=== PATIENT | female | born 1945 | race Caucasian/White ===

== ENCOUNTER 2020-06-11 14:51 | Outpatient (REF) | payer BC, SELFPAY ==
[2020-06-11 16:53] LABS: Appearance Urine CLEAR; Color Urine YELLOW; Glucose Urine UA NEG (NEG); Leukocyte Esterase Urine NEG (NEG); Nitrite Urine NEG (NEG); Specific Gravity - Urine <= 1.005 (1.005-1.025); Urine Blood NEG (NEG); Urine Ketones NEG (NEG); Urine Protein NEG (NEG-TRACE)
[2020-06-11 17:10] LABS: Calcium 10.1 mg/dL (8.4-10.2)
[2020-06-14 17:08] LABS: Calcium, Ionized 5.4 mg/dL (4.8-5.6)
== END 2020-06-11 14:52 | disposition home or self-care (01) ==
LOC: HO.HMGCLDS 14:51
PROVIDERS: PCP Internal Medicine; Visit Provider Nurse Practitioner Family
DX: E83.52 Hypercalcemia (principal); R35.0 Frequency of micturition
CPT/HCPCS: 81003; 82310; 82330

== ENCOUNTER 2020-12-06 08:23 | Outpatient (REF) | payer BC, SELFPAY ==
[2020-12-06 11:42] LABS: Hematocrit 42.6 % (37-47); Hemoglobin 13.9 g/dl (12.0-16.0); Mean Corpuscular HGB Conc 32.6 g/dl (31.0-35.0); Mean Corpuscular Hemoglobin 31.4 pg (27.0-33.0); Mean Corpuscular Volume 96.2 fL (80-98); Platelet Count 206 X10*3/uL (160-400); Red Blood Count 4.43 X10*6/uL (4.20-5.50); Red Cell Distribution Width 14.9 % (11.0-16.0); White Blood Count 5.2 X10*3/uL (4.8-10.8)
[2020-12-06 12:10] LABS: TSH reflex Free T4 1.54 uIU/mL (0.32-4.0); Vitamin D 25-OH Total 38.9 ng/mL (>30)
[2020-12-06 12:16] LABS: Alanine Aminotransferase 23 U/L (0-31); Albumin Level 4.3 g/dL (3.5-5.0); Alkaline Phosphatase 67 U/L (39-117); Anion Gap 14 (12-20); Aspartate Amino Transferase 30 U/L (5-31); Blood Urea Nitrogen 19 mg/dL (9-16); Calcium 10.4 mg/dL (8.4-10.2); Carbon Dioxide 27 mmol/L (22-29); Chloride 108 mmol/L (96-108); Cholesterol 205 mg/dL; Estimated Glomerular Filt Rate > 60; Glucose Fasting 93 mg/dL (60-99); HDL Cholesterol 73 mg/dL; LDL Cholesterol Calculated 119 mg/dl; Potassium 4.6 mmol/L (3.3-5.1); Sodium 144 mmol/L (135-145); Total Protein 6.3 g/dL (6.5-8.0); Triglycerides 65 mg/dL
[2020-12-08 10:26] LABS: Calcium (PTHI) 10.2 mg/dL (8.6-10.4); PTHI 80 pg/mL (14-64)
== END 2020-12-06 08:24 | disposition home or self-care (01) ==
LOC: HO.HMGCLDS 08:23
PROVIDERS: PCP Internal Medicine; Visit Provider Internal Medicine
DX: E78.5 Hyperlipidemia, unspecified (principal); E83.52 Hypercalcemia; G45.9 Transient cerebral ischemic attack, unspecified; G62.9 Polyneuropathy, unspecified
CPT/HCPCS: 36415; 80053; 80061; 82306; 83970; 84443; 85027

== ENCOUNTER 2021-01-07 10:54 | Outpatient (REF) | payer MEDICARE, SELFPAY ==
--- NOTE | ~2021-01-07 | MM_ITS ---
EXAMINATION: MM DIAGNOSTIC DIGITAL BREAST TOMOSYNTHESIS, BILATERAL CLINICAL INFORMATION: Palpable abnormalities about the right axilla. The lifetime risk of breast cancer based on the Tyrer-Cuzick Model is 2.8%. COMPARISON: Mammography: 06/10/2018 and studies dating back to 04/11/2007. TECHNIQUE: Digital breast tomosynthesis is performed in both the craniocaudal and mediolateral oblique views along with computer-aided detection (CAD). Synthesized 2D images are generated from the tomosynthesis. Additional right exaggerated craniocaudal view performed. FINDINGS: There are scattered areas of fibroglandular density (ACR BI-RADS breast composition Category b). There is a stable region of architectural distortion about the deep lateral aspect of the right breast which has been seen going back to study of 04/11/2007. Multiple lymph nodes are seen in region of palpable location within the right axilla. The lymph nodes appear similar to previous studies. The left breast appears unremarkable Targeted right breast ultrasound did not demonstrate any suspicious cystic or solid mass or region of architectural distortion about the lateral aspect of the breast. Targeted ultrasound examination to palpable region in the axilla demonstrates multiple lymph nodes with only 1 having a minimally thickened cortex to approximately 3.5 mm. There is no lobulation of the cortex and there is normal fatty cleft present. Patient states that she had her vaccine injection within the right arm. Results are discussed with the patient at time of visit. MM/MM tomosynthesis diagnostic BI IMPRESSION: There are no significant changes from prior study. ASSESSMENT: BI-RADS 2: Benign RECOMMENDATION: 1. Routine annual mammography screening due in 12 months. 2. Clinical follow-up for palpable abnormality. This patient's information was entered into a reminder system with a target due date for their next mammogram.
--- NOTE | ~2021-01-07 | US_ITS ---
EXAMINATION: US DIAGNOSTIC ULTRASOUND BREAST, RIGHT CLINICAL INFORMATION: Right axilla palpable region. COMPARISON: Mammography of same day and studies dating back to April 11, 2007. TECHNIQUE: Ultrasound of the breast is performed with real-time sosa scale imaging and color Doppler. FINDINGS: Targeted right breast ultrasound did not demonstrate any suspicious cystic or solid mass or region of architectural distortion about the lateral aspect of the breast. Targeted ultrasound examination to palpable region in the axilla demonstrates multiple lymph nodes with only one having a minimally thickened cortex to approximately 3.5 mm. There is no lobulation of the cortex and there is normal fatty cleft present. Patient states that she had her vaccine injection within the right arm Results are discussed with the patient at time of visit. US/US breast RT limited IMPRESSION: There are no significant changes from prior study. ASSESSMENT: BI-RADS 2: Benign RECOMMENDATION: Routine annual mammography screening due in 12 months. Clinical follow-up for palpable abnormality.
== END 2021-01-07 10:55 | disposition home or self-care (01) ==
LOC: HO.MAMMO 10:54
PROVIDERS: Visit Provider Internal Medicine
DX: N63.31 Unspecified lump in axillary tail of the right breast (principal); R59.0 Localized enlarged lymph nodes
CPT/HCPCS: 76642; 77062; 77066

== ENCOUNTER 2021-03-08 09:28 | Outpatient (REF) | payer MEDICARE, SELFPAY ==
[2021-03-08 12:05] LABS: Cholesterol 219 mg/dL; HDL Cholesterol 79 mg/dL; LDL Cholesterol Calculated 132 mg/dl; Triglycerides 41 mg/dL
== END 2021-03-08 09:29 | disposition home or self-care (01) ==
LOC: HO.HMGCLDS 09:28
PROVIDERS: PCP Internal Medicine; Visit Provider Internal Medicine
DX: E78.5 Hyperlipidemia, unspecified (principal)
CPT/HCPCS: 36415; 80061

== ENCOUNTER 2021-03-16 07:36 | Day surgery (SDC) | payer MEDICARE, SELFPAY ==
[2021-03-11 14:21] VITALS: BMI 23.9
[2021-03-14 09:38] VITALS: BMI 24.3
--- NOTE | 2021-03-15 09:07 | P.CONAN_ITS ---
Documented by User: Kirsten Johnson NP 03/15/21 09:31 HPI - Anesthesia Eval Consult details Narrative: 75yo F for Upper Endoscopy and Colonoscopy Cardiac cleared at low risk (saw cardiology 10/2020 with report of palps - loop recorder done and ECHO from [place] reviewed by cardiol) [facility] Active Problems Active Problems: All Active Problems (Updated 12/22/20 @ 12:07 by Della Ellison MD) HTN (hypertension) (Acute) Hyperlipidemia (Acute) Axillary adenopathy (Acute) Neuropathy, peripheral (Acute) AAA (abdominal aortic aneurysm) (Acute) Heart murmur (Acute) TIA (transient ischemic attack) (Acute) Hypercalcemia (Acute) H/O lumbosacral spine surgery (Acute) Past Medical History Medical History AAA (abdominal aortic aneurysm) Axillary adenopathy Cataracts, bilateral Celiac disease GERD (gastroesophageal reflux disease) Glaucoma Heart murmur HTN (hypertension) Hypercalcemia Hyperlipidemia IFG (impaired fasting glucose) Neuropathy, peripheral Osteopenia TIA (transient ischemic attack) Family History Family History Mother Heart problem Father Heart problem Brother Substance use disorder Surgical History Surgical History (Updated 03/14/21 @ 09:48 by Becky Bangura RN) H/O hernia repair H/O lumbosacral spine surgery History of esophagogastroduodenoscopy (EGD) History of knee replacement, total Hx of appendectomy Hx of cataract surgery Hx of colonoscopy Social History Social History (Updated 11/23/20 @ 11:13 by Meghan Clarke RN) Housing: House Alcohol intake: current Alcohol intake frequency: a few times a week Alcohol type: wine Patient Tobacco Use Status: Former Tobacco user Quit Date: e-Cigarette/Vaping Use: Never Used service: No Current occupational status: retired Meds Allergies Allergy/AdvReac Type Severity Reaction Status Date / Time gluten Allergy Gastrointestinal Verified 03/14/21 09:41 Upset Home Medications Medication Instructions Recorded Confirmed Last Taken Type aspirin 81 mg tablet,delayed 81 mg PO QAM 11/23/20 03/14/21 Unknown History release atorvastatin 40 mg tablet 40 mg PO BEDTIME 11/23/20 03/14/21 Unknown History celecoxib 200 mg capsule 200 mg PO BEDTIME 11/23/20 03/14/21 Unknown History gabapentin 300 mg capsule 600 mg PO BEDTIME 11/23/20 03/14/21 Unknown History omeprazole 20 mg capsule,delayed 20 mg PO DAILY PRN 11/23/20 03/14/21 Unknown History release telmisartan 20 mg tablet 20 mg PO DAILY 11/23/20 03/14/21 Unknown History trazodone 50 mg tablet 25 mg PO BEDTIME 11/23/20 03/14/21 Unknown History coQ10 (ubiquinol) 03/14/21 Unknown History flaxseed oil 03/14/21 03/14/21 Unknown History vitamin B complex 03/14/21 Unknown History Exam Exam Date and Time: March 15, [id number] Height,Weight and Vital Signs: Height 5 ft 8 in Weight 72.575 kg Pertinent Lab Results Pertinent Lab Results: Laboratory Tests 12/06/20 12/06/20 08:29 08:29 WBC 5.2 Hgb 13.9 Hct 42.6 Plt Count 206 Sodium 144 Potassium 4.6 Chloride 108 Carbon Dioxide 27 BUN 19 H Creatinine 0.78 Narrative Narrative: Per old records Stress 2019: neg at rest and with stress Echo: mild mitral regurg AAA@3.4cm Assessment and Plan Assessment Anesthesia Assessment: Chart Reviewed Documented by User: Tonie Garzon MD 03/16/21 07:29 [facility] Past Medical History Medical History AAA (abdominal aortic aneurysm) Axillary adenopathy Cataracts, bilateral Celiac disease GERD (gastroesophageal reflux disease) Glaucoma Heart murmur HTN (hypertension) Hypercalcemia Hyperlipidemia IFG (impaired fasting glucose) Neuropathy, peripheral Osteopenia TIA (transient ischemic attack) Functional capacity: independent ambulation Patient : No Family History Family History Mother Heart problem Father Heart problem Brother Substance use disorder Family history of problems with anesthesia: No Surgical History Surgical History (Updated 03/14/21 @ 09:48 by Becky Bangura RN) H/O hernia repair H/O lumbosacral spine surgery History of esophagogastroduodenoscopy (EGD) History of knee replacement, total Hx of appendectomy Hx of cataract surgery Hx of colonoscopy History of Problems with Anesthesia: No Social History Social History (Updated 11/23/20 @ 11:13 by Meghan Clarke RN) Housing: House Alcohol intake: current Alcohol intake frequency: a few times a week Alcohol type: wine Patient Tobacco Use Status: Former Tobacco user Quit Date: e-Cigarette/Vaping Use: Never Used service: No Current occupational status: retired [employer] Allergies Allergy/AdvReac Type Severity Reaction Status Date / Time gluten Allergy Gastrointestinal Verified 03/14/21 09:41 Upset Home Medications Medication Instructions Recorded Confirmed Last Taken Type aspirin 81 mg tablet,delayed 81 mg PO QAM 11/23/20 03/14/21 Unknown History release atorvastatin 40 mg tablet 40 mg PO BEDTIME 11/23/20 03/14/21 Unknown History celecoxib 200 mg capsule 200 mg PO BEDTIME 11/23/20 03/14/21 Unknown History gabapentin 300 mg capsule 600 mg PO BEDTIME 11/23/20 03/14/21 Unknown History omeprazole 20 mg capsule,delayed 20 mg PO DAILY PRN 11/23/20 03/14/21 Unknown History release telmisartan 20 mg tablet 20 mg PO DAILY 11/23/20 03/14/21 Unknown History trazodone 50 mg tablet 25 mg PO BEDTIME 11/23/20 03/14/21 Unknown History coQ10 (ubiquinol) 03/14/21 Unknown History flaxseed oil 03/14/21 03/14/21 Unknown History vitamin B complex 03/14/21 Unknown History Exam Airway Mallampati Class: II TM Dist: >3cm Neck ROM: Full Heart: RRR Lungs: CTA Assessment and Plan Final Anesthetic Review Family History of Problems with Anesthesia: No History of Problems with Anesthesia: No
[2021-03-16 08:14] VITALS: BP 102/57; PULSE 78; RESP 16; TEMP 37.1; O2SAT 99
[2021-03-16] MEDS: Lactated Ringers 1,000 ML 100 ML IVCONT (08:15)
[2021-03-16 09:52] VITALS: BP 94/51; PULSE 66; RESP 16; TEMP 36.4; O2SAT 98
--- NOTE | 2021-03-16 09:56 | PM.OP ---
Brief Operative Note Date of Service: 03/16/21 Pre-op diagnosis: Farooq's, Screening Post-op diagnosis: other (Hiatal hernia, Diverticulosis) Procedure: EGD with biopsies, Colonoscopy to the cecum and TI Surgeon: Lavell Bell Anesthesia: MAC Was an Business Banking Sales Assistant used for this Procedure?: No Estimated blood loss (mL): 2.0 Pathology: other (A. Descending duodenum B. EG Junction at 36cm) Condition: stable Disposition: PACU
[2021-03-16 10:07] VITALS: BP 108/54; PULSE 62; RESP 16; TEMP 36.4; O2SAT 97
--- NOTE | 2021-03-16 10:19 | OP_ITS ---
SURGEON: Lavell Bell MD INDICATIONS: The patient presents for evaluation of gastroesophageal reflux, Farooq's esophagus, colorectal cancer screening. Full consent has been obtained from her for this, including risks of bleeding and perforation. PREOPERATIVE DIAGNOSIS: POSTOPERATIVE DIAGNOSIS: PROCEDURE PERFORMED: Esophagogastroduodenoscopy with biopsies, and colonoscopy to the cecum and terminal ileum. ESTIMATED BLOOD LOSS: COMPLICATIONS: ANESTHESIA: Monitored anesthesia care. ASSISTANTS: SPECIMENS: PREOPERATIVE DIAGNOSES: Gastroesophageal reflux, Farooq's esophagus, colorectal cancer screening, and history of celiac disease. POSTOPERATIVE DIAGNOSES: Gastroesophageal reflux, Farooq's esophagus, colorectal cancer screening, and history of celiac disease, hiatal hernia, diverticulosis, and internal hemorrhoids. DESCRIPTION OF PROCEDURE: The patient was placed in the left lateral decubitus position. The Olympus video gastroscope was passed in the posterior oropharynx and upper esophagus under direct vision. The scope was passed slowly into the distal esophagus. The gastroesophageal junction appeared at 36 cm. There was a very minimal irregularity consistent with reflux, but there was no evidence of esophagitis nor any definitive evidence of Farooq's mucosa. The scope entered into the stomach. There was a small to moderate-sized hiatal hernia. The scope was advanced to pylorus and duodenum was cannulated in the descending portion. The duodenum including the bulb appeared normal without mass or ulceration. Biopsies were obtained from the 2nd and 3rd portions of duodenum. The scope was withdrawn back in the stomach. The gastric antrum and body appeared normal with good peristalsis. Scope was retroflexed visualizing the proximal stomach carefully, which appeared normal, without any sign of mass or ulceration. Scope was straightened. The scope was withdrawn back to the esophagus. Biopsies were obtained at the EG junction at 36 cm. Proximal to that, the esophageal mucosa appeared normal. The scope was withdrawn from the patient. She was turned around for the colonoscopy. The digital rectal exam revealed no abnormalities. The Olympus video pediatric colonoscope was entered into the rectum and advanced easily to the cecum. Once in the cecum, I did identify normal-appearing cecal pouch with appendiceal orifice and a normal-appearing ileocecal valve. The terminal ileum was cannulated and appeared normal. Scope was withdrawn back in the colon. The entire cecum and ileocecal valve appeared normal. The scope was slowly withdrawn assessing all mucosal surfaces carefully. For the most part, preparation was good throughout the colon although there was some areas of retained liquid stool which were suctioned and irrigated away as best as possible. I did not visualize any sign of polyps, colitis, nor angiodysplasia. There was a mild amount of sigmoid diverticulosis. In the rectum, scope was retroflexed visualizing internal hemorrhoids, but no other pathology. The rectal mucosa appeared normal. The scope was straightened and withdrawn from the patient. She tolerated both procedures well and was returned to recovery area in stable condition. IMPRESSION: 1. Hiatal hernia, history of Farooq's esophagus. 2. History of celiac disease. 3. Diverticulosis. 4. Internal hemorrhoids. PLAN: The results of the biopsy will be checked. She presently is asymptomatic in regard to reflux and given today's upper endoscopy findings, I do not think she needs to be on any chronic acid suppression at this time. I do not think she will need any further upper endoscopies in the future given the minimal findings on today's exam and her age, as long as today's biopsies are negative for dysplasia. She will continue her gluten-free diet. I do not think she will need any further screening colonoscopies either given her age and the negative exam. She was advised to begin some gluten-free fiber supplement such as Metamucil or Citrucel in regard to a reported sense that the bowel movements are somewhat narrow. She will see me otherwise on a p.r.n. basis. MD KENYA David/ENEIDA / [id number] MTDD
--- NOTE | 2021-03-16 11:37 | HO.POSTANES ---
Post Anesthesia Evaluation Post Anesthesia Evaluation Vital Signs: Vital Signs Temp Pulse Resp BP Pulse Ox 03/16/21 10:07 97.5 F 62 16 108/54 L 97 03/16/21 09:52 97.5 F 66 16 94/51 L 98 03/16/21 08:14 98.7 F 78 16 102/57 L 99 Anesthesia: Monitored Mental Status: Awake Pain Control: Satisfactory Nausea/Vomiting: None Hydration: Adequate Anesthesia-Related Issues: No Anes. Related Issues
== END 2021-03-16 10:55 | disposition home or self-care (01) ==
PROVIDERS: PCP Internal Medicine; Visit Provider Internal Medicine
PROC: (CPT 43239; principal; 2021-03-16 08:40)
DX: Z12.11 Encounter for screening for malignant neoplasm of colon (principal); K57.30 Diverticulosis of large intestine without perforation or abscess without bleeding; K64.8 Other hemorrhoids; K22.70 Barrett's esophagus without dysplasia; K21.9 Gastro-esophageal reflux disease without esophagitis; K44.9 Diaphragmatic hernia without obstruction or gangrene; K90.0 Celiac disease; I10 Essential (primary) hypertension; E03.9 Hypothyroidism, unspecified; Z86.73 Personal history of transient ischemic attack (TIA), and cerebral infarction without residual deficits; Z79.82 Long term (current) use of aspirin; Z79.899 Other long term (current) drug therapy; Z87.891 Personal history of nicotine dependence
CPT/HCPCS: 43239; G0121; 88305

== ENCOUNTER 2021-06-15 07:40 | Outpatient (REF) | payer MEDICARE, SELFPAY ==
[2021-06-15 12:13] LABS: Alanine Aminotransferase 29 U/L (0-31); Albumin Level 4.3 g/dL (3.5-5.0); Alkaline Phosphatase 82 U/L (39-117); Anion Gap 12 (12-20); Aspartate Amino Transferase 30 U/L (5-31); Bilirubin Total 0.8 mg/dL (0.0-1.0); Blood Urea Nitrogen 18 mg/dL (9-16); Calcium 10.5 mg/dL (8.4-10.2); Carbon Dioxide 27 mmol/L (22-29); Chloride 110 mmol/L (96-108); Cholesterol 201 mg/dL; Estimated Glomerular Filt Rate > 60; Glucose Fasting 107 mg/dL (60-99); HDL Cholesterol 80 mg/dL; LDL Cholesterol Calculated 110 mg/dl; Potassium 4.3 mmol/L (3.3-5.1); Sodium 145 mmol/L (135-145); Total Protein 6.4 g/dL (6.5-8.0); Triglycerides 55 mg/dL
[2021-06-17 15:16] LABS: Calcium, Ionized 5.3 mg/dL (4.8-5.6)
[2021-06-17 16:31] LABS: Calcium (PTHI) 10.4 mg/dL (8.6-10.4); PTHI 83 pg/mL (14-64)
== END 2021-06-15 07:41 | disposition home or self-care (01) ==
LOC: HO.HMGCLDS 07:40
PROVIDERS: Absent Provider Internal Medicine Cardiovascular Disease; PCP Internal Medicine; Visit Provider Internal Medicine
DX: E78.5 Hyperlipidemia, unspecified (principal); I10 Essential (primary) hypertension; I71.4 Abdominal aortic aneurysm, without rupture
CPT/HCPCS: 36415; 80053; 80061; 82330; 83970

== ENCOUNTER → 2021-11-15 15:12 | Outpatient (BNVA) | payer MEDICARE, SELFPAY | PROVIDERS: PCP Internal Medicine; Visit Provider Obstetrics & Gynecology | DX: Z13.89 Encounter for screening for other disorder (principal) ==

== ENCOUNTER 2021-12-06 10:57 | Outpatient (REF) | payer MEDICARE, SELFPAY ==
--- NOTE | ~2021-12-06 | MM_ITS ---
EXAMINATION: BONE DENSITOMETRY CLINICAL INDICATION: Menopausal and female climacteric states. COMPARISON: This is the patient's baseline examination. TECHNIQUE: Using a [employer] DXA System (software version: 13.1) manufactured by [email or web address], dual-energy x-ray absorptiometry was performed of the left femur and left forearm.. The images are of good technical quality. Summary results are attached. FINDINGS: LEFT FEMUR, NECK: BMD 0.750 g/cm2, Z-score -0.3, T-score -2.1, osteopenia. LEFT FEMUR, TOTAL: BMD 0.738 g/cm2, Z-score -0.6, T-score -2.1, osteopenia. LEFT FOREARM RADIUS 33%: BMD 0.636 g/cm2, Z-score -0.5, T-score -2.7, osteoporosis. IDENTIFIED RISK FACTORS: Early menopause, secondary osteoporosis, family history (parental hip fracture), recurrent fall, height loss. HISTORY OF FRACTURE: None listed. MEDICATIONS: None listed. MM/XR DEXA axial skeleton IMPRESSION: 1. DIAGNOSIS: Osteoporosis based on the lowest T-score value of -2.7 in the forearm radius 33% applying World Health Organization criteria. 2. 10-YEAR FRACTURE RISK PREDICTION, FRAX: Major osteoporotic fracture (clinical spine, forearm, hip or shoulder) 24.5%. Hip fracture 15.0%. 3. Treatment Recommendations: NOF guidelines recommend consideration for treatment in postmenopausal women and men age 50 and older presenting with the following: -A hip or vertebral (clinical or morphometric) fracture. -T-score less than or equal to -2.5 at the femoral neck or spine after appropriate evaluation to exclude secondary causes. -Low bone mass at the hip or spine and a 10-year fracture probability by FRAX of greater than or equal to 3% for hip fracture or greater than or equal to 20% for major osteoporotic fracture based on the [place] adapted WHO algorithm. 4. Other Recommendations: All treatment decisions require clinical judgment and consideration of individual patient factors, including patient preferences, comorbidities, previous drug use, risk factors not captured in the FRAX model (e.g. frailty, falls, vitamin D deficiency, increased bone turnover, interval significant decline in bone density) and possible under or overestimation of fracture risk by FRAX. Additional medical evaluation for secondary cause of low bone mineral density may be appropriate. FUTURE SCAN RECOMMENDATION: People with diagnosed cases of osteoporosis or at high risk for fracture should have regular bone mineral density tests. For patients eligible for Medicare, routine testing is allowed once every 2 years. The testing frequency can be increased to one year for patients who have rapidly progressing disease, those who are receiving or discontinuing medical therapy to restore bone mass, or have additional risk factors.
== END 2021-12-06 10:58 | disposition home or self-care (01) ==
LOC: HO.MAMMO 10:57
PROVIDERS: PCP Internal Medicine; Visit Provider Obstetrics & Gynecology
DX: Z13.820 Encounter for screening for osteoporosis (principal); Z78.0 Asymptomatic menopausal state; M81.0 Age-related osteoporosis without current pathological fracture
CPT/HCPCS: 77080

== ENCOUNTER 2021-12-26 13:32 | Outpatient (REF) | payer MEDICARE, SELFPAY ==
[2021-12-26 14:09] LABS: COVID-19 Test Negative (Negative)
== END 2021-12-26 13:33 | disposition home or self-care (01) ==
LOC: HO.LAB 13:32
PROVIDERS: Visit Provider Internal Medicine
DX: Z20.822 Contact with and (suspected) exposure to COVID-19 (principal)
CPT/HCPCS: 87635; C9803

== ENCOUNTER → 2022-01-03 12:21 | Outpatient (BNVA) | payer MEDICARE, SELFPAY | PROVIDERS: PCP Internal Medicine; Visit Provider Obstetrics & Gynecology | DX: M81.0 Age-related osteoporosis without current pathological fracture (principal) | CPT/HCPCS: 99212 ==

== ENCOUNTER 2022-01-19 11:54 | Outpatient (REF) | payer MEDICARE, SELFPAY ==
[2022-01-19 12:29] LABS: COVID-19 Test Positive (Negative); IDNOW Serial# 08D9AD1C
== END 2022-01-19 11:55 | disposition home or self-care (01) ==
LOC: HO.LAB 11:54
PROVIDERS: Visit Provider Internal Medicine
DX: Z20.822 Contact with and (suspected) exposure to COVID-19 (principal)
CPT/HCPCS: 87635; C9803

== ENCOUNTER 2022-02-14 09:36 | Outpatient (REF) | payer MEDICARE, SELFPAY ==
[2022-02-14 12:03] LABS: Alanine Aminotransferase 24 U/L (0-31); Aspartate Amino Transferase 27 U/L (5-31)
[2022-02-14 12:08] LABS: Cholesterol 201 mg/dL; HDL Cholesterol 77 mg/dL; LDL Cholesterol Calculated 115 mg/dl; Triglycerides 46 mg/dL
[2022-02-14 12:42] LABS: Reflex LDLD? No
== END 2022-02-14 09:37 | disposition home or self-care (01) ==
LOC: HO.HMGCLDS 09:36
PROVIDERS: PCP Internal Medicine; Visit Provider Internal Medicine Cardiovascular Disease
DX: E78.2 Mixed hyperlipidemia (principal)
CPT/HCPCS: 36415; 80061; 84450; 84460

== ENCOUNTER 2022-05-16 12:59 | Outpatient (REF) | payer MEDICARE, SELFPAY ==
--- NOTE | ~2022-05-16 | MM_ITS ---
EXAMINATION: MM SCREENING DIGITAL BREAST TOMOSYNTHESIS, BILATERAL CLINICAL INFORMATION: Screening. Asymptomatic. The lifetime risk of breast cancer based on the Tyrer-Cuzick Model is 3%. COMPARISON: Mammography: 01/07/2021, 06/10/2018, 05/14/2017 TECHNIQUE: Digital breast tomosynthesis is performed in both the craniocaudal and mediolateral oblique views along with computer-aided detection (CAD). Synthesized 2D images are generated from the tomosynthesis. Additional right CC view is provided. FINDINGS: There are scattered areas of fibroglandular density (ACR BI-RADS breast composition Category b). There are no significant masses, abnormal calcifications, or other abnormalities. No architectural abnormality or developing density. There are scattered incidental vascular calcifications. Cardiac loop recorder is seen overlying the left breast lower inner quadrant. The axilla are and skin contours are unremarkable. MM/MM tomosynthesis screening BI IMPRESSION: No mammographic evidence of malignancy. ASSESSMENT: BI-RADS 2: Benign RECOMMENDATION: Routine annual mammography screening. This patient's information was entered into a reminder system with a target due date for their next mammogram.
== END 2022-05-16 13:00 | disposition home or self-care (01) ==
LOC: HO.MAMMO 12:59
PROVIDERS: PCP Internal Medicine; Visit Provider Internal Medicine
DX: Z12.31 Encounter for screening mammogram for malignant neoplasm of breast (principal)
CPT/HCPCS: 77063; 77067

== ENCOUNTER 2023-01-04 09:22 | Outpatient (REF) | payer MEDICARE, SELFPAY ==
[2023-01-11 05:18] LABS: HPV mRNA E6/E7 rflx Not Detected (Not Detected)
== END 2023-01-04 09:23 | disposition home or self-care (01) ==
LOC: HO.LNP 09:22
PROVIDERS: PCP Internal Medicine; Visit Provider Obstetrics & Gynecology
DX: Z01.419 Encounter for gynecological examination (general) (routine) without abnormal findings (principal); Z11.51 Encounter for screening for human papillomavirus (HPV)
CPT/HCPCS: 87624; 88142

== ENCOUNTER 2023-01-25 12:32 | Outpatient (AMB) | payer MEDICARE, SELFPAY ==
[2023-01-25 12:34] VITALS: BP 140/72; PULSE 65; O2SAT 99; BMI 24.5
--- NOTE | 2023-01-25 12:34 | A.OFFPC_ITS ---
Vital Signs 01/25/23 12:34 Height 5 ft 7.8 in Weight 160 lb BMI 24.5 BP 140/72 H Blood Pressure Location Lt brachial Position Sitting Pulse 65 Pulse Source Pulse Oximeter Pulse Oximetry (%) 99 Oxygen Delivery Method Room Air Intake Visit Reasons: Pain in Left Calf Intake Note: Pt is here today for a sick visit. Pt c/o left foot swelling and pain on the L calf. Allergies gluten Allergy (Verified 01/25/23 12:38) Gastrointestinal Upset Medication List - Last Reconciled 01/25/23 by Della Ellison MD alendronate 70 mg PO QWEEK aspirin 81 mg PO QAM atorvastatin 40 mg PO DAILY celecoxib 200 mg PO BEDTIME [coQ10 (ubiquinol) ] ezetimibe 10 mg PO DAILY gabapentin 300 mg PO TID telmisartan 20 mg PO DAILY trazodone 25 mg (1/2 x 50 mg) PO BEDTIME [vitamin B complex ] Tobacco use date assessed: 01/25/23 Fall risk assessment: No Falls in past year Last assessed Fall Risk: 01/25/23 Dental Screening Dental Screen Date: 01/25/23 Did you have a dental visit in the last 12 months?: Yes Did you have a dental problem in the last 6 months where you did not have access to dental care?: No Was dental information given to patient?: Patient has dentist HPI Pain in Left Calf HPI Details Pr c/o L calf pain, tenderness and swelling for a few months getting worse for the last week. Patient used to see a vascular surgeon before [facility] and was recommended to have a surgery for venous insufficiency. The doctor retired and patient needs a new vascular surgeon. Pt c/o chronic sciatica with lower back pain radiating to both lower extremities. Patient had four lumbar spine surgeries in the last 6 months at [facility]. 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 [facility] Medical History (Updated 01/25/23 @ 13:08 by Della Ellison MD) AAA (abdominal aortic aneurysm) Axillary adenopathy Cataracts, bilateral Celiac disease GERD (gastroesophageal reflux disease) Glaucoma Heart murmur HTN (hypertension) Hypercalcemia Hyperlipidemia IFG (impaired fasting glucose) Neuropathy, peripheral Osteopenia TIA (transient ischemic attack) Surgical History H/O hernia repair H/O lumbosacral spine surgery History of esophagogastroduodenoscopy (EGD) History of knee replacement, total Hx of appendectomy Hx of cataract surgery Hx of colonoscopy Family History Mother Heart problem Father Heart problem Brother Substance use disorder Social History Housing: House Alcohol intake: current Alcohol intake frequency: a few times a week Alcohol type: wine Patient Tobacco Use Status: Former Tobacco user Quit Date: e-Cigarette/Vaping Use: Never Used service: No Current occupational status: retired Cognitive needs: No Hearing needs: No Vision needs: No Female Reproductive History Menstrual Age of Menarche: 13 Questionnaire PHQ-9 Over the last 2 weeks, how often have you been bothered by any of the following problems? 1. Little interest or pleasure in doing things: not at all 2. Feeling down, depressed, or hopeless: not at all 3. Trouble falling or staying asleep, or sleeping too much: not at all 4. Feeling tired or having little energy: not at all 5. Poor appetite or overeating: not at all 6. Feeling bad about yourself - or that you are a failure or have let yourself or your family down: not at all 7. Trouble concentrating on things, such as reading the newspaper or watching television: not at all 8. Moving or speaking so slowly that other people could have noticed. Or the opposite - being so fidgety or restless that you have been moving around a lot more than usual: not at all 9. Thoughts that you would be better off or of hurting yourself in some way: not at all Total score: 0 Depression Screening Interpretation: Negative Source: Developed by Drs. Lavell Serrano, Margoth Winslow, Alonzo Veras and colleagues, with an educational min from [employer]. Thrive Questionnaire Date Thrive assessed: 01/25/23 I am a: Patient What is your living situation today?: I have a steady place to live Within the past 12 months, did the food you bought not last and you didn't have the money to get more?: Never true Within the past 12 months, did you worry whether your food would run out before you got money to buy more?: Never true Do you have trouble paying for medicines?: No Do you have trouble getting transportation to medical appointments?: No Do you have trouble paying your heating and electricity bill?: No Do you have trouble taking care of your child, family member or friend?: No Do you have trouble with day-to-day activities such as bathing, preparing meals, shopping, managing finances, etc.?: No Are you currently unemployed and looking for a job?: No Are you interested in more education?: No Please select the resources that you would like help with: None Currently or been in a relationship where the following occur: no concerns reported AUDIT C Alcohol Use Questionnaire (AUDIT-C) 1. How often do you have a drink containing alcohol?: 2-3 times a week 2. How many drinks containing alcohol do you have on a typical day when you are drinking?: 1 or 2 3. How often do you have six or more drinks on one occasion?: Never Total Score: 3 TAE-7 AMB Questionnaire TAE-7 Date TAE - 7 assessed: 01/25/23 Feeling nervous, anxious, or on edge: 0 = Not at all Not being able to stop or control worryin = Not at all Worrying too much about different things: 0 = Not at all Trouble relaxin = Not at all Being so restless that it is hard to sit still: 0 = Not at all Becoming easily annoyed or irritable: 0 = Not at all Feeling afraid as if something awful might happen: 0 = Not at all Total TAE-7 score (0-4 normal; 5-9 mild; 10-14 moderate; 15-21 severe): 0 Source: Developed by Drs. Lavell Serrano, Margoth Winslow, Alonzo Veras and colleagues, with an educational min from [employer]. Review of Systems Const All systems reviewed & are unremarkable except as noted in HPI and below Reports no additional complaints Eyes Reports no additional complaints ENT Reports no additional complaints Card Reports no additional complaints Resp Reports no additional complaints GI Reports no additional complaints Reports no additional complaints Physical exam (Primary Care) Vital Signs: Last Vital Signs Pulse 65 01/25/23 12:34 BP 140/72 H 01/25/23 12:34 Pulse Ox 99 01/25/23 12:34 Oxygen Delivery Method Room Air 01/25/23 12:34 BMI result Body Mass Index 24.5 Tobacco/Smoking Status: Tobacco use Status Tobacco use date assessed 01/25/23 01/25/23 12:43 Patient Tobacco Use Status Former Tobacco user 01/25/23 12:43 e-Cigarette/Vaping Use Never Used 01/25/23 12:43 PHQ-9: PHQ-9 Score PHQ-9: Total score 0 01/25/23 12:44 Depression Screening Interpretation: Negative Thrive Assessment: Date of Thrive Assessment Date Thrive assessed 01/25/23 01/25/23 12:44 Currently or been in a relationship where the following occur: no concerns reported Const General: no acute distress HENMT Head: Yes normal to inspection Resp Effort & Inspection: normal respiratory effort Auscultation: clear to auscultation bilaterally Cardio Rhythm: regular rhythm Heart sounds: S1 normal heart sound present and S2 normal heart sound present GI Inspection: Yes normal to inspection Palpation (GI): Soft to palpation Percussion: Yes normal to percussion Extrem Other: This is slight tenderness in the left calf, no erythema warmth, SLR 90 degrees b/l Assessment and Plan Assessment & Plan (1) Venous insufficiency of left leg: Code(s): I87.2 - Venous insufficiency (chronic) (peripheral) Plan: Obtain venous ultrasound to rule out DVT and venous insufficiency. Referred to vascular surgeon (2) Hyperparathyroidism: Code(s): E21.3 - Hyperparathyroidism, unspecified Plan: Follow-up with checker at [facility] (3) Osteoporosis: Code(s): M81.0 - Age-related osteoporosis without current pathological fracture Plan: Follow-up with endocrinology [facility] (4) HTN (hypertension): Code(s): I10 - Essential (primary) hypertension Plan: Continue current medications (5) Hyperlipidemia: Comment: f/u with cardiology [place] Code(s): E78.5 - Hyperlipidemia, unspecified Orders: Orders US venous duplex LE LT Today I87.2 - Venous insufficiency (chronic) (peripheral) Referrals Vascular Surgery Referral I87.2 - Venous insufficiency (chronic) (peripheral) Coding Level of Care Code Est Pt Level 4 (01926) Diagnoses Venous insufficiency of left leg I87.2 Hyperparathyroidism E21.3 Osteoporosis M81.0 HTN (hypertension) I10 Hyperlipidemia E78.5
== END 2023-01-25 13:51 | disposition home or self-care (01) ==
PROVIDERS: PCP Internal Medicine; Visit Provider Internal Medicine
DX: I87.2 Venous insufficiency (chronic) (peripheral) (principal); E21.3 Hyperparathyroidism, unspecified; M81.0 Age-related osteoporosis without current pathological fracture; I10 Essential (primary) hypertension; E78.5 Hyperlipidemia, unspecified
CPT/HCPCS: 99214

== ENCOUNTER 2023-01-25 14:27 | Outpatient (REF) | payer MEDICARE, SELFPAY ==
--- NOTE | ~2023-01-25 | US_ITS ---
EXAMINATION: US VENOUS ULTRASOUND WITH DOPPLER LOWER EXTREMITY, LEFT CLINICAL INFORMATION: Left lower extremity tenderness. COMPARISON: None available. TECHNIQUE: Ultrasound of the deep veins is performed from the hip to the calf with compression sonography and color and pulse Doppler assessment. Spectral analysis with color-flow imaging is performed. FINDINGS: There is normal venous compression and respiratory variation and augmented flow. The visualized common femoral vein, superficial femoral vein, profunda femoral vein, popliteal vein, and the trifurcation region shows no evidence of deep venous thrombosis. There is a small left popliteal cyst measuring 2.3 x 0.8 x 1.4 cm. Color Doppler showed no abnormal vascular flow. Patent ectatic and tortuous veins are seen medially in the mid calf measuring up to 0.5 cm. Color Doppler showed associated vascular flow. The subcutaneous soft tissues are unremarkable. US/US venous duplex LE LT IMPRESSION: 1. No evidence for deep venous thrombosis in the visualized veins of the left lower extremity. 2. Small left popliteal cyst. 3. Patent left calf varicosities as detailed above.
== END 2023-01-25 14:28 | disposition home or self-care (01) ==
LOC: HO.US 14:27
PROVIDERS: PCP Internal Medicine; Visit Provider Internal Medicine
DX: I87.2 Venous insufficiency (chronic) (peripheral) (principal); R60.9 Edema, unspecified
CPT/HCPCS: 93971

== ENCOUNTER 2023-03-15 15:41 | Outpatient (AMB) | payer MEDICARE, SELFPAY ==
[2023-03-15 15:42] VITALS: BMI 24.3
--- NOTE | 2023-03-15 15:42 | MHC.OFFVIS ---
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 Pt states that she had acute pain on Left calf not as bad now. 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 Complaints include pain over varicosities, swelling of lower extremities, cramping, fatigue, and heaviness of the lower extremities. She does report an episode of phlebitis in the left calf It has been affecting there daily activities including walking. It is noted more so in left leg. Patient notes previous workup by Dr. Whaley and was positive for venous insufficiency a on 05/16/2017 Patient denies any history of DVT/ PE. Patient denies any history of phlebitis. Trial of compression includes - prescription compression since 2017 They now present for vascular evaluation regarding their varicose veins. Also of note she has been followed by Cardiology in [place] for an abdominal aortic aneurysm and carotid disease. [facility] Medical History HTN (hypertension) Axillary adenopathy Neuropathy, peripheral AAA (abdominal aortic aneurysm) Heart murmur TIA (transient ischemic attack) Hypercalcemia Cataracts, bilateral Osteopenia IFG (impaired fasting glucose) Hyperlipidemia Glaucoma GERD (gastroesophageal reflux disease) Celiac disease Surgical History History of knee replacement, total Hx of appendectomy Hx of colonoscopy History of esophagogastroduodenoscopy (EGD) H/O lumbosacral spine surgery Hx of cataract surgery H/O hernia repair Family History Mother Heart problem Father Heart problem Brother Substance use disorder Social History Housing: House Alcohol intake: current Alcohol intake frequency: a few times a week Alcohol type: wine Patient Tobacco Use Status: Former Tobacco user Quit Date: e-Cigarette/Vaping Use: Never Used service: No Current occupational status: retired Cognitive needs: No Hearing needs: No Vision needs: No Female Reproductive History Menstrual Age of Menarche: 13 Review of Systems Const Reports as per HPI ENT Reports no additional complaints Card Denies chest pain, Denies chest pain at rest and Denies chest pain with activity Resp Denies chest congestion and Denies cough GI Reports no additional complaints Musc Details: pain over varicosities, aching of lower extremities, swelling, cramping, heaviness and tiredness, itching Denies abnormal gait Skin/Breast Reports pruritus and Denies wounds Neuro Reports no additional complaints and Denies abnormal gait Psych Denies no additional complaints Physical Exam Vital Signs: BMI result Body Mass Index 24.3 Const General: cooperative, healthy appearing and comfortable Orientation/consciousness: oriented to person, oriented to place and oriented to time Neck Carotids: no bruits Chest Chest palpation & inspection: normal inspection of the chest and normal palpation of entire chest wall Resp Effort & Inspection: normal respiratory effort and able to speak in complete sentences Cardio Rate: regular rate Heart sounds: S1 normal heart sound present and S2 normal heart sound present Peripheral pulses: Peripheral pulses 2+ throughout GI Inspection: Yes normal to inspection Skin Other: +2 edema, large rope-like varicosities greater than 4 mm large cluster left posterior calf CEAP Classification C4 - skin color changes Ep - Etiology Primary As - superficial veins P - reflux General skin exam: dry skin Neuro General: oriented to person, oriented to place and oriented to time Extrem Right lower extremity: full ROM, normal capillary refill and edema Left lower extremity: full ROM, normal capillary refill and edema Psych Mental Status: mental status grossly normal Results Reviewed Results Reviewed: Written report of CT angiogram dated 11/07/2020 was negative for any significant carotid disease. 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 She would like to transfer her care to [facility]. Once we take care of her venous disease would happy happy to surveil her carotids and aorta as well. (2) Varicose veins of right lower extremity with inflammation: Code(s): I83.11 - Varicose veins of right lower extremity with inflammation Plan: In short, the patient has evidence of venous insufficiency. I have discussed the pathophysiology with the patient. In addition I have provided informational material regarding venous disease to the patient. We have discussed conservative measures including compression, elevation, and exercise. I have also provided a handout regarding appropriate use of compression stockings and where to purchase good compression stockings as well. I have taken the liberty of ordering venous insufficiency testing with the patient. They will follow up with me after testing. The patient had an opportunity to ask questions regarding the treatment plan. All questions were answered. Imaging studies, laboratory studies and physical exam results were discussed and reviewed in detail. No major barriers to understanding were identified. The patient expressed understanding and agreement with the above treatment plan. The patient is aware they should contact our office by phone for worsening of the current condition or the appearance of new symptoms. Thank you for allowing me to participate in the vascular care of this patient. If you have any questions or concerns regarding the treatment for the above condition please do not hesitate to contact me. The office telephone contact is [phone]. This note is constructed using voice recognition software. While every effort has been made to ensure accuracy, flow trader errors may have been included. Thank you for allowing me to participate in the care of your patient. Yours sincerely, Seamus Pittman MD, FACS, R.P.V.I. (3) Carotid stenosis: Code(s): I65.29 - Occlusion and stenosis of unspecified carotid artery Qualifiers: Laterality: bilateral Qualified Code(s): I65.23 - Occlusion and stenosis of bilateral carotid arteries Plan: In short patient has a questionable history of prior carotid stenosis. CT angio dated 11/07/2020 was negative for any significant disease. May be worthwhile to get a follow-up surveillance test. She has been followed by a doctor down in [place] regarding this. Once we treat her venous disease will plan to surveil her carotid and aorta as well. Thank you for allowing us to participate in her care. If there are any questions or concerns please do not hesitate to contact us. Orders: Orders US venous duplex LE BI 1 Week I83.11 - Varicose veins of right lower extremity with inflammation Coding Level of Care Code New Pt Level 4 (16953) Diagnoses Infrarenal abdominal aortic aneurysm (AAA) without rupture I71.43 Abdominal aorta location: infrarenal aorta Presence of rupture: without rupture Varicose veins of right lower extremity with inflammation I83.11 Bilateral carotid artery stenosis I65.23 Laterality: bilateral
== END 2023-03-16 12:57 | disposition home or self-care (01) ==
PROVIDERS: PCP Internal Medicine; Visit Provider Surgery Vascular Surgery
DX: I71.43 Infrarenal abdominal aortic aneurysm, without rupture (principal); I83.11 Varicose veins of right lower extremity with inflammation; I65.23 Occlusion and stenosis of bilateral carotid arteries
CPT/HCPCS: 99204

== ENCOUNTER → 2023-03-15 15:41 | Outpatient (BNVA) | payer MEDICARE, SELFPAY | PROVIDERS: PCP Internal Medicine; Visit Provider Surgery Vascular Surgery ==

== ENCOUNTER 2023-04-02 12:50 | Outpatient (REF) | payer MEDICARE, SELFPAY | END 2023-04-02 12:51 | disposition home or self-care (01) | LOC: HO.US 12:50 | PROVIDERS: PCP Internal Medicine; Visit Provider Surgery Vascular Surgery | DX: I83.11 Varicose veins of right lower extremity with inflammation (principal) | CPT/HCPCS: 93970 ==

== ENCOUNTER 2023-04-10 14:55 | Outpatient (AMB) | payer MEDICARE, SELFPAY ==
--- NOTE | 2023-04-10 15:01 | MHC.OFFVIS ---
Intake Vital Signs 04/10/23 15:03 Height 5 ft 8 in Weight 158 lb BMI 24.0 Intake Visit Reasons: follow up US 04/02/2023 Intake Note: pt here for status post US she has a hx of VV. P states that she has stilla little bit of pain behind her left knee but other then that she feels ok Allergies gluten Allergy (Verified 04/10/23 15:03) Gastrointestinal Upset HPI follow up US 04/02/2023 HPI Details Complex 77-year-old female presents for follow-up with venous insufficiency. She had seen my former partner Dr. Whaley back E 05/16/2017. At that time she was worked up but root did not undergo any significant treatment. She has been using compression reports some reasonable relief. She now presents to us for follow-up with venous insufficiency testing. In addition she has been seen by molder hand in [place] where she reports she has been followed for aortic aneurysm and carotid disease. It appears that this molder hand has been managing her medically as well in controlling her statins and blood pressure medication. She now presents to us for follow-up evaluation. [facility] Medical History HTN (hypertension) Axillary adenopathy Neuropathy, peripheral AAA (abdominal aortic aneurysm) Heart murmur TIA (transient ischemic attack) Hypercalcemia Cataracts, bilateral Osteopenia IFG (impaired fasting glucose) Hyperlipidemia Glaucoma GERD (gastroesophageal reflux disease) Celiac disease Surgical History History of knee replacement, total Hx of appendectomy Hx of colonoscopy History of esophagogastroduodenoscopy (EGD) H/O lumbosacral spine surgery Hx of cataract surgery H/O hernia repair Family History Mother Heart problem Father Heart problem Brother Substance use disorder Social History Housing: House Alcohol intake: current Alcohol intake frequency: a few times a week Alcohol type: wine Patient Tobacco Use Status: Former Tobacco user Quit Date: e-Cigarette/Vaping Use: Never Used service: No Current occupational status: retired Cognitive needs: No Hearing needs: No Vision needs: No Female Reproductive History Menstrual Age of Menarche: 13 Review of Systems Const All systems reviewed & are unremarkable except as noted in HPI and below Reports no additional complaints ENT Reports Normal hearing present Card Denies chest pain, Denies chest pain at rest, Denies chest pain with activity and Denies pedal edema Resp Denies cough GI Denies abdominal pain Musc Denies abnormal gait, Denies muscle cramps and Denies radiating pain into limb Skin/Breast Denies skin ulcer and Denies wounds Neuro Reports Normal hearing present and Denies abnormal gait Psych Reports no additional complaints Physical Exam Vital Signs: BMI result Body Mass Index 24.0 Const General: cooperative, healthy appearing and comfortable Orientation/consciousness: oriented to person, oriented to place and oriented to time HEENT Head: Yes normal to inspection Neck Neck: Yes normal visual inspection Carotids: no bruits Chest Chest palpation & inspection: normal inspection of the chest Resp Effort & Inspection: normal respiratory effort and able to speak in complete sentences Auscultation: clear to auscultation bilaterally, no crackles, no rales, no rhonchi and no wheezes Cardio Rate: regular rate Rhythm: regular rhythm Heart sounds: S1 normal heart sound present and S2 normal heart sound present Bruits: no carotid bruits Peripheral pulses: Peripheral pulses 2+ throughout GI Inspection: Yes normal to inspection Skin Wounds: no wounds Hair: normal Neuro General: oriented to person, oriented to place and oriented to time Cranial nerves: Yes CN's II-XII intact bilaterally and Yes Normal hearing present Cognition (Neuro): normal cognition Motor exam (neuro): 5/5 motor strength present throughout Extrem Other: venous exam: +1 edema. General: No clubbing, No cyanosis and No edema Psych Appearance: grossly normal Mental Status: mental status grossly normal Speech and movement: Normal speech and movement present Results Reviewed Results Reviewed: Brief summary of venous insufficiency testing is as follows: right great saphenous vein: Positive right small saphenous vein: negative right accessory vein: none present left great saphenous vein: Positive left small saphenous vein: negative left accessory vein: none present Please note there is no evidence of any venous aneurysms or significant tortuosity Assessment & Plan Assessment & Plan (1) Varicose veins of right lower extremity with inflammation: Code(s): I83.11 - Varicose veins of right lower extremity with inflammation Plan: In short patient has venous insufficiency. Unclear why we had performed this workup as she is planning to be in [place] for the next 6 months or so. She will call if she requires a follow-up visit upon her return. Thank you for allowing us to assist in her care. If there are any questions or concerns please do not hesitate to contact us. (2) Carotid stenosis: Comment: CT angiogram at [facility] from 11/07/2020 was essentially negative. Code(s): I65.29 - Occlusion and stenosis of unspecified carotid artery Qualifiers: Laterality: bilateral Qualified Code(s): I65.23 - Occlusion and stenosis of bilateral carotid arteries Plan: Unusual that the patient has no significant risk factors. She has been followed by molder hand in [place] who has been ordering routine carotid ultrasounds. She is transferring her care to [facility]. Will get baseline study. Thank you for allowing us to assist in her care. 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 Will get baseline evaluation. Quite unusual that she does have an aneurysm with no significant risk factors. Orders: Orders US abdominal aortic aneurysm 1 Week I71.43 - Infrarenal abdominal aortic aneurysm, without rupture US carotid duplex BI 1 Week I65.23 - Occlusion and stenosis of bilateral carotid arteries Coding Level of Care Code Est Pt Level 4 (34574) Diagnoses Varicose veins of right lower extremity with inflammation I83.11 Bilateral carotid artery stenosis I65.23 Laterality: bilateral Infrarenal abdominal aortic aneurysm (AAA) without rupture I71.43 Abdominal aorta location: infrarenal aorta Presence of rupture: without rupture
[2023-04-10 15:03] VITALS: BMI 24.0
== END 2023-04-10 15:27 | disposition home or self-care (01) ==
PROVIDERS: PCP Internal Medicine; Visit Provider Surgery Vascular Surgery
DX: I83.11 Varicose veins of right lower extremity with inflammation (principal); I65.23 Occlusion and stenosis of bilateral carotid arteries; I71.43 Infrarenal abdominal aortic aneurysm, without rupture
CPT/HCPCS: 99214

== ENCOUNTER → 2023-04-10 14:55 | Outpatient (BNVA) | payer MEDICARE, SELFPAY | PROVIDERS: PCP Internal Medicine; Visit Provider Surgery Vascular Surgery | DX: I83.11 Varicose veins of right lower extremity with inflammation (principal); I65.23 Occlusion and stenosis of bilateral carotid arteries; I71.43 Infrarenal abdominal aortic aneurysm, without rupture | CPT/HCPCS: 99212 ==

== ENCOUNTER 2023-05-29 15:41 | Outpatient (REF) | payer MEDICARE, SELFPAY ==
--- NOTE | ~2023-05-29 | MM_ITS ---
EXAMINATION: MM SCREENING DIGITAL BREAST TOMOSYNTHESIS, BILATERAL CLINICAL INFORMATION: Screening. Asymptomatic. COMPARISON: Mammography: This study is compared with prior exams dating back to 2017. TECHNIQUE: Digital breast tomosynthesis is performed in both the craniocaudal and mediolateral oblique views along with computer-aided detection (CAD). Synthesized 2D images are generated from the tomosynthesis. FINDINGS: There are scattered areas of fibroglandular density (ACR BI-RADS breast composition Category b). There are no significant masses, abnormal calcifications, or other abnormalities. There is a cardiac loop recorder in the medial aspect of the left breast. MM/MM tomosynthesis screening BI IMPRESSION: No mammographic evidence of malignancy. ASSESSMENT: BI-RADS BI-RADS 1 - Negative RECOMMENDATION: Routine annual mammography screening. 1 year F/U This examination should not preclude the clinical evaluation of a suspicious palpable abnormality. This patient's information was entered into a reminder system with a target due date for their next mammogram.
== END 2023-05-29 15:42 | disposition home or self-care (01) ==
LOC: HO.MAMMO 15:41
PROVIDERS: PCP Internal Medicine; Visit Provider Internal Medicine
DX: Z12.31 Encounter for screening mammogram for malignant neoplasm of breast (principal)
CPT/HCPCS: 77063; 77067

== ENCOUNTER → 2023-05-29 15:45 | Outpatient (BNV) | payer MEDICARE, SELFPAY | PROVIDERS: PCP Internal Medicine; Visit Provider Radiology Diagnostic Radiology | DX: Z12.31 Encounter for screening mammogram for malignant neoplasm of breast (principal) | CPT/HCPCS: 77063; 77067 ==

== ENCOUNTER 2023-05-31 10:24 | Outpatient (AMB) | payer MEDICARE, SELFPAY ==
--- NOTE | 2023-05-31 10:33 | A.OFFPC_ITS ---
Vital Signs 05/31/23 10:34 Height 5 ft 8 in Weight 162 lb BMI 24.6 BP 140/78 H Blood Pressure Location Lt brachial Position Sitting Pulse 65 Pulse Source Pulse Oximeter Pulse Oximetry (%) 97 Oxygen Delivery Method Room Air Intake Visit Reasons: PE Intake Note: Pt is here today for a PE. Allergies gluten Allergy (Verified 05/31/23 10:39) Gastrointestinal Upset Medication List - Last Reconciled 05/31/23 by Della Ellison MD aspirin 81 mg PO QAM atorvastatin 40 mg PO DAILY celecoxib 200 mg PO BEDTIME [coQ10 (ubiquinol) ] ezetimibe 10 mg PO DAILY gabapentin 300 mg PO DAILY telmisartan 20 mg PO DAILY trazodone 25 mg (1/2 x 50 mg) PO BEDTIME [vitamin B complex ] Tobacco use date assessed: 05/31/23 Fall risk assessment: No Falls in past year Last assessed Fall Risk: 05/31/23 Dental Screening Dental Screen Date: 05/31/23 Did you have a dental visit in the last 12 months?: Yes Did you have a dental problem in the last 6 months where you did not have access to dental care?: No Was dental information given to patient?: Patient has dentist HPI PE HPI Details Pt presents for PE. Pt follows up with Endo for osteoporosis and elevated PTH. She will be starting Ca and vit D supplement and have 24 hr collection and labs in 2 months in [place]. [facility] Medical History HTN (hypertension) Axillary adenopathy Neuropathy, peripheral AAA (abdominal aortic aneurysm) Heart murmur TIA (transient ischemic attack) Hypercalcemia Cataracts, bilateral Osteopenia IFG (impaired fasting glucose) Hyperlipidemia Glaucoma GERD (gastroesophageal reflux disease) Celiac disease Surgical History History of knee replacement, total Hx of appendectomy Hx of colonoscopy History of esophagogastroduodenoscopy (EGD) H/O lumbosacral spine surgery Hx of cataract surgery H/O hernia repair Family History Mother Heart problem Father Heart problem Brother Substance use disorder Social History Housing: House Alcohol intake: current Alcohol intake frequency: a few times a week Alcohol type: wine Patient Tobacco Use Status: Former Tobacco user Quit Date: e-Cigarette/Vaping Use: Never Used service: No Current occupational status: retired Cognitive needs: No Hearing needs: No Vision needs: No Female Reproductive History Menstrual Age of Menarche: 13 Questionnaire Thrive Questionnaire Date Thrive assessed: 01/25/23 AUDIT C Alcohol Use Questionnaire (AUDIT-C) 1. How often do you have a drink containing alcohol?: Monthly or less 2. How many drinks containing alcohol do you have on a typical day when you are drinking?: 1 or 2 3. How often do you have six or more drinks on one occasion?: Never Total Score: 1 TAE-7 AMB Questionnaire TAE-7 Date TAE - 7 assessed: 01/25/23 Source: Developed by Drs. Lavell Serrano, Margtoh Winslow, Alonzo Veras and colleagues, with an educational min from [employer]. Review of Systems Const All systems reviewed & are unremarkable except as noted in HPI and below Reports no additional complaints Eyes Reports no additional complaints ENT Reports no additional complaints Card Reports no additional complaints Resp Reports no additional complaints GI Reports no additional complaints Reports no additional complaints Physical exam (Primary Care) Vital Signs: Last Vital Signs Pulse 65 05/31/23 10:34 BP 140/78 H 05/31/23 10:34 Pulse Ox 97 05/31/23 10:34 Oxygen Delivery Method Room Air 05/31/23 10:34 BMI result Body Mass Index 24.6 Tobacco/Smoking Status: Tobacco use Status Tobacco use date assessed 05/31/23 05/31/23 10:40 Patient Tobacco Use Status Former Tobacco user 05/31/23 10:40 e-Cigarette/Vaping Use Never Used 05/31/23 10:40 Thrive Assessment: Date of Thrive Assessment Date Thrive assessed 01/25/23 05/31/23 10:40 Const General: no acute distress HENMT Head: Yes normal to inspection Ears: hearing grossly normal bilaterally Face and sinus: Yes normal facial exam Mouth: Normal oral and palatal mucosa present Throat: Yes posterior oropharynx normal Eyes General: appearance normal, both eyes and all related structures Neck Neck: Yes no lymphadenopathy and Yes supple Resp Effort & Inspection: normal respiratory effort Auscultation: clear to auscultation bilaterally Cardio Rhythm: regular rhythm Heart sounds: S1 normal heart sound present and S2 normal heart sound present GI Inspection: Yes normal to inspection Palpation (GI): Soft to palpation Percussion: Yes normal to percussion Auscultation: normal bowel sounds Assessment and Plan Assessment & Plan (1) HTN (hypertension): Code(s): I10 - Essential (primary) hypertension Plan: cont Telmisartan, pt will have BP monitored in [place], leaving in 3 days for 6 months, (2) Hyperlipidemia: Comment: f/u with cardiology [place], Atorvastatin caused myalgia, Code(s): E78.5 - Hyperlipidemia, unspecified Plan: on Atorvastatin /Zetia LDL >100, change to Crestor 40 mg and Zetia, check lipids in 2 months in [place] (3) Osteoporosis: Comment: DEXA 12/21 T score -2.7, f/u with Endo, started on Ca and vit D 05/24 Code(s): M81.0 - Age-related osteoporosis without current pathological fracture Plan: f/u with Endo (4) Hyperparathyroidism: Code(s): E21.3 - Hyperparathyroidism, unspecified (5) AAA (abdominal aortic aneurysm): Comment: 3.4 cm, 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 She is going to [place] for 6 months and will follow-up after she returns in the spring Orders: Orders Lipid Panel 2 Months E78.5 - Hyperlipidemia, unspecified, I10 - Essential (primary) hypertension Comprehensive [place]. Panel Fast 2 Months E78.5 - Hyperlipidemia, unspecified, I10 - Essential (primary) hypertension Complete Blood Count Auto Diff 2 Months E78.5 - Hyperlipidemia, unspecified, I10 - Essential (primary) hypertension Medications: New famotidine 40 mg PO BEDTIME 90 tabs 3RF rosuvastatin (Crestor) 40 mg PO DAILY 90 tabs 3RF coenzyme Q10 100 mg PO DAILY 90 caps 3RF Changed From gabapentin 300 mg PO TID 90 caps 3RF To gabapentin 300 mg PO DAILY Discontinued alendronate Discontinued Reason: Doctor's Order 70 mg PO QWEEK 14 tabs 3RF Coding Level of Care Code Est Pt Prev Care >65y(61452) Diagnoses HTN (hypertension) I10 Hyperlipidemia E78.5 Osteoporosis M81.0 Hyperparathyroidism E21.3 Infrarenal abdominal aortic aneurysm (AAA) without rupture I71.43 Abdominal aorta location: infrarenal aorta Presence of rupture: without rupture Annual physical exam Z00.00
[2023-05-31 10:34] VITALS: BP 140/78; PULSE 65; O2SAT 97; BMI 24.6
== END 2023-05-31 12:03 | disposition home or self-care (01) ==
PROVIDERS: PCP Internal Medicine; Visit Provider Internal Medicine
DX: Z00.00 Encounter for general adult medical examination without abnormal findings (principal); E21.3 Hyperparathyroidism, unspecified; I71.43 Infrarenal abdominal aortic aneurysm, without rupture; I10 Essential (primary) hypertension; E78.5 Hyperlipidemia, unspecified; M81.0 Age-related osteoporosis without current pathological fracture
CPT/HCPCS: 99397

== ENCOUNTER 2023-10-25 12:58 | Outpatient (AMB) | payer MEDICARE, SELFPAY ==
[2023-10-25 13:04] VITALS: BP 144/78; PULSE 67; TEMP 36.1; O2SAT 98; BMI 25.1
--- NOTE | 2023-10-25 13:04 | AM.OFFWIN_ITS ---
Intake Vital Signs 10/25/23 13:04 Height 5 ft 8 in Weight 165 lb BMI 25.1 BP 144/78 H Blood Pressure Location Lt brachial Position Sitting Pulse 67 Pulse Source Pulse Oximeter Temp 97.0 F Temp Source Temporal Artery Scan Pulse Oximetry (%) 98 Oxygen Delivery Method Room Air Intake Visit Reasons: EP UTI Intake Note: pt is here today for UTI started 3 days ago Patient Tobacco Use Status: Former Tobacco user Quit Date: Allergies gluten Allergy (Verified 10/25/23 13:13) Gastrointestinal Upset Do you need a note to return to daycare/school/sports/work: No HPI HPI Comments History of Present Illness Details Patient presents to urgent care for evaluation of mild dysuria and occasional bladder spasm after urinating. Suspect UTI. No back pain nausea vomiting fever chills PFSH Medical History HTN (hypertension) Axillary adenopathy Neuropathy, peripheral AAA (abdominal aortic aneurysm) Heart murmur TIA (transient ischemic attack) Hypercalcemia Cataracts, bilateral Osteopenia IFG (impaired fasting glucose) Hyperlipidemia Glaucoma GERD (gastroesophageal reflux disease) Celiac disease Surgical History History of knee replacement, total Hx of appendectomy Hx of colonoscopy History of esophagogastroduodenoscopy (EGD) H/O lumbosacral spine surgery Hx of cataract surgery H/O hernia repair Family History Mother Heart problem Father Heart problem Brother Substance use disorder Social History Housing: House Alcohol intake: current Alcohol intake frequency: a few times a week Alcohol type: wine Patient Tobacco Use Status: Former Tobacco user Quit Date: e-Cigarette/Vaping Use: Never Used service: No Current occupational status: retired Cognitive needs: No Hearing needs: No Vision needs: No Female Reproductive History Menstrual Age of Menarche: 13 Review of Systems Const Denies headache(s) ENT Denies headache(s) GI Denies abdominal pain and Denies diarrhea Reports difficulty voiding Neuro Denies headache(s) Physical Exam Vital Signs: Last Vital Signs Temp 97.0 F 10/25/23 13:04 Pulse 67 10/25/23 13:04 BP 144/78 H 10/25/23 13:04 Pulse Ox 98 10/25/23 13:04 Oxygen Delivery Method Room Air 10/25/23 13:04 BMI result Body Mass Index 25.1 Const General: healthy appearing and no acute distress HEENT Head: Yes normal to inspection Resp Effort & Inspection: normal respiratory effort and able to speak in complete sentences GI Inspection: Yes normal to inspection Results AMB Urinalysis, Automated UA Leukoctes 500 León/uL Last Edit by Eleni Florence MA on 10/25/23 13:18 UA Nitrite Negative Last Edit by Eleni Florence MA on 10/25/23 13:18 UA Urobilinogen 0.2 mg/dL Last Edit by Eleni Florence MA on 10/25/23 13:18 UA Protein 0 mg/dL Last Edit by Eleni Florence MA on 10/25/23 13:18 UA pH 6.0 Last Edit by Eleni Florence MA on 10/25/23 13:18 UA Blood 0 Mark/uL Last Edit by Eleni Florence MA on 10/25/23 13:18 UA Specific [place] 1.005 Last Edit by Eleni Florence MA on 10/25/23 13:18 UA Ketone Negative Last Edit by Eleni Florence MA on 10/25/23 13:18 UA Bilirubin 0 mg/dL Last Edit by Eleni Florence MA on 10/25/23 13:18 UA Glucose 0 mg/dL Last Edit by Eleni Florence MA on 10/25/23 13:18 Results Reviewed Results Reviewed: Laboratory Last Values Urine pH (Auto) 6.0 10/25/23 13:16 Specific [place] (Auto) 1.005 10/25/23 13:16 Urine Protein (Auto) 0 mg/dL 10/25/23 13:16 Glucose (UA)(Auto) 0 mg/dL 10/25/23 13:16 Urine Ketones (Auto) Negative 10/25/23 13:16 Urine Blood (Auto) 0 Mark/uL 10/25/23 13:16 Urine Nitrite (Auto) Negative 10/25/23 13:16 Urine Bilirubin (Auto) 0 mg/dL 10/25/23 13:16 Urine Urobilinogen (Auto) 0.2 mg/dL 10/25/23 13:16 Leukocyte Esterase (Auto) 500 León/uL 10/25/23 13:16 Assessment & Plan Assessment & Plan (1) UTI (urinary tract infection), uncomplicated: Code(s): N39.0 - Urinary tract infection, site not specified Plan Patient's symptoms consistent with UTI. No sign of pyelonephritis. Will treat with antibiotics.. Patient well-appearing Medications: New sulfamethoxazole-trimethoprim 800-160 mg (Bactrim DS) 1 tab PO BID 7 days 14 tabs 0RF Coding Level of Care Code Est Pt Level 3 (32624) Diagnoses UTI (urinary tract infection), uncomplicated N39.0
== END 2023-10-25 13:58 | disposition home or self-care (01) ==
PROVIDERS: PCP Internal Medicine; Visit Provider Emergency Medicine
DX: N39.0 Urinary tract infection, site not specified (principal)
CPT/HCPCS: 99213

== ENCOUNTER 2023-11-01 12:44 | Outpatient (AMB) | payer MEDICARE, SELFPAY ==
[2023-11-01 12:52] VITALS: BP 122/78; PULSE 62; O2SAT 97; BMI 24.3
--- NOTE | 2023-11-01 12:52 | A.OFFPC_ITS ---
Vital Signs 11/01/23 12:52 Height 5 ft 8 in Weight 160 lb BMI 24.3 BP 122/78 Blood Pressure Location Lt brachial Position Sitting Pulse 62 Pulse Source Pulse Oximeter Pulse Oximetry (%) 97 Oxygen Delivery Method Room Air Intake Visit Reasons: follow up for UTIs Allergies gluten Allergy (Verified 11/01/23 12:52) Gastrointestinal Upset Medication List - Last Reconciled 11/01/23 by Della Ellison MD aspirin 81 mg PO QAM biotin PO calcium (calcium citrate) PO celecoxib 200 mg PO BEDTIME cholecalciferol (vitamin D3) PO ezetimibe 10 mg PO DAILY famotidine 40 mg PO BEDTIME gabapentin 300 mg PO DAILY rosuvastatin (Crestor) 40 mg PO DAILY sulfamethoxazole-trimethoprim 800-160 mg (Bactrim DS) 1 tab PO BID 7 days telmisartan 20 mg PO DAILY trazodone 25 mg (1/2 x 50 mg) PO BEDTIME [vitamin B complex ] Tobacco use date assessed: 11/01/23 Fall risk assessment: No Falls in past year Last assessed Fall Risk: 11/01/23 Dental Screening Dental Screen Date: 11/01/23 Did you have a dental visit in the last 12 months?: Yes Did you have a dental problem in the last 6 months where you did not have access to dental care?: No Was dental information given to patient?: Patient has dentist HPI follow up for UTIs HPI Details Pt presents for f/u HTN and hyperlipid, stable on meds. PFSH Medical History HTN (hypertension) Axillary adenopathy Neuropathy, peripheral AAA (abdominal aortic aneurysm) Heart murmur TIA (transient ischemic attack) Hypercalcemia Cataracts, bilateral Osteopenia IFG (impaired fasting glucose) Hyperlipidemia Glaucoma GERD (gastroesophageal reflux disease) Celiac disease Surgical History History of knee replacement, total Hx of appendectomy Hx of colonoscopy History of esophagogastroduodenoscopy (EGD) H/O lumbosacral spine surgery Hx of cataract surgery H/O hernia repair Family History Mother Heart problem Father Heart problem Brother Substance use disorder Social History Housing: House Alcohol intake: current Alcohol intake frequency: a few times a week Alcohol type: wine Patient Tobacco Use Status: Former Tobacco user Quit Date: e-Cigarette/Vaping Use: Never Used service: No Current occupational status: retired Cognitive needs: No Hearing needs: No Vision needs: No Female Reproductive History Menstrual Age of Menarche: 13 Questionnaire Thrive Questionnaire Date Thrive assessed: 01/25/23 AUDIT C Alcohol Use Questionnaire (AUDIT-C) 1. How often do you have a drink containing alcohol?: Monthly or less 2. How many drinks containing alcohol do you have on a typical day when you are drinking?: 1 or 2 3. How often do you have six or more drinks on one occasion?: Never Total Score: 1 TAE-7 AMB Questionnaire TAE-7 Date TAE - 7 assessed: 01/25/23 Source: Developed by Drs. Lavell Serrano, Margoth Winslow, Alonzo Veras and colleagues, with an educational min from [employer]. Review of Systems Const All systems reviewed & are unremarkable except as noted in HPI and below Reports no additional complaints Eyes Reports no additional complaints ENT Reports no additional complaints Card Reports no additional complaints Resp Reports no additional complaints GI Reports no additional complaints Reports no additional complaints Musc Reports no additional complaints Physical exam (Primary Care) Vital Signs: Last Vital Signs Pulse 62 11/01/23 12:52 BP 122/78 11/01/23 12:52 Pulse Ox 97 11/01/23 12:52 Oxygen Delivery Method Room Air 11/01/23 12:52 BMI result Body Mass Index 24.3 Tobacco/Smoking Status: Tobacco use Status Tobacco use date assessed 11/01/23 11/01/23 12:53 Patient Tobacco Use Status Former Tobacco user 11/01/23 12:53 e-Cigarette/Vaping Use Never Used 11/01/23 12:53 Thrive Assessment: Date of Thrive Assessment Date Thrive assessed 01/25/23 11/01/23 12:53 Const General: no acute distress HENMT Head: Yes normal to inspection Mouth: Normal oral and palatal mucosa present Throat: Yes posterior oropharynx normal Eyes General: appearance normal, both eyes and all related structures Neck Neck: Yes no lymphadenopathy and Yes supple Resp Effort & Inspection: normal respiratory effort Auscultation: clear to auscultation bilaterally Cardio Rhythm: regular rhythm Heart sounds: S1 normal heart sound present and S2 normal heart sound present GI Inspection: Yes normal to inspection Palpation (GI): Soft to palpation Percussion: Yes normal to percussion Auscultation: normal bowel sounds Assessment and Plan Assessment & Plan (1) Hyperlipidemia: Comment: f/u [place], Atorvastatin caused myalgia, controlled on Crestor and Zetia Code(s): E78.5 - Hyperlipidemia, unspecified Plan: Continue Crestor and Zetia add fish oil supplement, low-cholesterol diet regular physical activity discussed with the patient (2) AAA (abdominal aortic aneurysm): Comment: 3.4 cm, 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, 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, 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[place], [place] Code(s): I71.4 - Abdominal aortic aneurysm, without rupture Qualifiers: Abdominal aorta location: infrarenal aorta Presence of rupture: without rupture Qualified Code(s): I71.43 - Infrarenal abdominal aortic aneurysm, without rupture Plan: Follow-up with vascular surgeon (3) HTN (hypertension): Code(s): I10 - Essential (primary) hypertension Plan: Continue telmisartan (4) Osteoporosis: Comment: DEXA 12/21 T score -2.7, f/u with Endo, started on Ca and vit D 05/24 Code(s): M81.0 - Age-related osteoporosis without current pathological fracture Plan: Continue vitamin-D supplement and weight-bearing exercises were recommended. Patient will have a repeat DEXA (5) Hyperparathyroidism: Comment: Borderline elevated PTH level, patient is not interested in surgery, no nephrolithiasis Code(s): E21.3 - Hyperparathyroidism, unspecified Plan: Will monitor PTH level and free calcium Orders: Orders Comprehensive [place]. Panel Fast 7 Months E21.3 - Hyperparathyroidism, unspecified, E78.5 - Hyperlipidemia, unspecified, I10 - Essential (primary) hypertension, I71.43 - Infrarenal abdominal aortic aneurysm, without rupture, M81.0 - Age-related osteoporosis without current pathological fracture Lipid Panel 7 Months E21.3 - Hyperparathyroidism, unspecified, E78.5 - Hyperlipidemia, unspecified, I10 - Essential (primary) hypertension, I71.43 - Infrarenal abdominal aortic aneurysm, without rupture, M81.0 - Age-related osteoporosis without current pathological fracture Vitamin D 25-OH (D2 and D3) 7 Months E21.3 - Hyperparathyroidism, unspecified, E78.5 - Hyperlipidemia, unspecified, I10 - Essential (primary) hypertension, I71.43 - Infrarenal abdominal aortic aneurysm, without rupture, M81.0 - Age- related osteoporosis without current pathological fracture Complete Blood Count Auto Diff 7 Months E21.3 - Hyperparathyroidism, unspecified, E78.5 - Hyperlipidemia, unspecified, I10 - Essential (primary) hypertension, I71.43 - Infrarenal abdominal aortic aneurysm, without rupture, M81.0 - Age-related osteoporosis without current pathological fracture Parathyroid Hormone Intact 7 Months E21.3 - Hyperparathyroidism, unspecified, E78.5 - Hyperlipidemia, unspecified, I10 - Essential (primary) hypertension, I71.43 - Infrarenal abdominal aortic aneurysm, without rupture, M81.0 - Age- related osteoporosis without current pathological fracture Calcium, Ionized 7 Months E21.3 - Hyperparathyroidism, unspecified, E78.5 - Hyperlipidemia, unspecified, I10 - Essential (primary) hypertension, I71.43 - Infrarenal abdominal aortic aneurysm, without rupture, M81.0 - Age-related osteoporosis without current pathological fracture TSH reflex Free T4 7 Months E21.3 - Hyperparathyroidism, unspecified, E78.5 - Hyperlipidemia, unspecified, I10 - Essential (primary) hypertension, I71.43 - Infrarenal abdominal aortic aneurysm, without rupture, M81.0 - Age-related osteoporosis without current pathological fracture Medications: New cyclosporine 0.05% (Restasis MultiDose) 1 drp ophthalmic (eye) Q12H 5.5 mL 3RF Coding Level of Care Code Est Pt Level 4 (34472) Diagnoses Hyperlipidemia E78.5 Infrarenal abdominal aortic aneurysm (AAA) without rupture I71.43 Abdominal aorta location: infrarenal aorta Presence of rupture: without rupture HTN (hypertension) I10 Osteoporosis M81.0 Hyperparathyroidism E21.3
== END 2023-11-01 13:45 | disposition home or self-care (01) ==
PROVIDERS: PCP Internal Medicine; Visit Provider Internal Medicine
DX: E78.5 Hyperlipidemia, unspecified (principal); I71.43 Infrarenal abdominal aortic aneurysm, without rupture; E21.3 Hyperparathyroidism, unspecified; I10 Essential (primary) hypertension; M81.0 Age-related osteoporosis without current pathological fracture
CPT/HCPCS: 99214

== ENCOUNTER 2024-01-29 11:13 | Outpatient (REF) | payer MEDICARE, SELFPAY ==
--- NOTE | ~2024-01-29 | MM_ITS ---
EXAMINATION: BONE DENSITOMETRY CLINICAL INDICATION: Age-related osteoporosis without current pathological fracture. COMPARISON: Baseline BD dated 12/06/2021. TECHNIQUE: Using a [employer] DXA System (software version: 13.1) manufactured by [employer], dual-energy x-ray absorptiometry was performed of the left hip and left forearm radius 33% due to spinal fusion. The images are of good technical quality. Summary results are attached. FINDINGS: LEFT FEMUR, NECK: Current: BMD 0.775 g/cm2, Z-score 0.0, T-score -1.9, osteopenia. Baseline: BMD 0.750 g/cm2. LEFT FEMUR, TOTAL: Current: BMD 0.732 g/cm2, Z-score -0.5, T-score -2.2, osteopenia, 0.8% decrease from baseline (<5% change is not significant). Baseline: BMD 0.738 g/cm2. LEFT FOREARM RADIUS 33%: BMD 0.592 g/cm2, Z-score -0.8, T-score -3.2, osteoporosis, 6.9% decrease from baseline (<5% change is not significant). Baseline: BMD 0.636 g/cm2. IDENTIFIED RISK FACTORS: Family history (parent hip fracture), height loss, hyperparathyroid, menopause, osteoporosis, recurrent falls, secondary osteoporosis. HISTORY OF FRACTURE: None listed. MEDICATIONS: Calcium supplements or multivitamin, vitamin D. MM/XR DEXA appendicular skeleton IMPRESSION: 1. DIAGNOSIS: Osteoporosis based on the lowest T-score value of -3.2 in the forearm radius 33% applying World Health Organization criteria. 2. 10-YEAR FRACTURE RISK PREDICTION, FRAX: According to the guidelines, FRAX calculation should only be performed on patients in the osteopenia bone density category. Therefore, FRAX was not performed on this patient. 3. Treatment Recommendations: NOF guidelines recommend consideration for treatment in postmenopausal women and men age 50 and older presenting with the following: -A hip or vertebral (clinical or morphometric) fracture. -T-score less than or equal to -2.5 at the femoral neck or spine after appropriate evaluation to exclude secondary causes. -Low bone mass at the hip or spine and a 10-year fracture probability by FRAX of greater than or equal to 3% for hip fracture or greater than or equal to 20% for major osteoporotic fracture based on the [place] adapted WHO algorithm. 4. Other Recommendations: All treatment decisions require clinical judgment and consideration of individual patient factors, including patient preferences, comorbidities, previous drug use, risk factors not captured in the FRAX model (e.g. frailty, falls, vitamin D deficiency, increased bone turnover, interval significant decline in bone density) and possible under or overestimation of fracture risk by FRAX. Additional medical evaluation for secondary cause of low bone mineral density may be appropriate. FUTURE SCAN RECOMMENDATION: People with diagnosed cases of osteoporosis or at high risk for fracture should have regular bone mineral density tests. For patients eligible for Medicare, routine testing is allowed once every 2 years. The testing frequency can be increased to one year for patients who have rapidly progressing disease, those who are receiving or discontinuing medical therapy to restore bone mass, or have additional risk factors.
== END 2024-01-29 11:14 | disposition home or self-care (01) ==
LOC: HO.MAMMO 11:13
PROVIDERS: PCP Internal Medicine; Visit Provider Internal Medicine Endocrinology, Diabetes & Metabolism
DX: M81.0 Age-related osteoporosis without current pathological fracture (principal); E21.3 Hyperparathyroidism, unspecified
CPT/HCPCS: 77081

== ENCOUNTER 2024-02-26 10:37 | Outpatient (AMB) | payer MEDICARE, SELFPAY ==
[2024-02-26 10:41] VITALS: BP 120/76; PULSE 71; O2SAT 98; BMI 24.2
--- NOTE | 2024-02-26 10:41 | A.OFFPC_ITS ---
Vital Signs 02/26/24 10:41 Height 5 ft 8 in Weight 159 lb BMI 24.2 BP 120/76 Blood Pressure Location Lt brachial Position Sitting Pulse 71 Pulse Source Pulse Oximeter Pulse Oximetry (%) 98 Oxygen Delivery Method Room Air Intake Visit Reasons: ? sinus infection Intake Note: Pt is here today for a sick visit. Pt states that couple weeks ago she had a tooth ache and now she is having R nostril congestion and yellow mucus coming out. Allergies gluten Allergy (Verified 02/26/24 10:56) Gastrointestinal Upset Tobacco use date assessed: 02/26/24 Fall risk assessment: No Falls in past year Last assessed Fall Risk: 02/26/24 Dental Screening Dental Screen Date: 02/26/24 Did you have a dental visit in the last 12 months?: Yes Did you have a dental problem in the last 6 months where you did not have access to dental care?: No Was dental information given to patient?: Patient has dentist HPI ? sinus infection HPI Details Patient had an episode of 1 day of right facial pain a week ago and noticed yellow discharge from the right nostril. She denies fever chills cough allergy symptoms. Hypertension hyperlipidemia controlled on current medications [facility] Medical History (Updated 02/26/24 @ 14:15 by Della Ellison MD) HTN (hypertension) Axillary adenopathy Neuropathy, peripheral AAA (abdominal aortic aneurysm) Heart murmur TIA (transient ischemic attack) Hypercalcemia Cataracts, bilateral Osteopenia IFG (impaired fasting glucose) Hyperlipidemia Glaucoma GERD (gastroesophageal reflux disease) Celiac disease Surgical History History of knee replacement, total Hx of appendectomy Hx of colonoscopy History of esophagogastroduodenoscopy (EGD) H/O lumbosacral spine surgery Hx of cataract surgery H/O hernia repair Family History Mother Heart problem Father Heart problem Brother Substance use disorder Social History Housing: House Alcohol intake: current Alcohol intake frequency: a few times a week Alcohol type: wine Patient Tobacco Use Status: Former Tobacco user e-Cigarette/Vaping Use: Never Used service: No Current occupational status: retired Cognitive needs: No Hearing needs: No Vision needs: No Female Reproductive History Menstrual Age of Menarche: 13 Questionnaire PHQ-9 Over the last 2 weeks, how often have you been bothered by any of the following problems? 1. Little interest or pleasure in doing things: not at all 2. Feeling down, depressed, or hopeless: not at all 3. Trouble falling or staying asleep, or sleeping too much: several days 4. Feeling tired or having little energy: several days 5. Poor appetite or overeating: not at all 6. Feeling bad about yourself - or that you are a failure or have let yourself or your family down: not at all 7. Trouble concentrating on things, such as reading the newspaper or watching television: not at all 8. Moving or speaking so slowly that other people could have noticed. Or the opposite - being so fidgety or restless that you have been moving around a lot more than usual: not at all 9. Thoughts that you would be better off or of hurting yourself in some way: not at all Total score: 2 Depression Screening Interpretation: Negative Depression Screening Done: Yes Source: Developed by Drs. Lavell Serrano, Margoth Winslow, Alonzo Veras and colleagues, with an educational min from [employer]. Thrive Questionnaire Date Thrive assessed: 01/25/23 I am a: Patient What is your living situation today?: I have a steady place to live Within the past 12 months, did the food you bought not last and you didn't have the money to get more?: Never true Within the past 12 months, did you worry whether your food would run out before you got money to buy more?: Never true Do you have trouble paying for medicines?: No Do you have trouble getting transportation to medical appointments?: No Do you have trouble paying your heating and electricity bill?: No Do you have trouble taking care of your child, family member or friend?: No Do you have trouble with day-to-day activities such as bathing, preparing meals, shopping, managing finances, etc.?: No Are you currently unemployed and looking for a job?: No Are you interested in more education?: No Please select the resources that you would like help with: None Currently or been in a relationship where the following occur: No concerns reported THRIVE Score: 0 AUDIT C Alcohol Use Questionnaire (AUDIT-C) 1. How often do you have a drink containing alcohol?: 2-4 times a month 2. How many drinks containing alcohol do you have on a typical day when you are drinking?: 1 or 2 3. How often do you have six or more drinks on one occasion?: Never Total Score: 2 TAE-7 AMB Questionnaire TAE-7 Date TAE - 7 assessed: 01/25/23 Feeling nervous, anxious, or on edge: 0 = Not at all Not being able to stop or control worryin = Not at all Worrying too much about different things: 0 = Not at all Trouble relaxin = Not at all Being so restless that it is hard to sit still: 0 = Not at all Becoming easily annoyed or irritable: 0 = Not at all Feeling afraid as if something awful might happen: 0 = Not at all Total TAE-7 score (0-4 normal; 5-9 mild; 10-14 moderate; 15-21 severe): 0 Source: Developed by Drs. Lavell Serrano, Margoth Winslow, Alonzo Veras and colleagues, with an educational min from [employer]. Review of Systems Const All systems reviewed & are unremarkable except as noted in HPI and below Eyes Reports no additional complaints ENT Reports no additional complaints Card Reports no additional complaints Resp Reports no additional complaints GI Reports no additional complaints Reports no additional complaints Physical exam (Primary Care) Vital Signs: Last Vital Signs Pulse 71 02/26/24 10:41 BP 120/76 02/26/24 10:41 Pulse Ox 98 02/26/24 10:41 Oxygen Delivery Method Room Air 02/26/24 10:41 BMI result Body Mass Index 24.2 Tobacco/Smoking Status: Tobacco use Status Tobacco use date assessed 02/26/24 02/26/24 10:51 Patient Tobacco Use Status Former Tobacco user 02/26/24 10:58 e-Cigarette/Vaping Use Never Used 02/26/24 10:41 PHQ-9: PHQ-9 Score PHQ-9: Total score 2 02/26/24 10:41 Depression Screening Interpretation: Negative Thrive Assessment: Date of Thrive Assessment Date Thrive assessed 01/25/23 02/26/24 10:41 Currently or been in a relationship where the following occur: No concerns reported Const General: no acute distress [facility] Head: Yes normal to inspection Ears: hearing grossly normal bilaterally General nose exam: Normal nasal mucous membranes and turbinates present Face and sinus: Yes normal facial exam and Yes sinuses nontender Throat: Yes posterior oropharynx normal Eyes General: appearance normal, both eyes and all related structures Neck Neck: Yes supple Resp Effort & Inspection: normal respiratory effort Auscultation: clear to auscultation bilaterally Cardio Rhythm: regular rhythm Heart sounds: S1 normal heart sound present and S2 normal heart sound present GI Inspection: Yes normal to inspection Palpation (GI): Soft to palpation Assessment and Plan Assessment & Plan (1) Nasal discharge: Code(s): J34.89 - Other specified disorders of nose and nasal sinuses Plan: Supportive care discussed with the patient. She will try Flonase if the s ymptoms persist patient will be evaluated by ENT (2) HTN (hypertension): Code(s): I10 - Essential (primary) hypertension Plan: Continue current medication Coding Level of Care Code Est Pt Level 3 (24808) Diagnoses Nasal discharge J34.89 HTN (hypertension) I10
== END 2024-02-26 14:11 | disposition home or self-care (01) ==
PROVIDERS: PCP Internal Medicine; Visit Provider Internal Medicine
DX: J34.89 Other specified disorders of nose and nasal sinuses (principal); I10 Essential (primary) hypertension
CPT/HCPCS: 99213

== ENCOUNTER 2024-06-09 12:39 | Outpatient (REF) | payer MEDICARE, SELFPAY ==
[2024-06-09 17:09] LABS: Albumin Level 4.1 g/dL (3.5-5.0)
--- OUTSIDE RECORDS SUMMARY | 2024-06-11 15:30 | XMS_ITS | Continuity of Care Document ---
Author Organization [facility] Address [address] [place] [address] ve [address] [place] [address]- Care Team Providers Care Street Supervisor Name Role Phone Della Ellison MD Primary [id number] Date(s): 03/12/24 - 06/08/[address] [place], [place] [address] Attending Physician: Lisa Singleton MD Encounter Type: Pre Office Visit Allergies, Adverse Reactions, Alerts Substance Criticality Severity Reaction Reaction Severity Status Adhesive Bandage Act zion Glutens Active traMADol Nausea Active Medications acetaminophen 325 mg oral tablet 975 mg, 3, tablet, By Mouth, 3 times a day, PRN, for 14 days, Take scheduled 3 times per day for 3 days postoperatively, then transition to 3 times a day as needed., # 120 tablet, Refills 0, Tot. Refills 0, Acute 06/16/24 1:48:00 PM EST, for pain, 06/02/24 1:48:00 PM EST, Route to Pharmacy Electronically, [id number], Partial fill upon patient request if the prescription is for a schedule II opioid drug., 172, cm, 06/02/24 9:15:00 EST, Height, 73, kg, 06/02/24 9:15:00 EST, Dry Weight Start Date: 06/02/24 Stop Date: 06/16/24 Status: Ordered Quantity: 120.0 Unit: tablet Repeat number: 1 Biotin By Mouth, Daily, 0 Refills, Maintenance, 11/23/23 8:50:00 AM EDT, Partial fill upon patient request if the prescription is for a schedule II opioid drug. Start Date: 11/23/23 Status: Ordered Repeat number: 1 calcium (as carbonate) 500 mg oral tablet, chewable 1 tablet = 500 mg, Daily, 0 Refills, Maintenance, 04/17/24 4:20:00 PM EDT, Partial fill upon patient request if the prescription is for a schedule II opioid drug. Start Date: 04/17/24 Status: Ordered Repeat number: 1 calcium (as citrate)-vitamin D 315 mg-250 intl units oral tablet 1 tablet, By Mouth, 2 times a day, # 60 tablet, 0 Refills, Maintenance, 11/23/23 8:47:00 AM EDT, Tablet, Partial fill upon patient request if the prescription is for a schedule II opioid drug. Start Date: 11/23/23 Status: Ordered Quantity: 60.0 Unit: tablet Repeat number: 1 Eliquis 5 mg oral tablet 1 tablet = 5 mg, By Mouth, 2 times a day, 180 each, 0 Refill(s), TAKE 1 TABLET BY MOUTH TWICE DAILY, 0 Refills, 04/17/24 4:15:00 PM EDT, Partial fill upon patient request if the prescription is for aschedule II opioid drug. Start Date: 04/17/24 Status: Ordered Repeat number: 1 ezetimibe 10 mg oral tablet 1 tablet = 10 mg, By Mouth, Daily in AM, 0 Refills, Maintenance, 11/23/23 8:45:00 AM EDT, Partial fill upon patient request if the prescription is for a schedule II opioid drug. Start Date: 11/23/23 Status: Ordered Repeat number: 1 famotidine 40 mg oral tablet 1 tablet = 40 mg, By Mouth, Daily at bedtime, 0 Refills, Maintenance, 11/23/23 8:46:00 AM EDT, Partial fill upon patient request if the prescription is for a schedule II opioid drug. Start Date: 11/23/23 Status: Ordered Repeat number: 1 Gabapentin = 300 mg, By Mouth, Daily at bedtime, 0 Refills, Maintenance, 05/27/24 3:24:00 PM EST, Partial fillupon patient request if the prescription is for a schedule II opioid drug. Start Date: 05/27/24 Status: Ordered Repeat number: 1 Magnesium Chloride 0 Refills, Maintenance, 11/23/23 8:49:00 AM EDT, Partial fill upon patient request if the prescription is for a schedule II opioid drug. Start Date: 11/23/23 Status: Ordered Repeat number: 1 Metoprolol Succinate ER 25 mg oral tablet, extended release 90 each, 0 Refill(s), TAKE 1 TABLET BY MOUTH IN THE EVENING, Refills 0, 04/17/24 4:15:00 PM EDT, Partial fill upon patient request if the prescription is for a schedule II opioid drug. Start Date: 04/17/24 Status: Ordered Repeat number: 1 Multivitamin 0 Refills, Maintenance, 11/23/23 8:48:00 AM EDT, Partial fill upon patient request if the prescription is for a schedule II opioid drug. Start Date: 11/23/23 Status: Ordered Repeat number: 1 Restasis 0.05% ophthalmic emulsion 1 drops, Eyes, Both, 2 times a day, 0 Refills, Maintenance, 11/23/23 8:45:00 AM EDT, Partial fill upon patient request if the prescription is for a schedule II opioid drug. Start Date: 11/23/23 Status: Ordered Repeat number: 1 rosuvastatin 40 mg oral tablet 1 tablet = 40 mg, By Mouth, Daily in AM, 0 Refills, Maintenance, 11/23/23 8:46:00 AM EDT, Partial fill upon patient request if the prescription is for a schedule II opioid drug. Start Date: 11/23/23 Status: Ordered Repeat number: 1 telmisartan 20 mg oral tablet 1 tablet = 20 mg, By Mouth, Daily at bedtime, 0 Refills, Maintenance, 11/23/23 8:45:00 AM EDT, Partial fill upon patient request if the prescription is for a schedule II opioid drug. Start Date: 11/23/23 Status: Ordered Repeat number: 1 traZODone 50 mg oral tablet 25 mg, 0.5, tablet, By Mouth, Daily at bedtime, Refills 0, Maintenance, 11/23/23 8:45:00 AM EDT, Partial fill upon patient request if the prescription is for a schedule II opioid drug. Start Date: 11/23/23 Status: Ordered Repeat number: 1 Problem List Condition Confirmation Course Effective Dates Status Health Status Informant Abdominal aortic aneurysm Confirmed Active Atrial fibrillation Confirmed Active Hypertension Confirmed Active Chronic dryness of both eyes Confirmed Active Acid reflux disease Confirmed Active Heart murmur Confirmed Active History of TIA (transient ischemic attack) Confirmed Active Hyperlipidemia Confirmed Active Hyperparathyroidism Confirmed Active Anticoagulant long-term use Confirmed Active Osteoporosis, postmenopausal Confirmed Active Social History Social History Type Response Smoking Status Former smoker, quit more than 30 days ago entered on: 05/29/23 Sex Sex Representation Female (finding) Patient Care team information Care Team Personnel Name: Della Ellison MD Position: S Physician - Primary Care Member Role: PCP Address: [facility] [address] Telecom: Care Team Related Persons Name: JOSE KONG Name: MATTHIEU GOMEZ Insurance Providers Guarantor name: MORGAN BEAVER Health Plan Information #: 1 Payer: NA Member Number: [id number] Policy Number: NA Group Number: [employer] Health Plan Information #: 2 Payer: NA Member Number: [id number] Policy Number: NA Group Number: NA
--- OUTSIDE RECORDS SUMMARY | 2024-06-11 15:30 | XMS_ITS | Continuity of Care Document ---
Author Organization [facility] ter Address [address] [place] [address]- Care Team Providers Care Low Altitude Air Defense Officer Name Role Phone Della Ellison MD Primary Care Physician [phone] [id number] Date(s): 06/02/24 - 06/02/[address] [address] Discharge Disposition: A-D/C Home Attending Physician: Lisa Singleton MD Admitting Physician: Lisa Singleton MD Referring Physician: Lisa Singleton MD Encounter Type: Disch Daystay Allergies, Adverse Reactions, Alerts Substance Criticality Severity [...] 1:48:00 PM EST, Route to Pharmacy Electronically, [id number], Partial fill upon patient request if the prescription is for a schedule II opioid drug., 172, cm, 06/02/24 9:15:00 EST, Height, 73, kg, 06/02/24 9:15:00 EST, Dry Weight Start Date: 06/02/24 Stop Date: 06/16/24 Status: Ordered Quantity: 120.0 Unit: tablet Repeat number: 1 Acetaminophen IVPB 1,000 mg, Injection, IVPB, Once, In PACU ONLY. Infuse over 15 minutes., PRN for Pain , Mild, Routine, 06/02/24 11:19:00 AM EST Notes: strict NPO patients onlyDoses <1000mg should be routed to [facility] by changing the dispense category Start Date: 06/02/24 Stop Date: 06/02/24 Status: Completed Repeat number: 1 Biotin By Mouth, Daily, [...] Date: 11/23/23 Status: Ordered Repeat number: 1 oxyCODONE 5 mg oral tablet 5 mg, 1, tablet, By Mouth, Every 6 hours, PRN, for 5 days, # 5 tablet, Refills 0, Tot. Refills 0, Acute 06/07/24 7:48:00 PM EST, as needed for pain, 06/02/24 7:48:00 PM EST, Route to Pharmacy Electronically, [id number], Partial fill upon patient request if the prescription is for a schedule II opioid drug., 172, cm, 06/02/24 9:15:00 EST, Height, 73, kg, 06/02/24 9:15:00 EST, Dry Weight Start Date: 06/02/24 Stop Date: 06/07/24 Status: Ordered Quantity: 5.0 Unit: tablet Repeat number: 1 Restasis 0.05% ophthalmic emulsion [...] use Confirmed Active Osteoporosis, postmenopausal Confirmed Active Procedures Procedure Date Related Diagnosis Body Site Status Subtotal Parathyroidectomy 06/02/24 Completed Vital Signs Most recent to oldest [Reference Range]: 1 2 3 Height 172 cm (06/02/24 9:15 AM) 172 cm (05/27/24 3:39 PM) Weight 73 kg (06/02/24 9:15 AM) 72.8 kg (05/27/24 3:39 PM) Oxygen Saturation [94-100 %] 95 % (06/02/24 1:53 PM) 95 % (06/02/24 1:41 PM) 94 % (06/02/24 1:29 PM) Pulse Rate [55-90 bpm] 53 bpm *L* (06/02/24 9:15 AM) Body Mass Index [18.5-24.99 kg/m2] 24.68 kg/m2 (06/02/24 9:15 AM) 24.61 kg/m2 (05/27/24 3:39 PM) Blood Pressure [90-138/55-84 mm Hg] 135/72mm Hg (06/02/24 1:45 PM) 133/67mm Hg (06/02/24 1:30 PM) 132/67mm Hg (06/02/24 1:15 PM) Respiratory Rate [16-30 br/min] 17 br/min (06/02/24 1:51 PM) 17 br/min (06/02/24 1:41 PM) 11 br/min *L* (06/02/24 1:29 PM) Temperature [96.8-100.4 DegF] 97.8 DegF (06/02/24 1:45 PM) 97.9 DegF (06/02/24 12:30 PM) 97.6 DegF (06/02/24 9:15 AM) Mode of Delivery (Oxygen) Room air (06/02/24 1:53 PM) Room air (06/02/24 1:30 PM) Room air (06/02/24 1:15 PM) Blood pressure sites Arm, left (06/02/24 12:30 PM) Arm, left (06/02/24 9:15 AM) Temperature Route Temporal (06/02/24 1:45 PM) Temporal (06/02/24 12:30 PM) Temporal (06/02/24 9:15 AM) Dry Weight 73 kg (06/02/24 9:15 AM) 72.8 kg (05/27/24 3:39 PM) Weight Obtained Via Standing scale (06/02/24 9:15 AM) per 05/19 med consult (05/27/24 3:39 PM) Dry Weight Obtained Via Standing scale (06/02/24 9:15 AM) Social History Social History Type Response Smoking Status Former smoker, quit more than 30 days ago entered on: 05/29/23 Sex Sex Representation Female (finding) Note * Micaela Vasquez RN: PERFORM Event Display: Discharge/Transfer Note Hospital Authored Date: [id number] Nursing Discharge Note Entered On: 06/02/2024 15:49 EST Performed On: 06/02/2024 15:49 EST by Micaela Vasquez RN Nursing Discharge Note 2 Discharge Time : 06/02/2024 15:49 EST Discharge Level of Care at Discharge : Home/Long-Term/Foster Care Patient Left Unit Via : Wheelchair Patient Accompanied Off Unit with : Responsible adult DC Instructions Provided & Signed by Pt : Yes Patient Understands D/C Instructions : Yes Verbalized Understanding of D/C Plan By : Family, Patient Patient Instructions Discharge Signed : Yes Did Pt have Specialty Bed or Wound Vac : No Micaela Vasquez RN - 06/02/2024 15:49 EST * Micaela Vasquez RN: PERFORM Event Display: Patient Education/Instruction Authored Date: Surgery Adult Discharge Instructions [place] [id number] Name: MORGAN CHRISTIAN : 1945?? Visit: 06/02/2024 08:33?? Current Date: 06/02/2024 14:11 ?? Account: [id number]?? Surgery Discharge Instructions We would like to thank you for allowing us to assist you with your healthcare needs. The following includes patient education materials and information regarding your injury/illness. Our entire staffstrives to provide an excellent experience for our patients and their families. PLEASE ENSURE YOU FOLLOW-UP PER THE INSTRUCTIONS BELOW! ?? YOUR OPINION IS IMPORTANT TO US! Please complete the survey you may receive by mail or email. Your feedback will be used to make improvements to the healthcare experiences of our patients and their families. Surveys are administered by [employer] ?? If further treatment with your primary care physician or another doctor is recommended, it is important for you to keep the appointment. Call your primary care physician or return to the Emergency Department immediately if your condition worsens, fails to improve, or new symptoms develop. If you need to find a doctor, you can call [facility] for a referral at [phone] or toll free at [phone]) or log in to [email or web address].. ?? [facility], in keeping with [facility] guidance, no longer requires face masks for staff, patientsor visitors in most situations. Similiar to time spent indoors at other locations, there is the chance that you were exposed to repiratory viruses during your time with us (such as flu or COVID-19). If you develop symptoms concerning for a viral respiratory infection, please seek testing (and treatment if indicated) from your medical provider or home test kit. ?? You can view and manage your care through the patient portal or by using a health care renetta of your choosing. [employer] is a website that allows you to securely view your medical information including your hospital discharge summary, office visit summaries, medications and follow-up visits. You can also request appointments, renew medications, and request access to your medical information using a health care renetta of your choosing, or just ask a question. You are entitled to know the individuals who participated in your treatment. This information is available within your medical record and will be provided upon your request. You can enroll at [email or web address] or register d uring your next office visit. You have been discharged from [facility], Patient Care Unit: [facility]??. If you have any questions regarding these instructions after you leave, please call us and we will be happy to assist you. [facility] Your Care Team Attending Physician Areli PERLA, Lisa?? Discharging Providers [place] PERLA, Nolan Felton Reason for Admission PRIMARY HYPERPARATHYROIDISM CS DS Primary Care Provider Della Ellison MD? Advance Directive Health Care Proxy on File No What to do next Instructions From Your Doctor ?? Orders?? Daystay Protocol, ??When Unit Discharge Criteria Met, ??needs neck hematoma check at 4PM prior to discharge, ??06/02/24 13:12:00 EST?? Instructions from your Care Team Please see attached instructions from your provider.? You last received??Tylenol at 12:30pm, you can next take Tylenol at 6:30pm.?? Scheduled Follow-Up Appointments Sunday 9:40 AM EST ?? With: Chidi Child Where: [facility] General Surgery [address] [place] [address] Drive [address] [place] [address]- Status: Pending You Need to Schedule the Following Appointments Follow Up with??Lisa Singleton Where: [address] [place] [address], [address] [place] [address]- Business (1) Follow Up with??Della Ellison Where: [address] [place] [address]- Business (1) Discharge Medications MORGAN CHRISTIAN :1945 Visit Date:06/02/2024 Medications: Please continue your medications until treatment is completed or stopped by your provider. You may resume your daily prescription medications. Discuss any questions related to medications with your provider. What How Much When Instructions Next Dose New Acetaminophen (acetaminophen 325 mg oral tablet) 3 tab(s) Oral 3 times a day as needed for for pain Duration: 14 Days Take scheduled 3 times per day for 3 days postoperatively, then transition to 3 times a day as needed. ?? Pickup at [facility]278 New Oxycodone (oxyCODONE 5 mg oral tablet) 1 tab(s) Oral Every 6 hours as needed for as needed for pain Duration: 5 Days Pickup at [place] [id number] Unchanged apixaban (Eliquis 5 mg oral tablet) 1 tab(s) Oral Twice a day 180 each, 0 Refill(s), TAKE 1 TABLET BY MOUTH TWICE DAILY ?? Unchanged Biotin Oral Daily Unchanged Calcium And Vitamin D Combination (calcium (as citrate)-vitamin D 315 mg-250 intl units oral tablet) 1 tab(s) Oral Twice a day Unchanged Calcium Carbonate (calcium (as carbonate) 500 mg oral tablet, chewable) 1 tab(s) Daily Unchanged Cyclosporine Ophthalmic (Restasis 0.05% ophthalmic emulsion) 1 Drops Both eyes Twice a day Unchanged Ezetimibe (ezetimibe 10 mg oral tablet) 1 tab(s) Oral Daily in the morning Unchanged Famotidine (famotidine 40 mg oral tablet) 1 tab(s) Oral Daily at Bedtime Unchanged Gabapentin 300 Milligram Oral Daily at Bedtime Unchanged Magnesium Chloride Unchanged Metoprolol (Metoprolol Succinate ER 25 mg oral tablet, extended release) 90 each, 0 Refill(s), TAKE 1 TABLET BY MOUTH IN THE EVENING ?? Unchanged Multivitamin Unchanged Rosuvastatin (rosuvastatin 40 mg oral tablet) 1 tab(s) Oral Daily in the morning Unchanged Telmisartan (telmisartan 20 mg oral tablet) 1 tab(s) Oral Daily at Bedtime Unchanged Trazodone (traZODone 50 mg oral tablet) 0.5 tab(s) Oral Daily at Bedtime Pharmacy Information [facility]: [address] [place] [phone] Allergies (NKA means No Known Allergies) Adhesive Bandage Glutens traMADol??(Nausea) Education Materials Below is the list of Educational Leaflet Providered with your Discharge Instructions. [employer] Patient Education - Surgery Medical Daystay Surgical Overnight Discharge Instructions?? Valuables and Belongings I fully understand and agree that [facility] accepts no responsibility for all my personal property including clothing, toilet articles, radios, jewelry, dentures, hearing aids, rings, money, or any other property that is in my possession or is brought to me after admission. I understand certain valuables may be placed in a hospital safe for a short period of time. I understand that the hospital is not liable for loss or damage due to accident, fire, or other natural occurrence while said property is in the safe. I accept full responsibility for any personal property that I keep with me, and will not hold the hospital responsible in case of loss or disappearance. I acknowledge that i have been encouraged to send valuables and belongings home. ?? Review of Valuable and Belonging List: With patient Date for Pt to Sign Valuables/Belongings: 06/02/24 09:15:00 ?? Valuables & Belongings ?? Clothes Electronic devices Jewelry Monetary Items Personal devices Miscellaneous Medications (Valuables) Valuables at Bedside Coat, Pants, Shirt, Shoes ? Valuables Sent Home ? Valuables Sent to Security ? Valuables Sent to Locker ? Other Discharge Information ? Pulmonary Rehab Status?? Pulmonary Rehab Discharge Status?? Respiratory Rate: 17 br/min ? Common Emergency Awareness Tips IS IT A STROKE? Act FAST and Check for these signs: FACE Does the face look uneven? ARM Does one arm drift down? SPEECH Does their speech sound strange? TIME Call at any sign of stroke ?? Heart Attack Signs Chest discomfort: Most heart attacks involve discomfort in the center of the chest and lasts more than a few minutes, or goes away and comes back. It can feel like uncomfortable pressure, squeezing, fullness or pain. Discomfort in upper body: Symptoms can include pain or discomfort in one or both arms, back, neck, jaw or stomach. Shortness of breath: With or without discomfort. Other signs: Breaking out in a cold sweat, nausea, or lightheaded. Remember, MINUTES DO MATTER. If you experience any of these heart attack warning signs, call to get immediate medical attention! ?? Smoking can increase your chances of developing chronic health problems and can cause harmful effects to other family members in your house. If you smoke, you are strongly encouraged to quit. Please call [facility] at [phone] or [phone] ([phone]) or log in to [email or web address] for referrals to smoking cessation programs. ?? The National Suicide Prevention Hotline is available 22/01 if you or someone you know needs to find a reason to keep living. By calling 6-044-805-N[facility]ing Home Quality (9836) you'll be connected to a skilled, trained counselor at a crisis center in your area. SURGERY DISCHARGE INSTRUCTIONS SIGNATURE PAGE MORGAN CHRISTIAN Location:[facility] Registration Date and Time:06/02/2024 08:33 EST Primary Care Physician: Della Ellison MD, Attending Physician: Lisa Singleton MD, I MORGAN CHRISTIAN, have received the above patient education materials/instructions and have verbalized understanding. If ambulance or transport services are being used I further acknowledge being given a choice of service. ?? If you need to contact me, please call me at this number: . Patient/Charter School Executive Director Name: Patient/Charter School Executive Director Signature: Relationship to Patient: Witness Name/Signature: Date: * Micaela Vasquez RN: PERFORM, SIGN, VERIFY Event Display: Patient Education Handout Authored Date: * Micaela Vasquez RN: PERFORM Event Display: Patient Education Leaflets Authored Date: Surgery Medical Daystay Surgical Overnight Discharge Instructions ?? 295 Medical Daystay/Surgical Overnight Discharge Instructions ? Since your coordination and judgment may be altered by medication and/or anesthesia, a responsible adult must drive you home from the hospital. ? If you have received medication for pain or sedation while under our care, you should not drive, operate machinery, drink alcohol, or sign any legal documents for 24 hours.?? You should have someone with you at home tonight. ? Remain at home the day of discharge.?? You may be up and about unless otherwise instructed by your physician. ? You may resume your daily prescription medication schedule.?? Any depressant medication should be avoided for 24 hours unless otherwise instructed by your surgeon or anesthesiologist. ? Call your physician for a follow-up appointment.? If you experience unusual or severe pain not relied by your pain medication, excessive bleedingor drainage, persistent nausea and vomiting, excessive swelling or redness, foul odor from incisionsite or fever over 100.6F, you need to call your physician. ? A follow-up phone call by a nurse will be made the day after your procedure.?? If you have stayed with us over night, you will not be receiving a follow-up phone call. ? Nausea and vomiting are a common side effect of prescription pain medication.?? We recommend that pills are not taken on an empty stomach.?? While taking any prescription pain medication you should not drive or drink alcohol. ? Patient Care team information Care Team Personnel Name: Della Ellison MD Position: [facility] Physician - Primary Care Member Role: PCP Address: [address] [place] [address]- Telecom: Care Team Related Persons Name: JOSE KONG Name: MATTHIEU GOMEZ Insurance Providers Guarantor name: [place] [facility] Information #: 1 Payer: NA Member Number: [id number] Policy Number: NA Group Number: [id number] Health Plan Information #: 2 Payer: NA Member Number: [id number] Policy Number: NA Group Number: NA
--- OUTSIDE RECORDS SUMMARY | 2024-06-11 15:30 | XMS_ITS | Continuity of Care Document ---
Author Organization [facility] Address [address] [place] [address]- Care Team Providers Care Diagram Clerk Name Role Phone Della Ellison MD Primary Care Physician [id number]): [facility]19/[facility] - 05/26/24 [facility] [address] [place], [place] [address] Attending Physician: Devon Arriaga MD Referring Physician: Lisa Singleton MD Encounter Type: Office Visit Allergies, Adverse Reactions, Alerts Substance Criticality Severity Reaction Reaction Severity Status Adhesive Bandage Act zion Glutens Active traMADol Nausea Active Medications Biotin By Mouth, Daily, 0 Refills, Maintenance, [...] number: 1 Eliquis 5 mg oral tablet 180 each, 0 Refill(s), TAKE 1 TABLET BY MOUTH TWICE DAILY, 0 Refills, 04/17/24 4:15:00 PM EDT, Partial fill upon patient request if the prescription is for a schedule II opioid drug. Start Date: 04/17/24 Status: Ordered Repeat number: 1 ezetimibe 10 mg oral tablet 0 Refills, Maintenance, 11/23/23 8:45:00 AM EDT, Partial fill upon patient request if the prescription is for a schedule II opioid drug. Start Date: 11/23/23 Status: Ordered Repeat number: 1 famotidine 40 mg oral tablet 0 Refills, Maintenance, 11/23/23 8:46:00 AM EDT, Partial fill upon patient request if the prescription is for a schedule II opioid drug. Start Date: 11/23/23 Status: Ordered Repeat number: 1 Magnesium Chloride [...] Repeat number: 1 Restasis 0.05% ophthalmic emulsion 0 Refills, Maintenance, 11/23/23 8:45:00 AM EDT, Partial fill upon patient request if the prescription is for a schedule II opioid drug. Start Date: 11/23/23 Status: Ordered Repeat number: 1 rosuvastatin 40 mg oral tablet 0 Refills, Maintenance, 11/23/23 8:46:00 AM EDT, Partial fill upon patient request if the prescription is for a schedule II opioid drug. Start Date: 11/23/23 Status: Ordered Repeat number: 1 telmisartan 20 mg oral tablet 0 Refills, Maintenance, 11/23/23 8:45:00 AM EDT, Partial fill upon patient request if the prescription is for a schedule II opioid drug. Start Date: 11/23/23 Status: Ordered Repeat number: 1 traZODone 50 mg oral tablet Refills 0, Maintenance, 11/23/23 8:45:00 AM EDT, Partial fill upon patient request if the prescription is for a schedule II opioid drug. Start Date: 11/23/23 Status: Ordered Repeat number: 1 Problem List Condition Confirmation Course Effective Dates Status H ealth Status Informant Osteoporosis, postmenopausal Confirmed Active Vital Signs Most recent to oldest [Reference Range]: 1 Height 172 cm (05/19/24 11:39 AM) Weight 72.8 kg (05/19/24 11:39 AM) Oxygen Saturation [94-100 %] 99 % (05/19/24 11:39 AM) Pulse Rate [55-90 bpm] 60 bpm (05/19/24 11:39 AM) Body Mass Index [18.5-24.99 kg/m2] 24.61 kg/m2 (05/19/24 11:39 AM) Blood Pressure [90-138/55-84 mm Hg] 123/ 68mm Hg (05/19/24 11:39 AM) Respiratory Rate [16-30 br/min] 16 br/mi n (05/19/24 11:39 AM) Mode of Delivery (Oxygen) Nasal cannula (05/19/24 11:39 AM) Blood pressure sites Arm, right (05/19/24 11:39 AM) Weight Obtained Via Standing scale (05/19/24 11:39 AM) Social History Social History Type Response Smoking Status Former smoker, quit more than 30 days ago entered on: 05/29/23 Sex Sex Representation Female (finding) EKG study * Event Display: ECG 12-Lead Authored Date: Please click on pdf link to open report * Event Display: ECG 12-Lead Authored Date: Ventricular Rate: 59 BPM Atrial Rate: 59 BPM P-R Interval: 172 ms QRS Duration: 88 ms Q-T Interval: 394 ms QTC Calculation(Bazett): 390 ms P Bethany: 67 degrees R Bethany: 15 degrees T Bethany: 49 degrees Sinus bradycardia Cannot rule out Anterior infarct , age undetermined Abnormal ECG When compared with ECG of 08-DEC-2003 16:02, No significant change was found Confirmed by COLTON BRYANT MD ([id number]) on 05/19/2024 3:34:58 PM [place]: COLTON BRYANT MD Patient Care team information Care Team Personnel Name: Della Ellison MD Position: [facility] Physician - Primary Care Member Role: PCP Address: [address] [place] [address] Telecom: Care Team Related Persons Name: JOSE KONG Name: MATTHIEU GOMEZ Insurance Providers Guarantor name: [facility] Information #: 1 Payer: NA Member Number: [id number] Policy Number: NA Group Number: NA Health Plan Information #: 2 Payer: NA Member Number: [id number] Policy Number: NA Group Number: NA
--- OUTSIDE RECORDS SUMMARY | 2024-06-11 15:30 | XMS_ITS | Continuity of Care Document ---
Author Organization [facility] Address [address] [place] [address] [address] [place] [address]- Care Team Providers Care Retanned Leather Roller Name Role Phone Della Ellison MD Primary Care Physician Encounter [facility] Date(s): 04/17/24 - 05/17/[address] [place] [address]- Attending Physician: Marilee Do Admitting Physician: AdmtrMarilee Referring Physician: Admtr, Ar8 Encounter Type: Triage Allergies, Adverse Reactions, Alerts Substance Criticality Severity Reaction Reaction Severity Status Glutens Active traMADol Nausea Active Medications Biotin [...] ealth Status Informant Osteoporosis, postmenopausal Confirmed Active Social History Social History Type Response Smoking Status Former smoker, quit more than 30 days ago entered on: 05/29/23 Sex Sex Representation Female (finding) Patient Care team information Care Team Personnel Name: Della Ellison MD Position: [facility] Physician - Primary Care Member Role: PCP Address: [address] [place] [address] Telecom: Care Team Related Persons Name: JOSE KONG Name: MATTHIEU GOMEZ Insurance Providers Guarantor name: [facility]GAN [place] Health Plan Information #: 1 Payer: NA Member Number: NA Policy Number: NA Group Number: NA
--- OUTSIDE RECORDS SUMMARY | 2024-06-11 15:30 | XMS_ITS ---
Author Name [facility] Organization Unknown History of Medication Use Medication Directions Dispensed Refills Start Date End Date Stat ezetimibe (ZeTIA) 10 MG tablet Take 1 tablet (10 mg total) by mouth daily. 05/22/2024 07/01/9999 active apixaban (ELIQUIS) 5 MG tablet Take 1 tablet (5 mg total) by mouth 2 (two) times a day. 04/02/2024 active metoPROLOL SUCCINATE (TOPROL-XL) 25 MG 24 hr tablet Take 1 tablet (25 mg total) by mouth every evening. 04/02/2024 aborted rosuvastatin (CRESTOR) 40 MG tablet Take 1 tablet (40 mg total) by mouth daily. 11/02/2023 active celeCOXIB (CeleBREX) 200 MG capsule Take 1 capsule (200 mg total) by mouth daily. 06/13/2022 active telmisartan (MICARDIS) 20 MG tablet TAKE 1 TABLET BY MOUTH ONCE DAILY AT BEDTIME 06/13/2022 active atorvastatin (LIPITOR) 40 MG tablet Take 1 tablet by mouth once daily 06/13/2022 active Flaxseed, Linseed, (Flax Seed Oil) 1000 MG Cap Take 1 capsule by mouth daily. 06/13/2022 active traZODone (DESYREL) 50 MG tablet Take 1 tablet (50 mg total) by mouth nightly. 06/13/2022 active gabapentin (NEURONTIN) 300 MG capsule Take 1 capsule (300 mg total) by mouth daily. 06/13/2022 active ezetimibe (ZeTIA) 10 MG tablet Take 1 tablet by mouth once daily 06/13/2022 active telmisartan (MICARDIS) 20 MG tablet Take 1 tablet (20 mg total) by mouth nightly. 06/13/2022 aborted TURMERIC PO Take 1 tablet by mouth daily. 06/13/2022 active aspirin enteric coated (ECOTRIN LOW STRENGTH) 81 MG EC tablet Take 1 tablet (81 mg total) by mouth daily. 06/13/2022 active latanoprost (XALATAN) 0.005 % ophthalmic solution Administer 1 drop to both eyes daily. daily 06/13/2022 active Problems Problem Status Onset Date Problem Type Date of Resoluti on Source Carotid artery stenosis, asymptomatic, bilateral active 2021-03-21 ProblemAct [facility] T AAA (abdominal aortic aneurysm) without rupture active 2021-03-21 ProblemAct [facility] PAF (paroxysmal atrial fibrillation) active 2024-03-25 ProblemAct [facility] Idiopathic peripheral neuropathy active 2021-06-17 ProblemAct [facility] Diverticulosis of sigmoid colon active 2022-11-28 ProblemAct [facility] Dupuytren's contracture of right hand active 2022-11-28 ProblemAct [facility] Essential hypertension active 2021-03-21 ProblemAct [facility] Farooq's esophagus active 2022-11-28 ProblemAct [facility] Mixed hyperlipidemia active 2021-03-21 ProblemAct [facility] Asymptomatic varicose veins of both lower extremities active 2021-03-21 ProblemAct [facility] Status post placement of implantable loop recorder active 2021-06-02 ProblemAct [facility] Celiac disease active 2021-06-[address] Hyperparathyroidism active 2022-11-28 ProblemAct [facility] History of amaurosis fugax active 2021-03-21 ProblemAct [facility] Migraine without aura active 2021-03-21 ProblemAct [facility] Hiatal hernia active 2021-06-17 ProblemAct [facility] T Ex-smoker active 2019-02-05 ProblemAct [facility] Osteopenia active 2022-11-28 ProblemAct [facility] GERD (gastroesophageal reflux disease) active 2021-06-17 ProblemAct [facility]
--- OUTSIDE RECORDS SUMMARY | 2024-06-11 15:30 | XMS_ITS | Patient Health Record ---
Author Organization [facility] Address [address] [place] [address] Care Team Providers Care Hair Worker Name Role Phone Della Ellison MD Primary Care Provider Lavell Landeros [phone] ALLERGIES Allergen (clinical drug ingredient) Drug/Non Drug Allergy documented on EMR Reaction Allergy Type Onset Date Status Gluten gluten (uncoded) Unknown Allergy Act zion REASON FOR REFERRAL No Information MEDICATIONS Medication SIG (Take, Route, Frequency, Duration) Notes Start Date End Date Status Flaxseed Oil 1000 MG as directed Orally Active B Complex - as directed Orally Active Biotin 5000 Active Baby Aspirin Active Omeprazole 20 MG 1 capsule Orally Onc e a day for 90 days 11/07/2016 Not-Taking CeleBREX Active traZODone HCl 50 MG 1 tablet at bedtime as needed Orally Once a day for 30 day(s) Active Telmisartan Active Multi Vitamin/Minerals Active Turmeric 800 mg 1 tablet Orally once a day Active Atorvastatin Calcium Active Gabapentin 300 MG 1 tablet Orally twic e a day Active IMMUNIZATIONS Vaccine Route Administration Date Status Comme nts Influenza Unknown 03/02/2020 Administered SOCIAL HISTORY Sex Assigned At : Social History Observation Description Sex Assigned At Unknown PROBLEMS Problem Type ICD Code Onset Dates Problem Status W/U Status Risk SNOMED Code Notes Problem Epigastric abdominal pain (R10.13) Active confirmed 51362570 Problem Encounter for screening for malignant neoplasm of colon (Z12.11) Active confirmed 978102046 Problem Celiac disease (K90.0) Active confirmed 646598794 Problem Gastroesophageal reflux disease without esophagitis (K21.9) Active confirmed 070859825 Problem Barretts esophagus without dysplasia (K22.70) Active confirmed 006226848 Problem Gastroesophageal reflux (K21.9) Active confirmed Esophageal reflux finding (500695314) Problem Diverticulosis of sigmoid colon (K57.30) Active confirmed Diverticulosis of sigmoid colon (305620847) PLAN OF TREATMENT Pending Test Test Name Order Date LIVER PROFILE 05/28/2013 CBC w DIFF 05/28/2013 CELIAC PANEL #10 05/28/2013 ENDOMYSIAL IGA 05/07/2012 TRANSGLUTAMINASE AB IGA 05/07/2012 TRANSGLUTAMINASE AB IGG 05/07/2012 Pathology 03/16/2021 Future Test Test Name Order Date UPPER GI ENDOSCOPY 07/03/2013 UPPER GI ENDOSCOPY 11/07/2016 UPPER GI ENDOSCOPY 02/23/2021 COLONOSCOPY 02/23/2021 Insurance Providers Payer Name Payer Address Payer Phone Subscriber Number Group Number Insured Name Patient Relationship to Insured Coverage Start Date Coverage End Date [facility] [address] [place], [place] [id number] MORGAN CHRISTIAN Self - patient is the insured MEDICARE OF [place] [address] [facility] [place] [address] [id number] MORGAN CHRISTIAN Self - patient is the insured MEDICAL (GENERAL) HISTORY Medical History History ICD Code CELIAC DISEASE-Dx'd in 2009- -neg labs in 06/2013; normal duodenal biopsies in 2016 COLONOSCOPY WAS NEGATIVE IN January and in 2002 JUDD'S ESOPHAGUS-Dx'd in 2009 ARTHRITIS/Fibromyalgia Denies [place],DM,CVA,Lung disease,renal dise ase Hypercholesterolemia Upper endoscopy 07-14-13--sma ll hiatal hernia, Judd's esophagus without dysplasia, normal duodenal biopsies without any signs of active celiac disease, mild gastritis without H. pylori Hyperparathyroidism--no surgery EGD in 2017--small area of B arrett's, no dysplasia, no esophagitis, small hiatal hernia HTN TIA with temporary loss of vision in rig eye Surgical History Surgery Date(Month/Year) ABDOMINAL HERNIA SURGERY APPENDECTOMY Bilateral knee replacements-2001 [facility] Tonsillectomy DUPUYTREN'S CONTRACTURE 2013 4 back surgeries--03/2019-10/01 020--Lumbar spine-Dr. Saldana in [place], [place]--at a [facility] in [place], [place] Hospitalization History Reason Date(Month/Year) 4 back surgeries [id number]
== END 2024-06-09 12:40 | disposition home or self-care (01) ==
LOC: HO.HMGCLDS 12:39
PROVIDERS: PCP Internal Medicine; Visit Provider Surgery
DX: E20.9 Hypoparathyroidism, unspecified (principal)
CPT/HCPCS: 36415; 82040; 82310

== ENCOUNTER 2024-06-19 09:15 | Outpatient (REF) | payer MEDICARE, SELFPAY ==
--- OUTSIDE RECORDS SUMMARY | 2024-06-19 09:22 | XMS_ITS | Patient Health Record ---
Author Organization [facility] Address [address] [place] [address] Care Team Providers Care Printer'S Devil Name Role Phone Della Ellison MD Primary Care Provider Lavell Landeros [phone] ALLERGIES Allergen (clinical drug ingredient) Drug/Non Drug [...] Problem Epigastric abdominal pain (R10.13) Active confirmed 93955126 Problem Encounter for screening for malignant neoplasm of colon (Z12.11) Active confirmed 422586977 Problem Celiac disease (K90.0) Active confirmed 987277610 Problem Gastroesophageal reflux disease without esophagitis (K21.9) Active confirmed 297501199 Problem Barretts esophagus without dysplasia (K22.70) Active confirmed 789875838 Problem Gastroesophageal reflux (K21.9) Active confirmed Esophageal reflux finding (758886712) Problem Diverticulosis of sigmoid colon (K57.30) Active confirmed Diverticulosis of sigmoid colon (427578801) PLAN OF TREATMENT Pending Test Test Name [...] Insured Coverage Start Date Coverage End Date [facility] [address] [place], [place] [id number] MORGAN CHRISTIAN Self - patient is the insured MEDICARE OF [place] [address] [place] [address] [id number] MORGAN CHRISTIAN Self - patient is the insured MEDICAL (GENERAL) HISTORY Medical History History ICD Code CELIAC DISEASE-Dx'd in 2009- -neg labs in 06/2013; normal duodenal biopsies in 2016 COLONOSCOPY WAS NEGATIVE IN January and in 2002 JUDD'S ESOPHAGUS-Dx'd in 2009 ARTHRITIS/Fibromyalgia Denies [place],DM,CVA,Lung disease,renal dise ase Hypercholesterolemia Upper endoscopy 07-14-13--sma [...] 4 back surgeries--03/2019-10/01 020--Lumbar spine-Dr. Saldana in [place], [place]--at a [facility] in [place], [place] Hospitalization History Reason Date(Month/Year) 4 back surgeries [id number]
--- OUTSIDE RECORDS SUMMARY | 2024-06-19 09:22 | XMS_ITS | Continuity of Care Document ---
Author Organization [facility] Address [address] [place] [address]- Care Team Providers Care Sweep Press Operator Name Role Phone Della Ellison MD Primary Care Physician [phone] [id number](s): 05/19/24 - 06/18/24 [facility] [address] [place], [place] [address] Attending Physician: Marilee Do Admitting Physician: Marilee Do Referring Physician: Marilee Do Encounter Type: Triage Allergies, Adverse Reactions, Alerts [...] Team Personnel Name: Della Ellison MD Position: [facility] Physician - Primary Care Member Role: PCP Address: [address] [place] [address]- Telecom: Care Team Related Persons Name: JOSE KONG Name: MATTHIEU GOMEZ Insurance Providers Guarantor name: [facility] Information #: 1 Payer: NA Member Number: NA Policy Number: NA Group Number: NA
[2024-06-19 13:39] LABS: MANUAL DIFF FLAG NO
[2024-06-19 13:47] LABS: Basophils Absolute Auto 0.1 X10*3/uL (0.0-0.2); Basophils Percent Auto 1.1 % (0-2); Eosinophils Absolute Auto 0.2 X10*3/uL (0.0-0.4); Eosinophils Percent Auto 3.6 % (0-4); Imm Gran Abs Auto 0.01 X10*3/uL (0.00-0.03); Imm Gran Pct Auto 0.2 % (0.0-0.4); Lymphocytes Absolute Auto 1.8 X10*3/uL (1.2-4.9); Lymphocytes Percent Auto 38.5 % (20-40); Mean Corpuscular HGB Conc 32.6 g/dl (31.0-35.0); Mean Corpuscular Hemoglobin 30.9 pg (27.0-33.0); Mean Corpuscular Volume 94.9 fL (80.0-98.0); Mean Platelet Volume 13.2 fL (9.4-12.3); Monocytes Absolute Auto 0.5 X10*3/uL (0.1-1.2); Monocytes Percent Auto 9.7 % (2-11); Neutrophils Absolute Auto 2.2 x10*3/uL (2.0-8.3); Neutrophils Percent Auto 46.9 % (45-73); Platelet Count 176 X10*3/uL (160-400); Red Blood Count 4.53 X10*6/uL (4.20-5.50); White Blood Count 4.7 X10*3/uL (4.8-10.8)
[2024-06-19 13:51] LABS: Alanine Aminotransferase 32 U/L (0-31); Albumin Level 4.3 g/dL (3.5-5.0); Alkaline Phosphatase 71 U/L (39-117); Anion Gap 7 (12-20); Aspartate Amino Transferase 32 U/L (5-31); Bilirubin Total 0.7 mg/dL (0.0-1.0); Blood Urea Nitrogen 14 mg/dL (9-16); Calcium 9.2 mg/dL (8.4-10.2); Carbon Dioxide 31 mmol/L (22-29); Chloride 111 mmol/L (96-108); Cholesterol 181 mg/dL (<200); Estimated Glomerular Filt Rate 58; Glucose Fasting 98 mg/dL (60-99); HDL Cholesterol 75 mg/dL (>40); LDL Cholesterol Calculated 96 mg/dL (<100); Potassium 4.3 mmol/L (3.3-5.1); Sodium 145 mmol/L (135-145); Total Protein 6.6 g/dL (6.5-8.0); Triglycerides 52 mg/dL (<150)
[2024-06-19 14:08] LABS: TSH reflex Free T4 2.22 uIU/mL (0.32-4.0)
[2024-06-19 14:33] LABS: Parathyroid Hormone Intact 69.2 pg/mL (8.7-77.1)
[2024-06-20 13:12] LABS: Calcium, Ionized 5.1 mg/dL (4.7-5.5)
[2024-06-24 12:12] LABS: Vitamin D 25-OH, D2 <4 ng/mL; Vitamin D 25-OH, D3 36 ng/mL; Vitamin D 25-OH, Total 36 ng/mL (30-100)
== END 2024-06-19 09:16 | disposition home or self-care (01) ==
LOC: HO.HMGCLDS 09:15
PROVIDERS: PCP Internal Medicine; Visit Provider Internal Medicine
DX: E21.3 Hyperparathyroidism, unspecified (principal); M81.0 Age-related osteoporosis without current pathological fracture; I10 Essential (primary) hypertension; E78.5 Hyperlipidemia, unspecified; I71.43 Infrarenal abdominal aortic aneurysm, without rupture
CPT/HCPCS: 36415; 80053; 80061; 82306; 82330; 83970; 84443; 85025

== ENCOUNTER 2024-07-01 13:31 | Outpatient (AMB) | payer MEDICARE, SELFPAY ==
--- OUTSIDE RECORDS SUMMARY | 2024-07-01 13:02 | XMS_ITS | Patient Health Record ---
Author Organization [facility] Address [address] [place] [address] Care Team Providers Care Service Dispatcher Name Role Phone Della Ellison MD Primary Care Provider Lavell Landeros [phone] ALLERGIES Allergen (clinical drug ingredient) Drug/Non Drug [...] Problem Epigastric abdominal pain (R10.13) Active confirmed 34591165 Problem Encounter for screening for malignant neoplasm of colon (Z12.11) Active confirmed 285629384 Problem Celiac disease (K90.0) Active confirmed 140098587 Problem Gastroesophageal reflux disease without esophagitis (K21.9) Active confirmed 002417970 Problem Barretts esophagus without dysplasia (K22.70) Active confirmed 100321168 Problem Gastroesophageal reflux (K21.9) Active confirmed Esophageal reflux finding (828889501) Problem Diverticulosis of sigmoid colon (K57.30) Active confirmed Diverticulosis of sigmoid colon (172665328) PLAN OF TREATMENT Pending Test Test Name [...] Insured Coverage Start Date Coverage End Date [facility] [address] [place], [place] [id number] MORGAN CHRISTIAN Self - patient is the insured MEDICARE OF [place] [address] [facility] [place] [address] [phone] [id number] MORGAN CHRISTIAN Self - patient is the insured MEDICAL (GENERAL) HISTORY Medical History History ICD Code CELIAC DISEASE-Dx'd in 2009- -neg labs in 06/2013; normal duodenal biopsies in 2016 COLONOSCOPY WAS NEGATIVE IN January and in 2002 JUDD'S ESOPHAGUS-Dx'd in 2009 ARTHRITIS/Fibromyalgia Denies [place],DM,CVA,Lung disease,renal dise ase Hypercholesterolemia Upper endoscopy 07-14-13--sma [...] 4 back surgeries--03/2019-10/01 020--Lumbar spine-Dr. Saldana in [place], [place]--at a [facility] in [place], [place] Hospitalization History Reason Date(Month/Year) 4 back surgeries [id number]
--- OUTSIDE RECORDS SUMMARY | 2024-07-01 13:02 | XMS_ITS | Continuity of Care Document ---
Author Organization [facility] Address [address] [place] [address] [address] [place] [address]- Care Team Providers Care Hollock Maker Name Role Phone Della Ellison MD Primary Care Physician [phone] [id number] Date(s): 06/18/24 - 06/25/[address] [place] [address]- Attending Physician: Prateek Abreu MD Referring Physician: Della Ellison MD Encounter Type: Office Visit Allergies, Adverse [...] use Confirmed Active Osteoporosis, postmenopausal Confirmed Active Vital Signs Most recent to oldest [Reference Range]: 1 Height 172 cm (06/18/24 9:40 AM) Weight 73.1 kg (06/18/24 9:40 AM) Pulse Rate [55-90 bpm] 65 bpm (06/18/24 9:40 AM) Body Mass Index [18.5-24.99 kg/m2] 24.71 kg/m2 (06/18/24 9:40 AM) Blood Pressure [90-138/55-84 mm Hg] 145/ 82mm Hg *H* (06/18/24 9:40 AM) Temperature [96.8-100.4 DegF] 98.7 DegF (06/18/24 9:40 AM) Blood pressure sites Arm, left (06/18/24 9:40 AM) Temperature Route Temporal (06/18/24 9:40 AM) Weight Obtained Via Standing scale (06/18/24 9:40 AM) Social History Social History Type Response Smoking Status Former smoker, quit more than 30 days ago entered on: 05/29/23 Sex Sex Representation Female (finding) Patient Care team information Care Team Personnel Name: Della Ellison MD Position: [facility] Physician - Primary Care Member Role: PCP Address: [facility] [place], [place] [address] Telecom: Care Team Related Persons Name: JOSE KONG Name: MATTHIEU GOMEZ Insurance Providers Guarantor name: MORGAN CHRISTIAN Health [facility] Information #: 1 Payer: NA Member Number: [id number] Policy Number: NA Group Number: NA Health Plan Information #: 2 Payer: NA Member Number: [id number] Policy Number: NA Group Number: NA
[2024-07-01 13:13] VITALS: BP 130/80; PULSE 70; O2SAT 98; BMI 24.9
--- NOTE | 2024-07-01 13:13 | A.OFFPC_ITS ---
Vital Signs 07/01/24 13:13 Height 5 ft 8 in Weight 164 lb BMI 24.9 BP 130/80 Blood Pressure Location Rt brachial Position Sitting Pulse 70 Pulse Source Pulse Oximeter Pulse Oximetry (%) 98 Oxygen Delivery Method Room Air Intake Visit Reasons: Annual PE Intake Note: Pt is here today for PE. Allergies gluten Allergy (Verified 07/01/24 13:14) Gastrointestinal Upset Medication List - Last Reconciled 07/01/24 by Della Ellison MD apixaban (Eliquis) 5 mg PO BID biotin PO calcium (calcium citrate) PO cholecalciferol (vitamin D3) PO cyclosporine 0.05% (Restasis MultiDose) 1 drp ophthalmic (eye) Q12H ezetimibe 10 mg PO DAILY famotidine 40 mg PO BEDTIME metoprolol succinate ER 25 mg PO DAILY rosuvastatin (Crestor) 40 mg PO DAILY telmisartan 20 mg PO DAILY trazodone 25 mg (1/2 x 50 mg) PO BEDTIME [vitamin B complex ] Tobacco use date assessed: 07/01/24 Fall risk assessment: No Falls in past year Last assessed Fall Risk: 07/01/24 Dental Screening Dental Screen Date: 02/26/24 HPI Annual PE HPI Details Pt presents for PE. PFSH Medical History (Updated 07/01/24 @ 15:03 by Della Ellison MD) HTN (hypertension) Axillary adenopathy Neuropathy, peripheral AAA (abdominal aortic aneurysm) Heart murmur TIA (transient ischemic attack) Hypercalcemia Cataracts, bilateral Osteopenia IFG (impaired fasting glucose) Hyperlipidemia Glaucoma GERD (gastroesophageal reflux disease) Celiac disease Surgical History (Updated 07/01/24 @ 15:01 by Della Ellison MD) History of parathyroid surgery History of carpal tunnel repair History of knee replacement, total Hx of appendectomy Hx of colonoscopy History of esophagogastroduodenoscopy (EGD) H/O lumbosacral spine surgery Hx of cataract surgery H/O hernia repair Family History Mother Heart problem Father Heart problem Brother Substance use disorder Social History Housing: House Alcohol intake: current Alcohol intake frequency: a few times a week Alcohol type: wine Patient Tobacco Use Status: Former Tobacco user e-Cigarette/Vaping Use: Never Used service: No Current occupational status: retired Cognitive needs: No Hearing needs: No Vision needs: No Female Reproductive History Menstrual Age of Menarche: 13 Questionnaire Thrive Questionnaire Date Thrive assessed: 02/26/24 I am a: Patient What is your living situation today?: I have a steady place to live Within the past 12 months, did the food you bought not last and you didn't have the money to get more?: Never true Within the past 12 months, did you worry whether your food would run out before you got money to buy more?: Never true Do you have trouble paying for medicines?: No Do you have trouble getting transportation to medical appointments?: No Do you have trouble paying your heating and electricity bill?: No Do you have trouble taking care of your child, family member or friend?: No Do you have trouble with day-to-day activities such as bathing, preparing meals, shopping, managing finances, etc.?: No Are you currently unemployed and looking for a job?: No Are you interested in more education?: No Please select the resources that you would like help with: None Currently or been in a relationship where the following occur: No concerns reported THRIVE Score: 0 TAE-7 AMB Questionnaire TAE-7 Date TAE - 7 assessed: 01/25/23 Source: Developed by Drs. Lavell Serrano, Margoth Winslow, Alonzo Veras and colleagues, with an educational min from [employer]. Review of Systems Const All systems reviewed & are unremarkable except as noted in HPI and below Eyes Reports no additional complaints ENT Reports no additional complaints Card Reports no additional complaints Resp Reports no additional complaints GI Reports no additional complaints Reports no additional complaints Physical exam (Primary Care) Vital Signs: Last Vital Signs Pulse 70 07/01/24 13:13 Pulse Ox 98 07/01/24 13:13 Oxygen Delivery Method Room Air 07/01/24 13:13 BMI result Body Mass Index 24.9 Tobacco/Smoking Status: Tobacco use Status Tobacco use date assessed 07/01/24 07/01/24 13:14 Patient Tobacco Use Status Former Tobacco user 07/01/24 13:14 e-Cigarette/Vaping Use Never Used 07/01/24 13:14 Thrive Assessment: Date of Thrive Assessment Date Thrive assessed 02/26/24 07/01/24 13:14 Currently or been in a relationship where the following occur: No concerns reported Const General: no acute distress HENMT Head: Yes normal to inspection Face and sinus: Yes normal facial exam Throat: Yes posterior oropharynx normal Eyes General: appearance normal, both eyes and all related structures Resp Effort & Inspection: normal respiratory effort Auscultation: clear to auscultation bilaterally Cardio Rhythm: regular rhythm Heart sounds: S1 normal heart sound present and S2 normal heart sound present GI Inspection: Yes normal to inspection Palpation (GI): Soft to palpation Percussion: Yes normal to percussion Auscultation: normal bowel sounds Coding Level of Care Code Est Pt Prev Care >65y(97445) Diagnoses Annual physical exam Z00.00 Osteoporosis M81.0 Elevated LFTs R79.89 A-fib I48.91 H/O parathyroidectomy ; Z HTN (hypertension) I10 Hyperlipidemia E78.5 Assessment & Plan Assessment & Plan (1) Annual physical exam: Code(s): Z00.00 - Encounter for general adult medical examination without abnormal findings Category: Medical Plan: Well-balanced diet regular physical activity discussed with the patient (2) Osteoporosis: Comment: DEXA 12/21 T score -2.7, f/u with Endo, Dr. Gay, started on Ca and vit D 05/24, DEXA T score -3.2 2023 s/p parathyroidectomy 2023 Code(s): M81.0 - Age-related osteoporosis without current pathological fracture Category: Medical Plan: Patient will discuss osteoporosis treatment with company manager. She will continue calcium and vitamin-D supplement (3) Elevated LFTs: Code(s): R79.89 - Other specified abnormal findings of blood chemistry Category: Medical Plan: Borderline elevated repeat LFTs in 1 month (4) A-fib: Comment: f/u with cardiology Dr. Posada CT Code(s): I48.91 - Unspecified atrial fibrillation Category: Medical Plan: Continue Eliquis and metoprolol for rate control patient is looking to get established with [facility] (5) H/O parathyroidectomy: Comment: 06/2024 Code(s): Z98.890 - Other specified postprocedural states; Z90.89 - Acquired absence of other organs Category: Surgical Plan: Follow-up with endocrinology (6) HTN (hypertension): Code(s): I10 - Essential (primary) hypertension Category: Medical Plan: Continue current medications (7) Hyperlipidemia: Comment: f/u with [place], Atorvastatin caused myalgia, controlled on Crestor and Zetia Code(s): E78.5 - Hyperlipidemia, unspecified Category: Medical Plan: Continue statin and Zetia Orders: Orders Liver Panel 1 Month R79.89 - Other specified abnormal findings of blood chemistry Basic Metabolic Panel 1 Month M81.0 - Age-related osteoporosis without current pathological fracture, Z00.00 - Encounter for general adult medical examination without abnormal findings
== END 2024-07-01 15:04 | disposition home or self-care (01) ==
PROVIDERS: PCP Internal Medicine; Visit Provider Internal Medicine
DX: Z00.00 Encounter for general adult medical examination without abnormal findings (principal); M81.0 Age-related osteoporosis without current pathological fracture; R79.89 Other specified abnormal findings of blood chemistry; I48.91 Unspecified atrial fibrillation; Z98.890 Other specified postprocedural states; Z90.89 Acquired absence of other organs; I10 Essential (primary) hypertension; E78.5 Hyperlipidemia, unspecified

== ENCOUNTER 2024-07-09 10:48 | Outpatient (REF) | payer MEDICARE, SELFPAY ==
--- NOTE | ~2024-07-09 | MM_ITS ---
EXAMINATION: MM SCREENING DIGITAL BREAST TOMOSYNTHESIS, BILATERAL CLINICAL INFORMATION: Screening. Asymptomatic. COMPARISON: Mammography: Comparison is made with available priors TECHNIQUE: Digital breast mammography with tomosynthesis is performed in both the craniocaudal and mediolateral oblique views along with computer-aided detection (CAD). FINDINGS: There are scattered areas of fibroglandular density (ACR BI-RADS breast composition Category b). Cardiac loop recorder overlies and obscures the inferior medial left breast. There are no significant masses, abnormal calcifications, or other abnormalities. MM/MM tomosynthesis screening BI IMPRESSION: No mammographic evidence of malignancy. ASSESSMENT: BI-RADS BI-RADS 2 - Benign Findings RECOMMENDATION: Routine annual mammography screening. 1 year F/U This examination should not preclude the clinical evaluation of a suspicious palpable abnormality. This patient's information was entered into a reminder system with a target due date for their next mammogram. Electronically signed by: Brenna Cary DO 07/15/2024 05:33 PM [facility]
--- OUTSIDE RECORDS SUMMARY | 2024-07-09 11:12 | XMS_ITS | Continuity of Care Document ---
Author Organization [facility] Address [address] [place] [address] [address] [place] [address]- Care Team Providers Care Heavy Equipment Operator Apprentice Name Role Phone Terra PERLA, Della Primary Care Physician [phone] Encounter [facility] Date(s): 06/04/24 - 07/04/[address] [place], [place] [address] Encounter Type: Triage Allergies, Adverse Reactions, Alerts [...] Team Personnel Name: Della Ellison MD Position: [facility] Physician - Primary Care Member Role: PCP Address: [facility] [place] [address]- Telecom: Care Team Related Persons Name: JOSE KONG Name: MATTHIEU GOMEZ Insurance Providers Guarantor name: MORGAN CHRISTIAN Health Plan Information #: 1 Payer: NA Member Number: NA Policy Number: NA Group Number: NA
--- OUTSIDE RECORDS SUMMARY | 2024-07-09 11:12 | XMS_ITS | Continuity of Care Document ---
Author Organization [facility] Address [address] [place] [address] [address] [place] [address]- Care Team Providers Care Combine Mechanic Name Role Phone Terra PERLA, Della Primary Care Physician [phone] Encounter [facility] Date(s): 06/02/24 - 07/02/[address] [place] [address]- Encounter Type: Triage Allergies, Adverse Reactions, Alerts [...] Team Personnel Name: Della Ellison MD Position: [facility] Physician - Primary Care Member Role: PCP Address: [facility] [place] [address]- Telecom: Care Team Related Persons Name: JOSE KONG Name: MATTHIEU GOMEZ Insurance Providers Guarantor name: MORGAN CHRISTIAN Health Plan Information #: 1 Payer: NA Member Number: NA Policy Number: NA Group Number: NA
--- OUTSIDE RECORDS SUMMARY | 2024-07-09 11:13 | XMS_ITS | Patient Health Record ---
Author Organization [facility] Address [address] [place] [address] Care Team Providers Care Storage Manager Name Role Phone Della Ellison MD Primary Care Provider Lavell Landeros [phone] ALLERGIES Allergen (clinical drug ingredient) Drug/Non Drug [...] Problem Epigastric abdominal pain (R10.13) Active confirmed 53469027 Problem Encounter for screening for malignant neoplasm of colon (Z12.11) Active confirmed 350953540 Problem Celiac disease (K90.0) Active confirmed 798419183 Problem Gastroesophageal reflux disease without esophagitis (K21.9) Active confirmed 202178953 Problem Barretts esophagus without dysplasia (K22.70) Active confirmed 298451238 Problem Gastroesophageal reflux (K21.9) Active confirmed Esophageal reflux finding (470155736) Problem Diverticulosis of sigmoid colon (K57.30) Active confirmed Diverticulosis of sigmoid colon (606120922) PLAN OF TREATMENT Pending Test Test Name [...] Insured Coverage Start Date Coverage End Date [facility] [address] [place], [place] [id number] MORGAN CHRISTIAN Self - patient is the insured MEDICARE OF [place] [address] [place] [address] [id number] MORGAN CHRISTIAN Self - patient is the insured MEDICAL (GENERAL) HISTORY Medical History History ICD Code CELIAC DISEASE-Dx'd in 2009- -neg labs in 06/2013; normal duodenal biopsies in 2016 COLONOSCOPY WAS NEGATIVE IN January and in 2002 JUDD'S ESOPHAGUS-Dx'd in 2009 ARTHRITIS/Fibromyalgia Denies AR,DM,CVA,Lung disease,renal dise ase Hypercholesterolemia Upper endoscopy 07-14-13--sma [...] 4 back surgeries--03/2019-10/01 020--Lumbar spine-Dr. Saldana in [place], [place]--at a [facility] in [place], [place] Hospitalization History Reason Date(Month/Year) 4 back surgeries [id number]
== END 2024-07-09 10:49 | disposition home or self-care (01) ==
LOC: HO.MAMMO 10:48
PROVIDERS: PCP Internal Medicine; Visit Provider Internal Medicine
DX: Z12.31 Encounter for screening mammogram for malignant neoplasm of breast (principal)
CPT/HCPCS: 77063; 77067

== ENCOUNTER → 2024-07-09 11:00 | Outpatient (BNV) | payer MEDICARE, SELFPAY | PROVIDERS: PCP Internal Medicine; Visit Provider Internal Medicine | DX: Z12.31 Encounter for screening mammogram for malignant neoplasm of breast (principal) | CPT/HCPCS: 77063; 77067 ==

== ENCOUNTER 2024-12-30 15:21 | Outpatient (REF) | payer MEDICARE, SELFPAY ==
--- NOTE | ~2024-12-30 | XR_ITS ---
EXAMINATION: XR FOOT, RIGHT CLINICAL INFORMATION: M79.671 - Pain in right foot COMPARISON: None available. TECHNIQUE: AP, lateral, and oblique views of the right foot. FINDINGS: There is low bone mineral density. No fracture line is evident. Small calcaneal spurs are present. Cortical irregularity in the middle diaphysis of the third proximal phalanx is probably related to a healed fracture. XR/XR foot RT min 3V IMPRESSION: Osteopenia. Healed third proximal phalanx fracture. Electronically signed by: Asher Quispe MD 12/30/2024 04:55 PM EDT
== END 2024-12-30 15:22 | disposition home or self-care (01) ==
LOC: HO.HMGCX 15:21
PROVIDERS: PCP Internal Medicine; Visit Provider Physician Assistant Medical
DX: S93.601A Unspecified sprain of right foot, initial encounter (principal); Z91.81 History of falling
CPT/HCPCS: 73630; 99212

== ENCOUNTER 2024-12-30 15:21 | Outpatient (AMB) | payer MEDICARE, SELFPAY ==
--- OUTSIDE RECORDS SUMMARY | 2023-08-20 07:55 | XMS_ITS ---
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
[2024-12-30 15:38] VITALS: BP 114/68; PULSE 62; TEMP 36.7; O2SAT 97
--- NOTE | 2024-12-30 15:38 | AM.OFFWIN_ITS ---
Intake Vital Signs 12/30/24 15:38 Height 58 ft Weight 160 lb BMI 0.2 BP 114/68 Blood Pressure Location Lt brachial Position Sitting Pulse 62 Pulse Source Pulse Oximeter Temp 98.1 F Temp Source Oral Pulse Oximetry (%) 97 Oxygen Delivery Method Room Air Intake Visit Reasons: EP injured RT side of foot in pain & swollen Intake Note: patient reports right foot pain, swelling & bruising x2 days Patient Tobacco Use Status: Former Tobacco user Allergies gluten Allergy (Verified 12/30/24 15:41) Gastrointestinal Upset HPI HPI Comments History of Present Illness Details History of Present Illness - The patient is a 79-year-old female pr esenting with right foot pain following a fall. - The incident occurred two days ago whe n the patient tripped in a hole in the [place] the [place] in [place]. - The patient reports that wearing a dwight e provides some relief due to support, but walking barefoot exacerbates the pain. - There is tenderness on the right foot and hurts to walk on it. - The patient denies any injury to the a nkle, knee, or leg. - The patient denies numbness or tinglin g. Physical Exam General: Cooperative, healthy appearing, comfortable, no acute distress and well developed Respiratory: Normal respiratory effort and able to speak in complete sentences. Clear to auscultation bilaterally Cardiovascular: Regular rate and rhythm. Normal S1 and S2 Skin: No rashes or lesions noted. No abrasions noted. Musculoskeletal: Swelling noted on the lateral aspect of the right foot. TTP of the right 4th and 5th metatarsals. No TTP of the calcaneous, plantar fascia, forefoot, medial or lateral malleolus on the right Pulses are 2+ on the LE. DTR are 1+ on the LE. FROM of the ankle. Ambulates with a steady gait. Strength is 5/5 on the LE bilaterally. Neuro: Sensation is intact on the LE bilaterally. [facility] Medical History (Updated 07/01/24 @ 15:03 by Della Ellison MD) HTN (hypertension) Axillary adenopathy Neuropathy, peripheral AAA (abdominal aortic aneurysm) Heart murmur TIA (transient ischemic attack) Hypercalcemia Cataracts, bilateral Osteopenia IFG (impaired fasting glucose) Hyperlipidemia Glaucoma GERD (gastroesophageal reflux disease) Celiac disease Surgical History (Updated 07/01/24 @ 15:01 by Della Ellison MD) History of parathyroid surgery History of carpal tunnel repair History of knee replacement, total Hx of appendectomy Hx of colonoscopy History of esophagogastroduodenoscopy (EGD) H/O lumbosacral spine surgery Hx of cataract surgery H/O hernia repair Family History Mother Heart problem Father Heart problem Brother Substance use disorder Social History Housing: House Alcohol intake: current Alcohol intake frequency: a few times a week Alcohol type: wine Patient Tobacco Use Status: Former Tobacco user e-Cigarette/Vaping Use: Never Used service: No Current occupational status: retired Cognitive needs: No Hearing needs: No Vision needs: No Female Reproductive History Menstrual Age of Menarche: 13 Review of Systems Const All systems reviewed & are unremarkable except as noted in HPI and below Physical Exam Vital Signs: Last Vital Signs Temp 98.1 F 12/30/24 15:38 Pulse 62 12/30/24 15:38 BP 114/68 12/30/24 15:38 Pulse Ox 97 12/30/24 15:38 Oxygen Delivery Method Room Air 12/30/24 15:38 BMI result Body Mass Index 0.2 Results Reviewed Results Reviewed: Reviewed her foot xray in the office today Assessment & Plan Assessment & Plan (1) Sprain of foot, right: Code(s): S93.601A - Unspecified sprain of right foot, initial encounter Qualifiers: Encounter type: initial encounter Qualified Code(s): S93.601A - Unspecified sprain of right foot, initial encounter Plan Most likely sprain vs contusion vs fracture Plan- - will order an x-ray in the office - rest, ice, and elevation - wear support shoe given in the office today - tylenol or motrin as needed for pain - can refer to ortho if no better - follow up with PCP Orders: Orders XR foot RT min 3V Today M79.671 - Pain in right foot Coding Level of Care Code Est Pt Level 4 (07349) Diagnoses Sprain of right foot, initial encounter S93.601A Encounter type: initial encounter
--- OUTSIDE RECORDS SUMMARY | 2024-12-30 16:08 | XMS_ITS ---
Author Name [facility] Organization Unknown History of Medication Use Medication Directions Dispensed Refills Start Date End Date Stat metoPROLOL SUCCINATE (TOPROL-XL) 25 MG 24 hr tablet Take 1 tablet (25 mg total) by mouth every evening. 03/26/2024 03/27/2024 active telmisartan (MICARDIS) 20 MG tablet Take 1 tablet (20 mg total) by mouth nightly. 06/12/2022 09/06/2022 active atorvastatin (LIPITOR) 40 MG tablet Take 1 tablet by mouth once daily 01/31/2022 10/31/2023 active Flaxseed, Linseed, (Flax Seed Oil) 1000 MG Cap Take 1 capsule by mouth daily. active gabapentin (NEURONTIN) 300 MG capsule Take 1 capsule (300 mg total) by mouth daily. active traZODone (DESYREL) 50 MG tablet Take 1 tablet (50 mg total) by mouth nightly. active Problems Problem Status Onset Date Problem Type Date of Resoluti on Source Essential hypertension active 2021-03-21 ProblemAct [facility] Hyperparathyroidism active 2022-11-28 ProblemAct [facility] Mixed hyperlipidemia active 2021-03-21 ProblemAct [facility] History of amaurosis fugax active 2021-03-21 ProblemAct [facility] Dupuytren's contracture of right hand active 2022-11-28 ProblemAct [facility] Migraine without aura active 2021-03-21 ProblemAct [facility] AAA (abdominal aortic aneurysm) without rupture active 2021-03-21 ProblemAct [facility] Status post placement of implantable loop recorder active 2021-06-02 ProblemAct [facility] Idiopathic peripheral neuropathy active 2021-06-17 ProblemAct [facility] Asymptomatic varicose veins of both lower extremities active 2021-03-21 ProblemAct [facility] GERD (gastroesophageal reflux disease) active 2021-06-17 ProblemAct [facility] Ex-smoker active 2019-02-05 ProblemAct [facility] Carotid artery stenosis, asymptomatic, bilateral active 2021-03-21 ProblemAct [facility] T Farooq's esophagus active 2022-11-28 ProblemAct [facility] Celiac disease active 2021-06-[address] Diverticulosis of sigmoid colon active 2022-11-28 ProblemAct [facility] PAF (paroxysmal atrial fibrillation) active 2024-03-25 ProblemAct [facility] Osteopenia active 2022-11-28 ProblemAct [facility] Hiatal hernia active 2021-06-17 ProblemAct [facility] T Encounters Encounter Type Encounter Reason Primary Diagnosis Location Date Ambulatory Cerebral infarction, unspecified Cerebral infarction, unspecified [facility] 12/22/2024 Ambulatory Cerebral infarction, unspecified Cerebral infarction, unspecified [facility] 11/25/2024 Ambulatory Paroxysmal atrial fibrillation Paroxysmal atrial fibrillation [facility] 10/31/2024 Ambulatory Cerebral infarction, unspecified Cerebral infarction, unspecified [facility] 10/23/2024 Ambulatory Cerebral infarction, unspecified Cerebral infarction, unspecified [facility] 09/23/2024 Ambulatory Cerebral infarction, unspecified Cerebral infarction, unspecified [facility] 08/25/2024 Ambulatory Cerebral infarction, unspecified Cerebral infarction, unspecified [facility] 07/29/2024 Ambulatory Cerebral infarction, unspecified Cerebral infarction, unspecified [facility] 06/26/2024 Ambulatory Cerebral infarction, unspecified Cerebral infarction, unspecified [facility] 05/26/2024 Ambulatory Cerebral infarction, unspecified Cerebral infarction, unspecified [facility] 04/28/2024 Ambulatory Cerebral infarction, unspecified Cerebral infarction, unspecified [facility] 03/27/2024 Ambulatory Cerebral infarction, unspecified Cerebral infarction, unspecified [facility] 03/13/2024 Ambulatory Cerebral infarction, unspecified Cerebral infarction, unspecified [facility] 03/13/2024 Ambulatory Cerebral infarction, unspecified Cerebral infarction, unspecified [facility] 03/13/2024 Ambulatory Cerebral infarction, unspecified Cerebral infarction, unspecified [facility] 03/13/2024 Ambulatory Essential (primary) hypertension Essential (primary) hypertension [facility] 10/31/2023 Ambulatory Cerebral infarction, unspecified Cerebral infarction, unspecified [facility] 10/01/2023 Ambulatory Cerebral infarction, unspecified Cerebral infarction, unspecified [facility] 08/30/2023 Ambulatory Cerebral infarction, unspecified Cerebral infarction, unspecified [facility] 07/31/2023 Ambulatory Cerebral infarction, unspecified Cerebral infarction, unspecified [facility] 07/03/2023 Ambulatory Cerebral infarction, unspecified Cerebral infarction, unspecified [facility] 06/01/2023 Ambulatory Cerebral infarction, unspecified Cerebral infarction, unspecified [facility] 05/02/2023 Ambulatory Cerebral infarction, unspecified Cerebral infarction, unspecified [facility] 04/02/2023 Ambulatory Cerebral infarction, unspecified Cerebral infarction, unspecified [facility] 03/06/2023 Ambulatory Cerebral infarction, unspecified Cerebral infarction, unspecified [facility] 02/01/2023 Ambulatory Cerebral infarct ion, unspecified [facility] 01/04/2023 Ambulatory Essential (prima ry) hypertension [facility] 12/04/2022 Ambulatory Cerebral infarct ion, unspecified [facility] 12/04/2022 Ambulatory Cerebral infarct ion, unspecified [facility] 11/03/2022 Ambulatory Transient cerebr al ischemic attack, unspecified [facility] 10/04/2022 Ambulatory Cerebral infarct ion, unspecified [facility] 09/04/2022 Ambulatory Cerebral infarct ion, unspecified [facility] 08/07/2022 Ambulatory Cerebral infarct ion, unspecified [facility] 07/06/2022 Ambulatory Occlusion and stenosis of bilateral carotid arteries [facility] 06/19/2022 Ambulatory Abdominal aortic aneurysm, without rupture, unspecified Abdominal aortic aneurysm, without rupture, unspecified [facility] 06/19/2022 Ambulatory Cerebral infarct ion, unspecified [facility] 06/08/2022 Ambulatory Cerebral infarct ion, unspecified [facility] 05/08/2022 Ambulatory Cerebral infarct ion, unspecified [facility] 04/07/2022 Ambulatory Cerebral infarct ion, unspecified [facility] 03/14/2022 Ambulatory Cerebral infarct ion, unspecified [facility] 02/06/2022 Ambulatory Transient cerebr al ischemic attack, unspecified [facility] 01/06/2022 Ambulatory Essential (prima ry) hypertension [facility] 12/14/2021 Ambulatory Other specified cardiac arrhythmias [facility] 12/09/2021 Ambulatory Presence of othe r cardiac implants and grafts [facility] 11/07/2021 Ambulatory Other specified cardiac arrhythmias [facility] 10/06/2021 Ambulatory Other specified cardiac arrhythmias [facility] 09/05/2021 Ambulatory Other specified cardiac arrhythmias [facility] 08/04/2021 Ambulatory Other specified cardiac arrhythmias [facility] 07/04/2021 Ambulatory Essential (prima ry) hypertension [facility] 06/20/2021 Ambulatory Abdominal aortic aneurysm, without rupture [facility] 06/20/2021 Ambulatory Personal history of other diseases of the nervous system and sense organs [facility] 06/02/2021 Care Team Organization Name Specialty Phone Email Start Date End Da te [facility] Della Ellison Primary [facility] 10/25/2024 [employer] 3 DELLA ELLISON Primary Care 05/08/2022 [facility] Della Ellison Primary [facility] 06/02/2021 01/07/20 22
--- OUTSIDE RECORDS SUMMARY | 2024-12-30 16:08 | XMS_ITS | Encounter Summary ---
Author Organization [facility] Address [address] [place] [address] Care Team Providers Care Manager Physical Name Role Phone Della Ellison MD Primary Care Provider [phone] Benjamín Devries MD Unavailable [phone] Benjamín Devries MD Unavailable [phone] Encounter Details Date Type Department Care Team (Late st Contact Info) Description 10/02/2024 Telephone [facility] Cardiology [address] [place] [id number] Benjamín Devries MD [address] [place] [address] [place] [id number] Social History Tobacco Use Types Packs/Day Years Used Date Smoking Tobacco: Former Smokeless Tobacco: Never Alcohol Use Standard Drinks/Week Comments Yes 1 (1 standard drink = 0.6 oz pur e alcohol) Physical Activity Answer Date Recorded On average, how many days pe r week do you engage in moderate to strenuous exercise (like a brisk walk)? 4 days 10/31/2023 On average, how many minutes do you exercise per day at this level? 50 min 10/31/2023 Comments Unknown Sex and Gender Information Value Date Recorded Sex Assigned at Female 04/17/2024 9:08 PM EDT Legal Sex Female 6:26 PM EST Gender Identity Female 04/17/2024 9:08 PM EDT Sexual Orientation Heterosexual (straight) 04/17 9:08 PM EDT documented as of this encounter Plan of Treatment Upcoming Encounters Date Type Department Care Team (Late st Contact Info) Description 11/06/2025 2:00 PM EDT Office Visit [facility] [address] [place] [address] Benjamín Devries MD [address] [place] [address] documented as of this encounter Visit Diagnoses Not on filedocumented in this encounter Care Teams Manager Physical Relationship Specialty Start Date End Date Della Ellison MD [address] [place] [address] PCP - General 03/21/21 Benjamín Devries MD [address] [place] [address] Cardiovascular Disease 03/14/22 Benjamín Devries MD [address] [place] [address] Primary Advertising Vice President Cardiovascular Disease 08/23/23 documented as of this encounter
--- OUTSIDE RECORDS SUMMARY | 2024-12-30 16:08 | XMS_ITS | Clinical Summary ---
Author Organization [facility] Address [address] [place] [address] Care Team Providers Care Event Representative Name Role Phone Rachel Brunoth Sophie AMATO Primary Care Provider Allergies Active Allergy Reactions Criticality Noted Date Comments Gluten 11/13/2018 Tramadol Nausea Only Medications Medication Sig Dispensed Refills Start Date End Date Status atorvastatin (LIPITOR) tablet 20 mg TAKE 1 TABLET BY MOUTH ONCE DAILY AT BEDTIME STOP TAKING PRAVASTATIN 3 06/04/2019 Active telmisartan (MICARDIS) 20 MG tablet Take 20 mg by mouth every night at bedtime. 3 05/03/2019 Active celecoxib (CeleBREX) 200 MG capsule TAKE 1 CAPSULE BY MOUTH TWICE A DAY WITH FOOD 0 04/18/2019 Active gabapentin (NEURONTIN) 100 MG capsule Take 1 capsule by mouth once daily 90 capsule 3 02/05/2020 Active Additional Information Patient not taking.Reason: Other, Reported on 05/19/2020 gabapentin (NEURONTIN) 300 MG capsule TAKE 1 CAPSULE BY MOUTH THREE TIMES DAILY 90 capsule 3 02/22/2020 Active Active Problems Problem Noted Date Diagnosed Date Carotid artery stenosis 02/25/2019 Abdominal aortic aneurysm 02/05/2019 Varicose veins of both lower extremities with pa in 11/20/2017 Hyperlipidemia Celiac disease GERD (gastroesophageal reflux disease) IFG (impaired fasting glucose) Insomnia Hyperparathyroidism Osteopenia Vitamin D deficiency Varicose veins of both lower extremities Screening for colon cancer Overview: 09/2002, 01/2010 TIC, INt hemm Screening for cervical cancer Overview: 11/02/2016 OA (osteoarthritis) Mild mitral regurgitation Overview: ECHO: 12/2015 EF 60-65%, NL LVSF, Mild DD Migraines Idiopathic peripheral neuropathy Hiatal hernia Elevated blood pressure read ing in office without diagnosis of hypertension Dupuytren's contracture of right hand DDD (degenerative disc disease), lumbar Immunizations Name Administration Dates Next Due Influenza Quad (Afluria/Fluz one) 0.5mL >=6mon Vial (SD-IIV4) 03/18/2020,05/01/2018 Influenza Trivalent (Fluzone High Dose) 0.7 mL (65yrs &>) 05/01/2018 Td (Tenivac) 04/26/2015 Family History Medical History Relation Name Comments Cirrhosis Brother 1 No Sig Med Hx Brother 2 Hyperlipidemia Daughter 1 No Sig Med Hx Daughter 2 Heart disease Father Heart disease Maternal Grandfather Breast cancer Maternal Grandmother Heart disease Mother Cancer Paternal Grandmother No Sig Med Hx Son Relation Name Status Comments Brother 1 Brother 2 Alive Daughter 1 Alive Daughter 2 Alive Father Maternal Grandfather Maternal Grandmother Breast CA Mother Paternal Grandfather Paternal Grandmother colon Son Alive Social History Tobacco Use Types Packs/Day Years Used Date Smoking Tobacco: Former Cigarettes Smokeless Tobacco: Never Alcohol Use Standard Drinks/Week Comments Yes 4 (1 standard drink = 0.6 oz pur e alcohol) Sex and Gender Information Value Date Recorded Sex Assigned at Not on file Gender Identity Not on file Sexual Orientation Not on file Last Filed Vital Signs Vital Sign Reading Time Taken Comments Blood Pressure 132/80 05/19/2020 2:12 PM EST Pulse 72 05/19/2020 2:12 PM EST Temperature 36.5 C (97.7 F) 05/19/2020 2:12 PM EST Respiratory Rate 14 05/19/2020 2:12 PM EST Oxygen Saturation 98% 05/19/2020 2:12 PM EST Inhaled Oxygen Concentration - - Weight 83.4 kg (183 lb 14.4 oz) 05/19/2020 2:12 PM EST Height 170.8 cm (5' 7.25 ) 05/19/2020 2:12 PM ES T Body Mass Index 28.59 05/19/2020 2:12 PM EST Plan of Treatment Health Maintenance Due Date Last Done Comments COVID-19 Vaccine (#1) 04/13/1946 Pneumococcal Vaccine (1 of 1 - PCV) 10/13/2011 Shingrix-Zoster Vaccine (2 of 2) 07/14/2020 05/19/2020 Osteoporosis Screening (DEXA Scan) 12/02/2020 12/02/2018, 11/20/2017, 12/18/2016 Depression Screening 05/04/2021 05/04/2020, 05/04/2020, 05/04/2020, Additional history exists Fall Risk Assessment 05/04/2021 05/04/2020, 05/04/2020, 05/04/2020, Additional history exists Preventative Health Evaluation 05/04/2021 05/04/2020, 05/04/2020, 11/13/2018, Additional history exists RSV Adult > 60+ Yrs or (1 - 1-dose 75+ series) 2021 Influenza Vaccine (Season Ended) 2025 05/19/2020, 03/18/2020, 05/01/2018, Additional history exists DTap / Tdap / Td (2 - Td or Tdap) 11/21/2027 11/20/2017 (Declined), 04/26/2015 Hepatitis C Screening Completed 11/13/2018 Hepatitis B Vaccines Aged Out No long er eligible based on patient's age to complete this topic RSV Ped < 20 months Aged Out No longe r eligible based on patient's age to complete this topic Care Teams Event Representative Relationship Specialty Start Date End Date Beti Bruno DO PCP - General Family Medicine 11/21/17
--- OUTSIDE RECORDS SUMMARY | 2024-12-30 16:09 | XMS_ITS | Clinical Summary ---
Author Organization [facility] Address [address] [place] [address] Phone Care Team Providers Care Supervisor Delivery Department Name Role Phone Beti Bruno DO Primary Care Provider + Encounters Date Type Department Care Team Description 11/07/[address] [place] [phone] Beti Bruno DO 10/10/[address] [place] [address] Della Ellison MD Referral (Received routine paper referral - September) from Last 3 Months Surgical History Surgery Date Site/Laterality Comments OTHER SURGICAL HISTORY 2001 PROCEDURE:Lt knee replacement;COMMENT:Dr Turner OTHER SURGICAL HISTORY 2001 PROCEDURE:rt knee replacement;COMMENT:Dr Turner ABDOMINAL HERNIA REPAIR 08/2015 PROCEDURE:ABDOMINAL HERNIA REPAIR;COMMENT:Dr Amador CATARACT EXTRACTION, BILATERAL PROCEDURE:CATARACT EXTRACTION, BILATERAL;COMMENT:LT 05/22/2017, Rt 06/19/2017 REFRACTIVE SURGERY PROCEDURE:REFRACTIVE SURGERY;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, 12/14/2016 ESOPHAGOGASTRODUODENOSCOPY 01/12/2017 PROCEDURE:ESOPHAGOGASTRODUO DENOSCOPY;COMMENT:Metaplasi a/Farooq's mild chronic inflamm, mild reflux esophagitis Dr Bell DUPUYTREN CONTRACTURE RELEASE 01/08/2014 PROCEDURE:DUPUYTREN CONTRACTURE RELEASE;COMMENT:Dr Jones TONSILLECTOMY 1951 PROCEDURE:TONSILLECTOMY OTHER SURGICAL HISTORY 08/14/2017 Left PROCEDURE:SI joint injection OTHER SURGICAL HISTORY 05/08/2014 PROCEDURE:aright small finger subtotal fasciectomy ;COMMENT:Dupuytren's Dr Jones ESOPHAGOGASTRODUODENOSCOPY 01/2010 PROCEDURE:ESOPHAGOGASTRODUO DENOSCOPY;COMMENT:Chronic duodenitis c/w Celiac H. Pylori neg Dr Bell ESOPHAGOGASTRODUODENOSCOPY 07/2013 PROCEDURE:ESOPHAGOGASTRODUO DENOSCOPY;COMMENT: Bx mild active chronic inflammation Farooq's no dysplasia, H Pylori neg, EGD COLONOSCOPY 09/2002 PROCEDURE:COLONOSCOPY COLONOSCOPY 01/2010 PROCEDURE:COLONOSCOPY;COMME NT: TIC, INt hemm CHOLECYSTECTOMY 2005 PROCEDURE:LAPAROSCOPIC CHOLECYSTECTOMY APPENDECTOMY 1962 PROCEDURE:APPENDECTOMY BREAST BIOPSY Right PROCEDURE:BREAST BIOPSY;COMMENT:12/1999 CHOLECYSTECTOMY PROCEDURE:CHOLECYSTECTOMY OTHER SURGICAL HISTORY 05/2017 Left PROCEDURE:SI joint injection OTHER SURGICAL HISTORY 03/10/2019 PROCEDURE:Lumbar fusion L3-4,L4-5, L5-S1 OTHER SURGICAL HISTORY 03/31/2019 PROCEDURE:Removal of Right L5 screw Medical History Medical History Date Comments Celiac disease 01/2010 DX:Celiac diseas e Hyperlipidemia DX:Hyperlipidemi a;COMMENT:LDL goal 70 Insomnia DX:Insomnia IFG (impaired fasting glucose) D X:IFG (impaired fasting glucose) Hyperparathyroidism (CMS/HCC V24) DX:Hyperparathyroidism (HCC) Varicose veins of both lower extremities DX:Varicose veins of both lower extremities Glaucoma 02/23/2016 DX:Glaucoma;COMM ENT:Dr Singh GERD (gastroesophageal reflux disease) DX:GERD (gastroesophageal reflux disease);COMMENT:Dr Bell H/O Farooq's EGD 07/2013 Bx mild active chronic inflammation no dysplasia, H Pylori neg, EGD 12/2016 Metaplasia/Farooq's mild chronic inflammation, mild reflux esophagitis Screening for cervical cancer DX :Screening for cervical cancer;COMMENT:11/02/2016 Screening for colon cancer DX:Sc reening for colon cancer;COMMENT:09/2002, 01/2010 TIC, INt hemm, 05/2018 stool neg Migraines DX:Migraines Chronic UTI DX:Chronic UTI Anemia DX:Anemia Elevated blood pressure read ing in office without diagnosis of hypertension DX:Elevated blood pr essure reading in office without diagnosis of hypertension Hiatal hernia DX:Hiatal hernia Dupuytren's contracture of right hand DX:Dupuytren's contracture of right hand OA (osteoarthritis) DX:OA (osteo arthritis);COMMENT:lt hip Idiopathic peripheral neuropathy DX:Idiopathic peripheral neuropathy Mild mitral regurgitation DX:Mil d mitral regurgitation;COMMENT:ECHO: 12/2015 EF 60-65%, NL LVSF, Mild DD Vitamin D deficiency DX:Vitamin D deficiency Spinal stenosis of lumbar region DX:Spinal stenosis of lumbar region;COMMENT:Dr. Lei 10/2017 MRI-L: L3-4 grade 1 spondy with severe central canal stenosis, DDD, L4-5 grade 1 Spondy mild central canal 04/2018: Spondy L3-L4, L4-L5, L5-S1 mild anterior translation at L3-L4, L4-L5 in flexion Barretts esophagus 2009 DX:Barretts e sophagus Scoliosis of thoracic spine DX:S coliosis of thoracic spine;COMMENT:08/2015 T-spine mild lower thoracic Actinic keratosis DX:Actinic ker atosis Rosacea DX:Rosacea Screening for breast cancer DX:S creening for breast cancer;COMMENT:05/14/2017 Neg, 06/10/2018: Neg AAA (abdominal aortic aneury sm) ([facility] V24) DX:AAA (abdominal aortic aneurysm) ([facility]);COMMENT:08/2018 CT- 3.2 infrarenal AAA CKD (chronic kidney disease) stage 3, GFR 30-59 ml/min ([facility] V24, CMS/HCC V28) DX:CKD (chroni c kidney disease) stage 3, GFR 30-59 ml/min ([facility]) Screening for osteoporosis DX:Ny reening for osteoporosis;COMMENT:Dr Trent 12/18/2016 DEXA: T-1.6 hip, 11/2018: Osteopenia T LS -1.9, Hip T-1.8 FRAX 17/5.4% Osteopenia DX:Osteopenia;CO MMENT:11/2018: FRAX 17/5.4% Osteopenia Bilateral carotid bruits DX:Bila teral carotid bruits History of nuclear stress test 01/2019 D X:History of nuclear stress test;COMMENT:EF 69%, rest and stress is normal Family history of premature CAD DX:Family history of premature CAD;COMMENT:Father 39 yrs Family History Medical History Relation Name Comments Cirrhosis Brother 1 No Known Problems Brother 2 Hyperlipidemia Daughter 1 No Known Problems Daughter 2 Heart disease Father Heart disease Maternal Grandfather Breast cancer Maternal Grandmother Heart disease Mother Cancer Paternal Grandmother No Known Problems Son Relation Name Status Comments Brother 1 Brother 2 Alive Daughter 1 Alive Daughter 2 Alive Father Maternal Grandfather Maternal Grandmother Breast CA Mother Paternal Grandfather Paternal Grandmother colon Son Alive Social History Tobacco Use Types Packs/Day Years Used Date Smoking Tobacco: Former Smokeless Tobacco: Never Alcohol Use Standard Drinks/Week Comments Yes 4 (1 standard drink = 0.6 oz pur e alcohol) Comments Unknown Sex and Gender Information Value Date Recorded Sex Assigned at Not on file Legal Sex Female 6:27 AM EST Gender Identity Not on file Sexual Orientation Not on file Obstetrics History Plan of Treatment Upcoming Encounters Date Type Department Care Team (Late st Contact Info) Description 03/31/2025 8:20 AM EDT Office Visit [address] [place] [address] Phani Gutierrez MD [address] [place] [address] [address] [place] [address] Health Maintenance Due Date Last Done Comments Pneumococcal Vaccine: 50+ Years (1 of 1 - PCV) 1996 Zoster Vaccines (1 of 2) 1996 RSV Immunization Adult Patients (1 - 1-dose 75+ series) 2021 COVID-19 Vaccine (2023-2 5 season) 2024 Depression Screening 10/16/2024 Falls Risk Assessment 10/16/2024 Hepatitis C Screening 10/16/2024 Medicare Annual Wellness Visit 10/16/2024 Social Influencers of Health Screening 10/16/2024 Influenza Vaccine (Season Ended) 2025 03/18/2020, 05/01/2018, 05/01/2018 DTaP,Tdap,and Td Vaccines (2 - Td or Tdap) 04/26/2025 04/26/2015 Cholesterol Screening (Lipid Panel) 05/19/2025 05/19/2020, 05/19/2020, 11/13/2018 Osteoporosis Screening (Bone Density Screening) 12/20/2028 12/20/2018 HIB Vaccines Aged Out No longer eligi ble based on patient's age to complete this topic HPV Vaccines Aged Out No longer eligi ble based on patient's age to complete this topic Hepatitis A Vaccines Aged Out No long er eligible based on patient's age to complete this topic Hepatitis B Vaccines Aged Out No long er eligible based on patient's age to complete this topic IPV Vaccines Aged Out No longer eligi ble based on patient's age to complete this topic MMR Vaccines Aged Out No longer eligi ble based on patient's age to complete this topic Meningococcal ACWY Vaccine Aged Out N o longer eligible based on patient's age to complete this topic Meningococcal B Vaccine Aged Out No l onger eligible based on patient's age to complete this topic RSV Immunization Patients Under 20 months Aged Out No longer eligible b ased on patient's age to complete this topic Varicella Vaccines Aged Out No longer eligible based on patient's age to complete this topic Procedures Procedure Name Priority Date/Time Associated Diagnosis Comments [facility] DEXA AXIAL SKELETON Routine 12/20/2018 11:49 AM EDT Other specified disorders of bone density and structure, unspecified site from Last 3 Months or Most Recently Relevant to Health Maintenance Results * [facility] DEXA AXIAL SKELETON (12/20/2018 11:49 AM EDT) Anatomical Region Laterality Modality Mammography 12/20/2018 10:4 5 AM EDT Narrative 12/20/2018 11:49 AM EDT [facility] Diagnostic Imaging Department [address] [place] [address] Patient: CHRISTIANGIOVANA /Age/Sex: 1945 - 73 - F Unit#: [id number] [facility] Ordering Physician: PAWEL ALVARADO MD, PHD [facility] Dexa Axial Skeleton - 12/20/18 1133 HISTORY: The patient is a 73-year-old postmenopausal female with clinical concern for metabolic bone disease. FINDINGS: Dual energy x-ray absorptiometry of the lumbar spine and femurs is performed. The mean bone mineral density at L2-3 is 0.976 gm/cm2 which is 81% of that of young normals and 92% of that of age matched controls. This yields a T- score of -1.9 and a Z-score of -0.7 which is diagnostic of osteopenia. The mean bone mineral density of the femurs bilaterally is 0.75 gm/cm2 which is 78% of that of young normals and 92% of that of age matched controls. This yields a T-score of -1.8 and a Z-score of -0.6 which is diagnostic of osteopenia. IMPRESSION: 1. Osteopenia. 2. FRAX analysis yields a 10-year probability of major osteoporotic fracture of 17.0% and a 10-year probability of hip fracture of 5.4%. Code 43865 Dictating Physician: STACEY SERRANO MD Electronically Signed by: STACEY SERRANO MD Dic Date/Time: 12/20/18 1148 Sign date/Time: 12/20/18 1149 Procedure Note Stacey Serrano - 06/20/2022 [facility] Diagnostic Imaging Department [address] [place] [address] Patient: GIOVANA CHRISTIAN Olinda Dye./Age/Sex: 1945 - 73 - F Unit#: [id number] Location/Status: [facility] CLI Mnemonic[facility] Ordering Physician: PAWEL ALVARADO MD, PHD [facility] Dexa Axial Skeleton - 12/20/18 - 1133 HISTORY: The patient is a 73-year-old postmenopausal female withclinical concern for metabolic bone disease. FINDINGS: Dual energy x-ray absorptiometry of the lumbar spine and femursis performed. The mean bone mineral density at L2-3 is 0.976 gm/cm2 which is81% of that of young normals and 92% of that of age matched controls. This yieldsa T- score of -1.9 and a Z-score of -0.7 which is diagnostic of osteopenia. The mean bone mineral density of the femurs bilaterally is 0.75 gm/vl0epwhu is 78% of that of young normals and 92% of that of age matched controls.This yields a T-score of -1.8 and a Z-score of -0.6 which is diagnostic of osteopenia. IMPRESSION: 1. Osteopenia. 2. FRAX analysis yields a 10-year probability of major osteoporoticfracture of 17.0% and a 10-year probability of hip fracture of 5.4%. Code 98343 Dictating Physician: STACEY SERRANO MD Electronically Signed by: STACEY SERRANO MD Dic Date/Time: 12/20/18 1148 Sign date/Time: 12/20/18 1149 Pawel Alvarado MD IMG BI PROCEDURES Final R esult from Last 3 Months or Most Recently Relevant to Health Maintenance Insurance [employer] - [place] MEDICARE ADVANTAGE Care Teams Supervisor Delivery Department Relationship Specialty Start Date End Date Beti Bruno DO [address] [facility] [address] [place] [address] PCP - General Family Medicine 11/21/17
--- OUTSIDE RECORDS SUMMARY | 2024-12-30 16:09 | XMS_ITS | Patient Health Record ---
Author Organization [facility] Address [address] [place] [address] Care Team Providers Care Java User Interface Developer Name Role Phone Della Ellison MD Primary Care Provider Lavell Landeros Unavailable [phone] Allergies Allergen (clinical drug ingredient) Drug/Non Drug Allergy documented on EMR Reaction Allergy Type Onset Date Status Gluten gluten (uncoded) Unknown Allergy Act zion Reason For Referral No Information Medications Medication SIG (Take, Route, Frequency, Duration) Notes [...] tablet Orally twic e a day Active Immunizations Vaccine Route Administration Date Status Comme nts Influenza Unknown 03/02/2020 Administered Problems Problem Type SNOMED Code ICD Code Onset Dates Problem Status W/U Status Risk Notes Problem 53977572 Epigastric abdominal pain (R10.13) Active confirmed Problem 218452382 Encounter for screening for malignant neoplasm of colon (Z12.11) Active confirmed Problem 432397342 Celiac disease (K90.0) Active confirmed Problem 388718383 Gastroesophageal reflux disease without esophagitis (K21.9) Active confirmed Problem 260682337 Barretts esophag us without dysplasia (K22.70) Active confirmed Problem Gastroesophageal reflux (K21.9) Active confirmed Problem Diverticulosis of sigmoid colon (828663204) Diverticulosis of sigmoid colon (K57.30) Active confirmed Plan Of Treatment Pending Test Test Name Order Date LIVER [...] Insured Coverage Start Date Coverage End Date [facility] [address] [place], [place] [id number] CHRISTIANMORGAN Self - patient is the insured MEDICARE OF [place] [address] [place] [address] [phone] [id number] MARISA CHRISTIANIL Self - patient is the insured Medical (General) History Medical History History ICD Code CELIAC DISEASE-Dx'd in 2009- -neg labs in 06/2013; normal duodenal biopsies in 2016 COLONOSCOPY WAS NEGATIVE IN January and in 2002 JUDD'S ESOPHAGUS-Dx'd in 2009 ARTHRITIS/Fibromyalgia Denies MT,DM,CVA,Lung disease,renal dise ase Hypercholesterolemia Upper endoscopy 07-14-13--sma [...] 4 back surgeries--03/2019-10/01 020--Lumbar spine-Dr. Saldana in [place], [place]--at a [facility] [place], [place] Hospitalization History Reason Date(Month/Year) 4 back surgeries [id number]
== END 2024-12-30 16:53 | disposition home or self-care (01) ==
PROVIDERS: PCP Internal Medicine; Visit Provider Physician Assistant Medical
DX: S93.601A Unspecified sprain of right foot, initial encounter (principal)

== ENCOUNTER → 2024-12-30 16:10 | Outpatient (BNV) | payer MEDICARE, SELFPAY | PROVIDERS: PCP Internal Medicine; Visit Provider Radiology Diagnostic Radiology | DX: M85.871 Other specified disorders of bone density and structure, right ankle and foot (principal); S92.411D Displaced fracture of proximal phalanx of right great toe, subsequent encounter for fracture with routine healing | CPT/HCPCS: 73630 ==

== ENCOUNTER 2025-02-04 12:02 | Outpatient (AMB) | payer MEDICARE, SELFPAY ==
--- OUTSIDE RECORDS SUMMARY | 2023-08-20 07:55 | XMS_ITS ---
Author Organization [facility]on [facility] Billing Info Address [address] [place] [id number] Care Team Providers Care Cra Officer Name Role Phone MAGDIEL VELASQUEZ Primary Care Provider REASON FOR VISIT My appointment on August 16 Encounters Encounter Location Date Provider Diagnosis [id number] [facility] [address] [id number] 08/20/2023 MAGDIEL VELASQUEZ Plan Of Treatment No Information Progress Notes * Darren CHRISTIANOB:1945 (77 yo F)Acc No.[id number]:08/20/2023 Patient: Giovana MCCARTHY :1945 A ge:77 Y S ex:Female Address:[address] [place] [address], [id number] * true * Date: Generated for Printi ng/Fatrinityg/eTransmitting on: 0 02/04/2025 12:46 PM EDT
[2025-02-04 12:11] VITALS: BP 122/74; PULSE 64; RESP 18; TEMP 36.7; O2SAT 97; BMI 24.9
--- NOTE | 2025-02-04 12:11 | MHC.PC.OV ---
Vital Signs 02/04/25 12:11 Height 5 ft 7.2 in Weight 160 lb BMI 24.9 BP 122/74 Blood Pressure Location Lt brachial Position Sitting Respiration 18 Pulse 64 Pulse Source Pulse Oximeter Temp 98.1 F Temp Source Oral Pulse Oximetry (%) 97 Oxygen Delivery Method Room Air Intake Visit Reasons: Reschedule review bloodtest Intake Note: Pt is here today for a follow up visit. Allergies gluten Allergy (Verified 02/04/25 12:19) Gastrointestinal Upset Medication List - Last Reconciled 02/04/25 by Della Ellison MD biotin PO calcium (calcium citrate) PO cholecalciferol (vitamin D3) PO Eliquis (apixaban) 5 mg PO BID NS ezetimibe 10 mg PO DAILY famotidine 40 mg PO BEDTIME metoprolol succinate ER 25 mg PO DAILY rosuvastatin 40 mg PO DAILY telmisartan 20 mg PO DAILY trazodone 25 mg PO BEDTIME vitamin B complex 1 tab PO DAILY Tobacco use date assessed: 02/04/25 Fall risk assessment: No Falls in past year Last assessed Fall Risk: 02/04/25 Dental Screening Dental Screen Date: 02/04/25 Did you have a dental visit in the last 12 months?: Yes Did you have a dental problem in the last 6 months where you did not have access to dental care?: No Was dental information given to patient?: Patient has dentist HPI Reschedule review bloodtest HPI Details Pt presents for f/u HTN, A fib, hyperlipid, stable on meds. Patient is established with neon molder for AFib. She complains of shrinking her lower back radiating compression of her abdomen and her ribs taking into her pelvis when sitting. Patient had 4 lumbar spine surgeries creating fusion of her whole lumbar spine and is established with orthopedic surgeon at [facility]. She sees him annually. Patient would like to try physical therapy and wants to be referred to desktop publisher. Patient is established with cattle brander for osteoporosis but has not been taking any medications. She is due for a repeat DEXA next January. [facility] Medical History (Updated 02/04/25 @ 13:26 by Della Ellison MD) Elevated LFTs Osteoporosis A-fib HTN (hypertension) Neuropathy, peripheral AAA (abdominal aortic aneurysm) Heart murmur Hypercalcemia Cataracts, bilateral IFG (impaired fasting glucose) Hyperlipidemia Glaucoma GERD (gastroesophageal reflux disease) Celiac disease Surgical History (Updated 02/04/25 @ 13:26 by Della Ellison MD) History of parathyroid surgery History of carpal tunnel repair History of knee replacement, total Hx of appendectomy Hx of colonoscopy History of esophagogastroduodenoscopy (EGD) H/O lumbosacral spine surgery Hx of cataract surgery H/O hernia repair Family History Mother Heart problem Father Heart problem Brother Substance use disorder Social History Housing: House Alcohol intake: current Alcohol intake frequency: a few times a week Alcohol type: wine Patient Tobacco Use Status: Former Tobacco user e-Cigarette/Vaping Use: Never Used service: No Current occupational status: retired Cognitive needs: No Hearing needs: No Vision needs: No Female Reproductive History Menstrual Age of Menarche: 13 Questionnaire PHQ-9 Over the last 2 weeks, how often have you been bothered by any of the following problems? 1. Little interest or pleasure in doing things: not at all 2. Feeling down, depressed, or hopeless: not at all 3. Trouble falling or staying asleep, or sleeping too much: several days 4. Feeling tired or having little energy: several days 5. Poor appetite or overeating: not at all 6. Feeling bad about yourself - or that you are a failure or have let yourself or your family down: not at all 7. Trouble concentrating on things, such as reading the newspaper or watching television: not at all 8. Moving or speaking so slowly that other people could have noticed. Or the opposite - being so fidgety or restless that you have been moving around a lot more than usual: not at all 9. Thoughts that you would be better off or of hurting yourself in some way: not at all Total score: 2 Depression Screening Interpretation: Negative Depression Screening Done: Yes 37017 - PHQ-9 Billing: Yes Source: Developed by Drs. Lavell Serrano, Margoth Winslow, Alonzo Veras and colleagues, with an educational min from [employer]. Thrive Questionnaire Date Thrive assessed: 02/04/25 I am a: Patient What is your living situation today?: I have a steady place to live Within the past 12 months, did the food you bought not last and you didn't have the money to get more?: Never true Within the past 12 months, did you worry whether your food would run out before you got money to buy more?: Never true Do you have trouble paying for medicines?: No Do you have trouble getting transportation to medical appointments?: No Do you have trouble paying your heating and electricity bill?: No Do you have trouble taking care of your child, family member or friend?: No Do you have trouble with day-to-day activities such as bathing, preparing meals, shopping, managing finances, etc.?: No Are you currently unemployed and looking for a job?: No Are you interested in more education?: No Please select the resources that you would like help with: Paying for medicine Currently or been in a relationship where the following occur: No concerns reported THRIVE Score: 0 AUDIT C Alcohol Use Questionnaire (AUDIT-C) 1. How often do you have a drink containing alcohol?: 2-3 times a week 2. How many drinks containing alcohol do you have on a typical day when you are drinking?: 1 or 2 3. How often do you have six or more drinks on one occasion?: Never Total Score: 3 TAE-7 AMB Questionnaire TAE-7 Date TAE - 7 assessed: 02/04/25 Feeling nervous, anxious, or on edge: 1 = Several days Not being able to stop or control worryin = Not at all Worrying too much about different things: 1 = Several days Trouble relaxin = Not at all Being so restless that it is hard to sit still: 0 = Not at all Becoming easily annoyed or irritable: 0 = Not at all Feeling afraid as if something awful might happen: 0 = Not at all Total TAE-7 score (0-4 normal; 5-9 mild; 10-14 moderate; 15-21 severe): 2 Source: Developed by Drs. Lavell Serrano, Margoth Winslow, Alonzo Veras and colleagues, with an educational min from [employer]. TAE-7 Assessment Billing TAE-7 Assessment Tool: TAE-7 Assessment 84226 Review of Systems Const All systems reviewed & are unremarkable except as noted in HPI and below Reports no additional complaints Eyes Reports no additional complaints ENT Reports no additional complaints Card Reports no additional complaints Resp Reports no additional complaints GI Reports no additional complaints Physical exam (Primary Care) Vital Signs: Last Vital Signs Temp 98.1 F 02/04/25 12:11 Pulse 64 02/04/25 12:11 Resp 18 02/04/25 12:11 BP 122/74 02/04/25 12:11 Pulse Ox 97 02/04/25 12:11 Oxygen Delivery Method Room Air 02/04/25 12:11 BMI result Body Mass Index 24.9 Tobacco/Smoking Status: Tobacco use Status Tobacco use date assessed 02/04/25 02/04/25 12:12 Patient Tobacco Use Status Former Tobacco user 02/04/25 12:12 e-Cigarette/Vaping Use Never Used 02/04/25 12:12 PHQ-9: PHQ-9 Score PHQ-9: Total score 2 02/04/25 12:40 Depression Screening Interpretation: Negative Thrive Assessment: Date of Thrive Assessment Date Thrive assessed 02/04/25 02/04/25 12:20 Currently or been in a relationship where the following occur: No concerns reported Const General: no acute distress HENMT Head: Yes normal to inspection Face and sinus: Yes normal facial exam Mouth: Normal oral and palatal mucosa present Eyes General: appearance normal, both eyes and all related structures Neck Neck: Yes no lymphadenopathy and Yes supple Resp Effort & Inspection: normal respiratory effort Auscultation: clear to auscultation bilaterally Cardio Rhythm: regular rhythm Heart sounds: S1 normal heart sound present and S2 normal heart sound present GI Inspection: Yes normal to inspection Palpation (GI): Soft to palpation Percussion: Yes normal to percussion Auscultation: normal bowel sounds Coding Level of Care Code Est Pt Level 4 (83954) Complex EM visit Add On G2211 Diagnoses Lower back pain M54.50 A-fib I48.91 Infrarenal abdominal aortic aneurysm (AAA) without rupture I71.43 Abdominal aorta location: infrarenal aorta Presence of rupture: without rupture Osteoporosis M81.0 H/O lumbosacral spine surgery Z98.890 Additional Codes TAE-7 Assessment Billing - TAE-7 Assessment Tool: TAE-7 Assessment 59440 ([id number]) PHQ-9 - 75343 - PHQ-9 Billing: Yes ([id number]) Assessment & Plan Assessment & Plan (1) Lower back pain: Code(s): M54.50 - Low back pain, unspecified Category: Medical Plan: Referred to physical therapy, patient will follow-up with orthopedic surgeon (2) A-fib: Comment: f/u with cardiology Dr. Gutierrez Code(s): I48.91 - Unspecified atrial fibrillation Category: Medical Plan: Continue current medications (3) AAA (abdominal aortic aneurysm): Comment: 3.4 cm, annual US, neon molder schedules an ultrasound Code(s): I71.4 - Abdominal aortic aneurysm, without rupture Category: Medical Qualifiers: Abdominal aorta location: infrarenal aorta Presence of rupture: without rupture Qualified Code(s): I71.43 - Infrarenal abdominal aortic aneurysm, without rupture Plan: Follow-up with Cardiology for annual ultrasound (4) Osteoporosis: Comment: DEXA 12/21 T score -2.7, f/u with Endo, Dr. Gay, started on Ca and vit D 05/24, DEXA T score -3.2 2023 s/p parathyroidectomy 2023 Code(s): M81.0 - Age-related osteoporosis without current pathological fracture Category: Medical Plan: Continue vitamin-D calcium and weight-bearing exercises follow-up with endocrinology next year (5) H/O lumbosacral spine surgery: Comment: 4 lumbar surgeries, first 03/2019, last 10/2019 in [place], annual follow-up with orthopedic surgeon at [facility] Code(s): Z98.890 - Other specified postprocedural states Category: Surgical Plan: Referred to physical therapy follow-up with the surgeon Orders: Orders Comprehensive Cades. Panel Fast 9 Months E55.9 - Vitamin D deficiency, unspecified, E78.5 - Hyperlipidemia, unspecified, I10 - Essential (primary) hypertension, I48.91 - Unspecified atrial fibrillation, M81.0 - Age-related osteoporosis without current pathological fracture PT Evaluation and Treatment Today M54.50 - Low back pain, unspecified Complete Blood Count Auto Diff 9 Months E55.9 - Vitamin D deficiency, unspecified, E78.5 - Hyperlipidemia, unspecified, I10 - Essential (primary) hypertension, I48.91 - Unspecified atrial fibrillation, M81.0 - Age-related osteoporosis without current pathological fracture Hemoglobin A1c 9 Months E55.9 - Vitamin D deficiency, unspecified, E78.5 - Hyperlipidemia, unspecified, I10 - Essential (primary) hypertension, I48.91 - Unspecified atrial fibrillation, M81.0 - Age-related osteoporosis without current pathological fracture Lipid Panel 9 Months E55.9 - Vitamin D deficiency, unspecified, E78.5 - Hyperlipidemia, unspecified, I10 - Essential (primary) hypertension, I48.91 - Unspecified atrial fibrillation, M81.0 - Age-related osteoporosis without current pathological fracture TSH reflex Free T4 9 Months E55.9 - Vitamin D deficiency, unspecified, E78.5 - Hyperlipidemia, unspecified, I10 - Essential (primary) hypertension, I48.91 - Unspecified atrial fibrillation, M81.0 - Age-related osteoporosis without current pathological fracture Vitamin D 25-OH Total 9 Months E55.9 - Vitamin D deficiency, unspecified, E78.5 - Hyperlipidemia, unspecified, I10 - Essential (primary) hypertension, I48.91 - Unspecified atrial fibrillation, M81.0 - Age-related osteoporosis without current pathological fracture Medications: Changed From apixaban (Eliquis) 5 mg PO BID To Eliquis (apixaban) 5 mg PO BID 180 tabs 3RF NS
--- OUTSIDE RECORDS SUMMARY | 2025-02-04 12:46 | XMS_ITS | Clinical Summary ---
Author Organization [facility] Address [address] [place] [address] Phone Care Team Providers Care Candle Wicker Name Role Phone Unavailable Primary Care Provider Unavailabl e Social History Tobacco Use Types Packs/Day Years Used Date Smoking Tobacco: Never Assessed Comments Unknown Sex and Gender Information Value Date Recorded Sex Assigned at Not on file Legal Sex Female 2:54 PM EDT Gender Identity Not on file Sexual Orientation Not on file Plan of Treatment Not on file Medical Devices Not on file Insurance MEDICARE PPO BLUE REPLACEMENT MEDICARE PPO BLUE REPLACEMENT MEDICARE PPO BLUE REPLACEMENT MEDICARE PPO BLUE REPLACEMENT MEDICARE PPO BLUE REPLACEMENT MEDICARE PPO BLUE REPLACEMENT MEDICARE PPO BLUE REPLACEMENT MEDICARE PPO BLUE REPLAC[place] P[place] BLUE REPLACEMENT Additional Source Comments The information contained in this document represents components of the legal health record. It is not the complete legal health record.[facility]
--- OUTSIDE RECORDS SUMMARY | 2025-02-04 12:46 | XMS_ITS | Encounter Summary ---
Author Organization [facility] Address [address] [place] [address] Care Team Providers Care Automatic Machines Supervisor Name Role Phone Della Ellison MD Primary Care Provider Benjamín Devries MD Unavailable [phone] Benjamín Devries MD Unavailable [phone] Reason for Visit * Reason Comments samples of Eliquis Encounter Details Date Type Department Care Team (Late st Contact Info) Description 09/15/2024 Telephone [facility] Cardiology [address] [place] [phone] Benjamín Devries MD [address] [place] [address] [place] [address] [phone] samples of Eliquis Social History Tobacco Use Types Packs/Day Years [...] PM EDT documented as of this encounter Miscellaneous Notes * Telephone Encounter - Mariana Sheets MA - 09/25/2024 11:22 AM EDT I called and spoke to Giovana, I read the message from the provider. She asked if she called and waited two weeks to call again could she order picker/assembler a months worth at that time. I explained that we only dotwo weeks at a time, you can order picker/assembler the medication and then two weeks later call for more samples.We can not hold medication for a month. documented in this encounter Plan of Treatment Upcoming Encounters Date Type Department Care Team (Late st Contact Info) Description 11/06/2025 2:00 PM EDT Office Visit [facility] Cardiology [address] [place] [phone] Benjamín Devries MD [address] [place] [phone] documented as of this encounter Visit Diagnoses Diagnosis PAF (paroxysmal atrial fibrillation) (03/25 identified on ILR history of retinal artery embolization) Atrial fibrillation documented in this encounter Care Teams Automatic Machines Supervisor Relationship Specialty Start Date End Date Della Ellison MD [address] [place] [id number] PCP - General 03/21/21 Benjamín Devries MD [address] [place] [phone] Cardiovascular Disease 03/14/22 Benjamín Devries MD [address] [place] [phone] Primary Marine Extension Agent Cardiovascular Disease 08/23/23 documented as of this encounter
--- OUTSIDE RECORDS SUMMARY | 2025-02-04 12:47 | XMS_ITS | Clinical Summary ---
Author Organization [facility] Address [address] [place] [address] Care Team Providers Care Pizza Delivery Driver Name Role Phone Rachel Brunoth Sophie AMATO Primary Care Provider [phone] Allergies Active Allergy Reactions Criticality Noted Date [...] - 1-dose 75+ series) 2021 Influenza Vaccine (#1) 2025 0, 03/18/2020, 05/01/2018, Additional history exists DTap / Tdap / Td (2 - Td or Tdap) 11/21/2027 11/20/2017 (Declined), 04/26/2015 Hepatitis C Screening Completed 11/13/2018 Hepatitis B Vaccines Aged Out No long er eligible based on patient's age to complete this topic RSV Ped < 20 months Aged Out No longe r eligible based on patient's age to complete this topic Care Teams Pizza Delivery Driver Relationship Specialty Start Date End Date Beti Bruno DO PCP - General Family Medicine 11/21/17
--- OUTSIDE RECORDS SUMMARY | 2025-02-04 12:47 | XMS_ITS | Patient Health Record ---
Author Organization [facility] Address [address] [place] [address] Care Team Providers Care Temple Meat Cutter Name Role Phone Della Ellison MD Primary Care Provider Lavell Landeros Unavailable [phone] Allergies Allergen (clinical drug ingredient) Drug/Non Drug [...] Problem Status W/U Status Risk Notes Problem [id number] Epigastric abdominal pain (R10.13) Active confirmed Problem 266223436 Encounter for screening for malignant neoplasm of colon (Z12.11) Active confirmed Problem 549118830 Celiac disease (K90.0) Active confirmed Problem 142374256 Gastroesophageal reflux disease without esophagitis (K21.9) Active confirmed Problem 300958898 Barretts esophag us without dysplasia (K22.70) Active confirmed Problem Gastroesophageal reflux (K21.9) Active confirmed Problem Diverticulosis of sigmoid colon (716936941) Diverticulosis of sigmoid colon (K57.30) Active confirmed [...] Insured Coverage Start Date Coverage End Date [facility] [address] [place], [place] [id number] CHRISTIANMORGAN Self - patient is the insured MEDICARE OF [place] [address] [place] [address] [id number] MARISA CHRISTIANIL Self - patient is the insured Medical (General) History Medical History History ICD Code CELIAC DISEASE-Dx'd in 2009- -neg labs in 06/2013; normal duodenal biopsies in 2016 COLONOSCOPY WAS NEGATIVE IN January and in 2002 JUDD'S ESOPHAGUS-Dx'd in 2009 ARTHRITIS/Fibromyalgia Denies UT,DM,CVA,Lung disease,renal dise ase Hypercholesterolemia Upper endoscopy 07-14-13--sma [...] 4 back surgeries--03/2019-10/01 020--Lumbar spine-Dr. Saldana in [place]--[facility] [place] [place] Hospitalization History Reason Date(Month/Year) 4 back surgeries [phone]
--- OUTSIDE RECORDS SUMMARY | 2025-02-04 12:47 | XMS_ITS | Encounter Summary ---
Author Organization [facility] Address [address] [place] [address] Care Team Providers Care Ferruler Name Role Phone Beti Bruno DO Primary Care Provider + Reason for Visit * Reason Onset Date Comments Medication Problem 01/23/2025 Encounter Details Date Type Department Care Team (Late st Contact Info) Description 01/23/2025 Telephone [facility] Cardiology [address] [place] [phone] Phani Gutierrez MD [address] [place] [address] [address] [place] [address] Medication Problem Social History Tobacco Use Types Packs/Day Years Used Date Smoking Tobacco: Former Smokeless Tobacco: Never Alcohol Use Standard Drinks/Week Comments Yes 4 (1 standard drink = 0.6 oz pur e alcohol) Comments Unknown Sex and Gender Information Value Date Recorded Sex Assigned at Not on file Legal Sex Female 6:27 AM EST Gender Identity Not on file Sexual Orientation Not on file documented as of this encounter Progress Notes * Amy Cortez RN - 01/23/2025 1:59 PM EDT The patient is pending a new patient appointment with Dr. Gutierrez on 03/31/25. She has not been seen in the office previously. I spoke to the patient and advised her we cannot provide Eliquis samples to her at this time. She voiced understanding. * Zoe Rodney - 01/23/2025 1:32 PM EDT Patient states that she is getting samples of Eliquis 5 mg 1 BID from her doctor in [facility]. She is unable to make the drive and would like to get samples from [facility]. She is unable to afford hercopay for her prescription. Please call. documented in this encounter Plan of Treatment Upcoming Encounters Date Type Department Care Team (Late st Contact Info) Description 03/31/2025 8:20 AM EDT Office Visit [facility] Cardiology [address] [place] [phone] Phani Gutierrez MD [address] [place] [address] [address] [place] [address] documented as of this encounter Visit Diagnoses Not on filedocumented in this encounter Care Teams Ferruler Relationship Specialty Start Date End Date Beti Bruno DO [address] [facility] [address] [place] [address] PCP - General Family Medicine 11/21/17 documented as of this encounter
== END 2025-02-04 13:11 | disposition home or self-care (01) ==
LOC: HO.HMCC 12:03
PROVIDERS: PCP Internal Medicine; Visit Provider Internal Medicine
DX: M54.50 Low back pain, unspecified (principal); I48.91 Unspecified atrial fibrillation; I71.43 Infrarenal abdominal aortic aneurysm, without rupture; M81.0 Age-related osteoporosis without current pathological fracture; Z98.890 Other specified postprocedural states

== ENCOUNTER → 2025-02-04 12:02 | Outpatient (BNVA) | payer MEDICARE, SELFPAY | PROVIDERS: PCP Internal Medicine; Visit Provider Internal Medicine | DX: I10 Essential (primary) hypertension (principal); I48.91 Unspecified atrial fibrillation; E78.5 Hyperlipidemia, unspecified; M54.50 Low back pain, unspecified; I71.43 Infrarenal abdominal aortic aneurysm, without rupture; M81.0 Age-related osteoporosis without current pathological fracture; E55.9 Vitamin D deficiency, unspecified; Z98.1 Arthrodesis status; Z79.899 Other long term (current) drug therapy; Z98.890 Other specified postprocedural states | CPT/HCPCS: 96127; 99212 ==

== ENCOUNTER 2025-04-08 09:14 | Outpatient (AMB) | payer MEDICARE, SELFPAY ==
--- NOTE | 2025-04-08 09:22 | MHC.PC.OV ---
Vital Signs 04/08/25 09:23 Height 5 ft 7.2 in Weight 155 lb BMI 24.1 BP 120/78 Blood Pressure Location Lt brachial Position Sitting Respiration 18 Pulse 70 Pulse Source Pulse Oximeter Temp 981 F H Temp Source Oral Pulse Oximetry (%) 98 Oxygen Delivery Method Room Air Intake Visit Reasons: diarrhea x 3 weeks Intake Note: Pt is here today for a sick visit. Pt c/o diarrhea for almost a month now. Allergies gluten Allergy (Verified 04/08/25 09:24) Gastrointestinal Upset Tobacco use date assessed: 04/08/25 Fall risk assessment: No Falls in past year Last assessed Fall Risk: 04/08/25 Dental Screening Dental Screen Date: 02/04/25 HPI diarrhea x 3 weeks HPI Details Pt presents for 3 weeks watery diarrhea on and off up to 3 times a day usually after meals or drinking coffee. Patient denies abdominal pain fever chills nausea vomiting hematochezia or melena. Patient denies any change in her diet or recent traveling. She has been eating more fruits than usual because of the season. Hypertension is controlled on current medications [facility] Medical History Elevated LFTs Osteoporosis A-fib HTN (hypertension) Neuropathy, peripheral AAA (abdominal aortic aneurysm) Heart murmur Hypercalcemia Cataracts, bilateral IFG (impaired fasting glucose) Hyperlipidemia Glaucoma GERD (gastroesophageal reflux disease) Celiac disease Surgical History History of parathyroid surgery History of carpal tunnel repair History of knee replacement, total Hx of appendectomy Hx of colonoscopy History of esophagogastroduodenoscopy (EGD) H/O lumbosacral spine surgery Hx of cataract surgery H/O hernia repair Family History Mother Heart problem Father Heart problem Brother Substance use disorder Social History Housing: House Alcohol intake: current Alcohol intake frequency: a few times a week Alcohol type: wine Patient Tobacco Use Status: Former Tobacco user e-Cigarette/Vaping Use: Never Used service: No Current occupational status: retired Cognitive needs: No Hearing needs: No Vision needs: No Female Reproductive History Menstrual Age of Menarche: 13 Questionnaire PHQ-9 Over the last 2 weeks, how often have you been bothered by any of the following problems? 1. Little interest or pleasure in doing things: not at all 2. Feeling down, depressed, or hopeless: not at all 3. Trouble falling or staying asleep, or sleeping too much: several days 4. Feeling tired or having little energy: several days 5. Poor appetite or overeating: not at all 6. Feeling bad about yourself - or that you are a failure or have let yourself or your family down: not at all 7. Trouble concentrating on things, such as reading the newspaper or watching television: not at all 8. Moving or speaking so slowly that other people could have noticed. Or the opposite - being so fidgety or restless that you have been moving around a lot more than usual: not at all 9. Thoughts that you would be better off or of hurting yourself in some way: not at all Total score: 2 Depression Screening Interpretation: Negative Depression Screening Done: Yes Source: Developed by Drs. Lavell Serrano, Margoth Winslow, Alonzo Veras and colleagues, with an educational min from [employer]. Thrive Questionnaire Date Thrive assessed: 02/04/25 I am a: Patient What is your living situation today?: I have a steady place to live Within the past 12 months, did the food you bought not last and you didn't have the money to get more?: Never true Within the past 12 months, did you worry whether your food would run out before you got money to buy more?: Never true Do you have trouble paying for medicines?: No Do you have trouble getting transportation to medical appointments?: No Do you have trouble paying your heating and electricity bill?: No Do you have trouble taking care of your child, family member or friend?: No Do you have trouble with day-to-day activities such as bathing, preparing meals, shopping, managing finances, etc.?: No Are you currently unemployed and looking for a job?: No Are you interested in more education?: No Please select the resources that you would like help with: Paying for medicine Currently or been in a relationship where the following occur: No concerns reported THRIVE Score: 0 TAE-7 AMB Questionnaire TAE-7 Date TAE - 7 assessed: 02/04/25 Feeling nervous, anxious, or on edge: 1 = Several days Not being able to stop or control worryin = Not at all Worrying too much about different things: 1 = Several days Trouble relaxin = Not at all Being so restless that it is hard to sit still: 0 = Not at all Becoming easily annoyed or irritable: 0 = Not at all Feeling afraid as if something awful might happen: 0 = Not at all Total TAE-7 score (0-4 normal; 5-9 mild; 10-14 moderate; 15-21 severe): 2 Source: Developed by Drs. Lavell Serrano, Margoth Winslow, Alonzo Veras and colleagues, with an educational min from [employer]. Review of Systems Const All systems reviewed & are unremarkable except as noted in HPI and below ENT Reports no additional complaints Card Reports no additional complaints Resp Reports no additional complaints GI Reports no additional complaints Reports no additional complaints Physical exam (Primary Care) Vital Signs: Last Vital Signs Temp 981 F H 04/08/25 09:23 Pulse 70 04/08/25 09:23 Resp 18 04/08/25 09:23 BP 120/78 04/08/25 09:23 Pulse Ox 98 04/08/25 09:23 Oxygen Delivery Method Room Air 04/08/25 09:23 BMI result Body Mass Index 24.1 Tobacco/Smoking Status: Tobacco use Status Tobacco use date assessed 04/08/25 04/08/25 09:24 Patient Tobacco Use Status Former Tobacco user 04/08/25 09:22 e-Cigarette/Vaping Use Never Used 04/08/25 09:22 PHQ-9: PHQ-9 Score PHQ-9: Total score 2 04/08/25 09:24 Depression Screening Interpretation: Negative Thrive Assessment: Date of Thrive Assessment Date Thrive assessed 02/04/25 04/08/25 09:22 Currently or been in a relationship where the following occur: No concerns reported Const General: no acute distress HENMT Mouth: Normal oral and palatal mucosa present Neck Neck: Yes supple Resp Effort & Inspection: normal respiratory effort Auscultation: clear to auscultation bilaterally Cardio Rhythm: regular rhythm Heart sounds: S1 normal heart sound present and S2 normal heart sound present GI Inspection: Yes normal to inspection Palpation (GI): Soft to palpation Percussion: Yes normal to percussion Auscultation: normal bowel sounds Coding Level of Care Code Est Pt Level 4 (27633) Diagnoses Diarrhea R19.7 Fatigue R53.83 HTN (hypertension) I10 Assessment & Plan Assessment & Plan (1) Diarrhea: Code(s): R19.7 - Diarrhea, unspecified Category: Medical Plan: For chronic diarrhea comprehensive panel and CBC stool studies will be obtained. Patient was advised to follow low residual diet, avoid fresh vegetables fruits and try Citrucel and Imodium PRN. She is established with a livestock dealer and will schedule an appointment if her symptoms persist (2) Fatigue: Code(s): R53.83 - Other fatigue Category: Medical Plan: Check blood work (3) HTN (hypertension): Code(s): I10 - Essential (primary) hypertension Category: Medical Plan: Continue current medications Orders: Orders GI Panel Today R19.7 - Diarrhea, unspecified Complete Blood Count Auto Diff Today R19.7 - Diarrhea, unspecified Comprehensive Met. Panel Today R19.7 - Diarrhea, unspecified Leukocytes Stool Qualitative Today R19.7 - Diarrhea, unspecified TSH reflex Free T4 Today R19.7 - Diarrhea, unspecified IRON PROFILE Today R53.83 - Other fatigue Erythrocyte Sedimentation Rate Today R19.7 - Diarrhea, unspecified
[2025-04-08 09:23] VITALS: BP 120/78; PULSE 70; RESP 18; TEMP 527.2; TEMP 981; O2SAT 98; BMI 24.1
== END 2025-04-08 10:15 | disposition home or self-care (01) ==
LOC: HO.HMCC 09:15
PROVIDERS: PCP Internal Medicine; Visit Provider Internal Medicine
DX: R19.7 Diarrhea, unspecified (principal); R53.83 Other fatigue; I10 Essential (primary) hypertension

== ENCOUNTER → 2025-04-08 09:14 | Outpatient (BNVA) | payer MEDICARE, SELFPAY | PROVIDERS: PCP Internal Medicine; Visit Provider Internal Medicine | DX: R19.7 Diarrhea, unspecified (principal); R53.83 Other fatigue; I10 Essential (primary) hypertension; Z13.31 Encounter for screening for depression | CPT/HCPCS: 96127; 99212 ==

== ENCOUNTER 2025-04-14 09:02 | Outpatient (REF) | payer MEDICARE, SELFPAY ==
--- OUTSIDE RECORDS SUMMARY | 2024-05-27 12:29 | XMS_ITS ---
Author Organization [facility] Billing Info Address [address] [place] [id number] Care Team Providers Care Vehicle Inspector Name Role Phone MAGDIEL VELASQUEZ Primary Care Provider REASON FOR VISIT Care Gaps Social History Tobacco Use: Social History Observation Description Date Details (start date - stop date) Former Smoker NA - NA Tobacco Status: Question Answer Notes Patient is a former smoker Section Notes: Lives with partner, fish , travels to [place] every 6 months. Encounters Encounter Location Date Provider Diagnosis [id number] [facility] [address] [address] 05/27/2024 MAGDIEL VELASQUEZ Plan Of Treatment No Information Progress Notes * CHRISTIANDarrenOB:1945 (78 yo F)Acc No.[id number]:05/27/2024 Patient: Giovana MCCARTHY :1945 A ge:78 Y S ex:Female Address:[address] [place] [address], [id number] Subjective: * Chief Complaints: * C are Gaps * Medical History: * Surgical History: * Hospitalization/Major Diagno stic Procedure: * Social History: A lcohol Use Patient u ses alcohol 2-3 glasses of wine a week. T obacco Status Patient is a former smoker Quit in: q uit 30 years ago E xercise: water aerobic 2-3 times a week and walk.. M arital Status: . * DO NOT USE * Tobacco Status (CQW) Patient is F ormer smoker A mbulatory Status : i s independent sometimes uses a cane C affeine: coffee, per day, tea, occasional. D rugs: none. L [place] with partner, fish, travels to [place] every 6 months. * Medications: Objective: * Vitals: * Physical Examination: Assessment: Plan: * Treatment: * Procedure Codes: * Preventive Medicine: Johnson PAF (Patient Assessment Form): F all Risk Assessment Date Screening Completed: 07/27/2023 Increased Fall Risk factors: N o fall risk factors History Falls in Past Year: N o falls in the past year * true * Date: Generated for Frank french/Andreia/Monalisaitting on: 09:41 AM EDT
--- OUTSIDE RECORDS SUMMARY | 2025-04-14 09:40 | XMS_ITS | Encounter Summary ---
Author Organization [facility] Address [address] [place] [address] Care Team Providers Care Terrazzo Finisher Name Role Phone Della Ellison MD Primary Care Provider Benjamín Devries MD Unavailable [phone] Benjamín Devries MD Unavailable [phone] Encounter Details Date Type Department Care Team (Late st Contact Info) Description 08/25/2024 Scanned Document [facility] Heart & Vascular [place] - Electrophysiology [address] [place] [address] Benjamín Devries MD [address] [place] [address] Social History Tobacco Use Types Packs/Day Years [...] Description 11/06/2025 2:00 PM EDT Office Visit [facility] Cardiology [place] [address] [place] [address] Benjamín Devries MD [address] [place] [address] documented as of this encounter Visit Diagnoses Not on filedocumented in this encounter Care Teams Terrazzo Finisher Relationship Specialty Start Date End Date Della Ellison MD [address] [place] [address] PCP - General 03/21/21 Benjamín Devries MD [address] [place] [address] Cardiovascular Disease 03/14/22 Benjamín Devries MD [address] [place] [address] Primary Alliance Director Cardiovascular Disease 08/23/23 documented as of this encounter
--- OUTSIDE RECORDS SUMMARY | 2025-04-14 09:40 | XMS_ITS | Encounter Summary ---
Author Organization [facility] Address [address] [place] [address] Care Team Providers Care Cook Fish Eggs Name Role Phone Della Ellison MD Primary Care Provider Benjamín Devries MD Unavailable [phone] Benjamín Devries MD Unavailable [phone] Reason for Visit * Reason Comments Advice Only Encounter Details Date Type Department Care Team (Late st Contact Info) Description 05/16/2021 Telephone [facility] Heart & Vascular [place] - Electrophysiology [address] [place] [address] Moe Barraza MD [address] [place], [place] [address] Advice Only Social History Tobacco Use Types Packs/Day Years Used Date Smoking Tobacco: Former Smokeless Tobacco: Never Comments Unknown Sex and Gender Information Value Date Recorded Sex Assigned at Female 04/17/2024 9:08 PM EDT Legal Sex Female 6:26 PM EST Gender Identity Female 04/17/2024 9:08 PM EDT Sexual Orientation Heterosexual (straight) 04/17 9:08 PM EDT documented as of this encounter Miscellaneous Notes * Telephone Encounter - Renee Shah - 05/16/2021 1:21 PM EST I have not. Maybe Love did? * Telephone Encounter - Irais Muniz RN - 05/16/2021 11:29 AM EST Pt called the office with regards ILR procedure schedule for 05/19. Per pt no one has contacted herto go over the specific of the procedure, such as all the FAQ, length of procedure, risks involved,anaesthesia, incision etc. Advised pt that she will be contacted 2 days prior to the procedure, shestated that she wanted a call sooner. documented in this encounter Plan of Treatment Upcoming Encounters Date Type Department Care Team (Late st Contact Info) Description 11/06/2025 2:00 PM EDT Office Visit [facility] Cardiology [address] [place] [address] Benjamín Devries MD [address] [place] [phone] documented as of this encounter Visit Diagnoses Not on filedocumented in this encounter Care Teams Cook Fish Eggs Relationship Specialty Start Date End Date Della Ellison MD [address] [place] [phone] PCP - General 03/21/21 Benjamín Devries MD [address] [place] [address] Cardiovascular Disease 03/14/22 eBnjamín Devries MD [address] [place] [address] Primary 3D Animator Cardiovascular Disease 08/23/23 documented as of this encounter
--- OUTSIDE RECORDS SUMMARY | 2025-04-14 09:40 | XMS_ITS | Clinical Summary ---
Author Organization [facility] Address [address] [place] [address] Phone Care Team Providers Care Repairer Welding Systems And Equipment Name Role Phone Unavailable Primary Care Provider [...] It is not the complete legal health record.[facility]
--- OUTSIDE RECORDS SUMMARY | 2025-04-14 09:40 | XMS_ITS | Encounter Summary ---
Author Organization [facility] Address [address] [place] [address] Care Team Providers Care Mixing And Dispensing Supervisor Name Role Phone Della Ellison MD Primary Care Provider Benjamín Devries MD Unavailable [phone] Benjamín Devries MD Unavailable [phone] Reason for Visit * Reason Comments samples of Eliquis Encounter Details Date Type Department Care Team (Late st Contact Info) Description 09/15/2024 Telephone [facility] Cardiology [address] [place] [phone] Benjamín Devries MD [address] [place] [address] [place] [phone] samples of Eliquis Social History Tobacco Use [...] two weeks to call again could she cigar packer and picker a months worth at that time. I explained that we only dotwo weeks at a time, you can cigar packer and picker the medication and then two weeks later call for more samples.We can not hold medication for a month. 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
--- OUTSIDE RECORDS SUMMARY | 2025-04-14 09:41 | XMS_ITS | Clinical Summary ---
Author Organization [facility] Address [address] [place] [address] Phone Care Team Providers Care Data Visualization Developer Name Role Phone Della Ellison MD Primary Care Provider [phone] Allergies No known active allergies Medications VITAMIN B COMPLEX ORAL Take 1 tablet by mouth 1 (one) time each day. Active B complex-vitamin C-folic acid (CLOTILDE-MARY) 1-60-300 mg-mg-mcg tablet Take 1 tablet by mouth 1 (one) time each day with breakfast. Active vit A/C/E ac/ZnOx/cupric oxide (EYE VITAMIN AND MINERALS ORAL) Take 1 tablet by mouth 2 (two) times a day. Active traZODone (DESYREL) 50 mg tablet Take 0.5 tablets (25 mg total) by mouth at bedtime. Active calcium citrate/vitamin D3 (CITRACAL PLUS D ORAL) Take 1 tablet by mouth 2 (two) times a day. Active multivit-min/iro n/FA/vit K/lut (CENTRUM SILVER WOMEN ORAL) Take 1 tablet by mouth 1 (one) time each day. Active famotidine (PEPCID) 40 mg tablet Take 1 tablet (40 mg total) by mouth at bedtime. Active cholecalciferol (VITAMIN D-3) 50 mcg (2,000 unit) tablet Take 1 tablet (2,000 Units total) by mouth 1 (one) time each day. Active diphenhydrAMINE- acetaminophen (TYLENOL PM) 25-500 mg per tablet Take 1 tablet by mouth at bedtime. Active apixaban (ELIQUIS) 5 mg tabletIndication s:Atrial fibrillation, unspecified type (CMS/HCC V24, CMS/HCC V28) Take 1 tablet (5 mg total) by mouth 2 (two) times a day. 180 tablet 3 5 Active ezetimibe (ZETIA) 10 mg tabletIndication s:Atrial fibrillation, unspecified type (CMS/HCC V24, CMS/HCC V28) Take 1 tablet (10 mg total) by mouth 1 (one) time each day. 90 tablet 3 5 Active metoprolol succinate (TOPROL-XL) 25 mg 24 hr tabletIndication s:Atrial fibrillation, unspecified type (CMS/HCC V24, CMS/HCC V28) Take 1 tablet (25 mg total) by mouth 1 (one) time each day. Do not crush or chew. 90 each 3 5 Active rosuvastatin (CRESTOR) 40 mg tabletIndication s:Atrial fibrillation, unspecified type (CMS/HCC V24, CMS/HCC V28) Take 1 tablet (40 mg total) by mouth 1 (one) time each day. 90 each 3 5 Active telmisartan (MICARDIS) 20 mg tabletIndication s:Atrial fibrillation, unspecified type (CMS/HCC V24, CMS/HCC V28) Take 1 tablet (20 mg total) by mouth 1 (one) time each day. 90 tablet 3 5 Active metoprolol succinate (TOPROL-XL) 25 mg 24 hr tablet Take 1 tablet (25 mg total) by mouth 1 (one) time each day. Do not crush or chew. 03/31/20 25 Discontinu ed(Reorder ) rosuvastatin (CRESTOR) 40 mg tablet Take 1 tablet (40 mg total) by mouth 1 (one) time each day. 03/31/20 25 Discontinu ed(Reorder ) apixaban (ELIQUIS) 5 mg tablet Take 1 tablet (5 mg total) by mouth 2 (two) times a day. 03/31/20 25 Discontinu ed(Reorder ) ezetimibe (ZETIA) 10 mg tablet Take 1 tablet (10 mg total) by mouth 1 (one) time each day. 03/31/20 25 Discontinu ed(Reorder ) telmisartan (MICARDIS) 20 mg tablet Take 1 tablet (20 mg total) by mouth 1 (one) time each day. 03/31/20 25 Discontinu ed(Reorder ) Active Problems Problem Noted Date Diagnosed Date Peripheral vascular disease ([facility] V24) 2024 Assessment & Plan (03/31/2025 1:08 PM EDT): Patient with a history of moderate disease involving the carotids. Explained to her that with 50% or less lesions there is no intervention required other than continuation of lipid management which she has in place. Patient has a history of abdominal aortic aneurysm which is small in size and probably does not need to be started again for 1 or 2 years. A-fib ([facility] V24, [facility] V28) 03/30/2025 Overview (03/30/2025): unspecified Assessment & Plan (03/31/2025 1:08 PM EDT): Patient with a history of A-fib. On Eliquis no bleeding issues.I told the patient that the ILR can come out anytime she wants but she may want to just leave it in until the battery dies and then take it out at that point. 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 Since being anticoagulated she has had no further episodes of embolization. Will continue present anticoagulation and monitoring. Orders: ECG 12 lead apixaban (ELIQUIS) 5 mg tablet; Take 1 tablet (5 mg total) by mouth 2 (two) times a day. ezetimibe (ZETIA) 10 mg tablet; Take 1 tablet (10 mg total) by mouth 1 (one) time each day. metoprolol succinate (TOPROL-XL) 25 mg 24 hr tablet; Take 1 tablet (25 mg total) by mouth 1 (one) time each day. Do not crush or chew. rosuvastatin (CRESTOR) 40 mg tablet; Take 1 tablet (40 mg total) by mouth 1 (one) time each day. telmisartan (MICARDIS) 20 mg tablet; Take 1 tablet (20 mg total) by mouth 1 (one) time each day. Encounters Date Type Department Care Team Description 03/31/2025 8:20 AM EDT Office Visit [facility] [address] [place] [address] Reuben Hernadez MD Atrial fibrillation, unspecified type (CMS/HCC V24, CMS/HCC V28) (Primary Dx); Chronic bilateral low back pain without sciatica; Peripheral vascular disease (CMS/HCC V24) 03/31/2025 Telephone [facility] [address] [place] [address] Reuben Hernadez MD 01/23/2025 Telephone [facility] [address] [place] [address] Reuben Hernadez MD 01/23/2025 Telephone [facility] [address] [place] [address] Reuben Hernadez MD from Last 3 Months Surgical History Surgery Date Site/Laterality Comments OTHER SURGICAL HISTORY 2001 PROCEDURE:Lt knee replacement;COMMENT:Dr Turner OTHER SURGICAL HISTORY 2001 PROCEDURE:rt knee replacement;COMMENT:Dr Turner ABDOMINAL HERNIA REPAIR 08/2015 PROCEDURE:ABDOMINAL HERNIA REPAIR;COMMENT:Dr Amador CATARACT EXTRACTION, BILATERAL PROCEDURE:CATARACT EXTRACTION, BILATERAL;COMMENT:LT 05/22/2017, Rt 06/19/2017 REFRACTIVE SURGERY PROCEDURE:REFRACTIVE SURGERY;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, 12/14/2016 ESOPHAGOGASTRODUODENOSCOPY 01/12/2017 PROCEDURE:ESOPHAGOGASTRODUO DENOSCOPY;COMMENT:Metaplasi a/Farooq's mild chronic inflamm, mild reflux esophagitis Dr Arabella GARCIA CONTRACTURE RELEASE 01/08/2014 PROCEDURE:DUPUYTREN CONTRACTURE RELEASE;COMMENT:Dr Jones TONSILLECTOMY 1951 PROCEDURE:TONSILLECTOMY OTHER SURGICAL HISTORY 08/14/2017 Left PROCEDURE:SI joint injection OTHER SURGICAL HISTORY 05/08/2014 PROCEDURE:aright small finger subtotal fasciectomy ;COMMENT:Gabriel Jones ESOPHAGOGASTRODUODENOSCOPY 01/2010 PROCEDURE:ESOPHAGOGASTRODUO DENOSCOPY;COMMENT:Chronic duodenitis c/w Celiac H. Pylori neg Dr Bell ESOPHAGOGASTRODUODENOSCOPY 07/2013 PROCEDURE:ESOPHAGOGASTRODUO DENOSCOPY;COMMENT: Bx mild active chronic inflammation Farooq's no dysplasia, H Pylori neg, EGD COLONOSCOPY 09/2002 PROCEDURE:COLONOSCOPY COLONOSCOPY 01/2010 PROCEDURE:COLONOSCOPY;COMME NT: TIC, INt hemm CHOLECYSTECTOMY 2006 PROCEDURE:LAPAROSCOPIC CHOLECYSTECTOMY APPENDECTOMY 1962 PROCEDURE:APPENDECTOMY BREAST BIOPSY [...] cancer DX:Sc reening for colon cancer;COMMENT:09/2002, 01/2010 JEAN CARLOS, Nolberto hemm, 05/2018 stool neg Migraines DX:Migraines Chronic [...] 06/10/2018: Neg AAA (abdominal aortic aneury sm) ([facility] V24) DX:AAA (abdominal aortic aneurysm) ([facility]);COMMENT:08/2018 CT- 3.2 infrarenal AAA CKD (chronic kidney disease) stage 3, GFR 30-59 ml/min ([facility] V24, [facility] V28) DX:CKD (chroni c kidney disease) stage 3, GFR 30-59 ml/min ([facility]) Screening for osteoporosis DX:Me reening for osteoporosis;COMMENT:Dr Trent 12/18/2016 DEXA: T-1.6 [...] Years Used Date Smoking Tobacco: Former Cigarettes Passive Smoke Exposure: Past Smokeless Tobacco: Never Tobacco Cessation:Counseling Given: Not Answered Comments:Quit smoking 40 years, 0.5 ppd Alcohol Use Standard Drinks/Week Comments Yes 4 (1 standard drink = 0.6 oz pure alcohol) 1-2 times a week-- glass of wine Comments Unknown Sex and Gender Information Value Date Recorded Sex Assigned at Not on file Legal Sex Female 6:27 AM EST Gender Identity Not on file Sexual Orientation Not on file Obstetrics History Last Filed Vital Signs Vital Sign Reading Time Taken Comments Blood Pressure 122/70 03/31/2025 8:16 AM EDT Pulse 63 03/31/2025 8:16 AM EDT Temperature - - Respiratory Rate - - Oxygen Saturation 98% 03/31/2025 8:16 AM EDT Inhaled Oxygen Concentration - - Weight 70.8 kg (156 lb) 03/31/2025 8:16 AM EDT Height 172.7 cm (5' 8 ) 03/31/2025 8:16 AM EDT Body Mass Index 23.72 03/31/2025 8:16 AM EDT Plan of Treatment Upcoming Encounters Date Type Department Care Team (Late st Contact Info) Description 06/22/2025 8:00 AM EST Ancillary Procedure [facility] [address] [facility] [address] [place] [address] Health Maintenance Due Date Last Done Comments RSV Immunization Adult Patients (1 - 1-dose 75+ series) 2021 Depression Screening 07/02/2024 Falls Risk Assessment 10/16/2024 Hepatitis C Screening 10/16/2024 Medicare Annual Wellness Visit 10/16/2024 Social Influencers of Health Screening 10/16/2024 COVID-19 Vaccine ( season) 2025 04/10/2023, 05/22/2022, 03/27/2021 Influenza Vaccine (#1) 2025 , 04/10/2023, 05/22/2022, Additional history exists Hypertension/CHF/CAD Annual BMP Blood Test 03/31/2025 05/19/2020, 05/19/2020, 11/13/2018 DTaP,Tdap,and Td Vaccines (2 - Td or Tdap) 04/26/2025 04/26/2015 Cholesterol Screening (Lipid Panel) 05/19/2025 05/19/2020, 05/19/2020, 11/13/2018 Osteoporosis Screening (Bone Density Screening) 12/20/2028 12/20/2018 Pneumococcal Vaccine: 50+ Years Completed 03/06/2017, 09/21/2015 Zoster Vaccines Completed 06/04/2020, 03/18/2020 HIB Vaccines Aged Out No longer eligi [...] 20 months Aged Out No longer eligible based on patient's age to complete this topic Varicella Vaccines Aged Out No longer eligible based on patient's age to complete this topic Procedures Procedure Name Priority Date/Time Associated Diagnosis Comments ECG 12-LEAD Routine 03/31/2025 8:32 AM EDT Atrial fibrillation, unspecified type (CMS/HCC V24, CMS/HCC V28) [facility] DEXA AXIAL SKELETON Routine 12/20/2018 11:49 AM EDT Other specified disorders of bone density and structure, unspecified site from Last 3 Months or Most Recently Relevant to Health Maintenance Results * ECG 12 lead (03/31/2025 8:32 AM EDT) Ventricular Rate ECG 63 BPM GEMUSE Atrial Rate 63 BPM GEMUSE P-R Interval 166 ms GEMUSE QRS Duration 70 ms GEMUSE Q-T Interval 402 ms GEMUSE QTc 411 ms GEMUSE P Wave [place] 54 degrees GEMUSE R [place] 33 degrees GEMUSE T [place] 40 degrees GEMUSE ECG Interpretation Normal sinus rhythm Normal ECG When compared with ECG of 27-SEP-2015 06:31, ST no longer elevated in Lateral leads Confirmed by Mary Ellen HERNADEZ, REUBEN ([id number]) on 03/31/2025 1:01:09 PM GEMUSE 03/31/2025 8:32 AM EDT 03/31/2025 1:01 PM EDT us Reuben Hernadez MD ECG ORDERABLES Final Result JEANNE * SAGE DEXA AXIAL SKELETON (12/20/2018 11:49 AM EDT) Anatomical Region Laterality Modality Mammography 12/20/2018 10:4 5 AM EDT Narrative 12/20/2018 11:49 AM EDT [facility] Diagnostic Imaging Department [address] [place], [place] [id number] Patient: ANAHIMORGAN /Age/Sex: 1945 - 73 - F Unit#: [id number] [facility] Ordering Physician: ZACHARIAH ALVARADO MD, PHD Sage Dexa Axial Skeleton [...] probability of hip fracture of 5.4%. Code 57270 Dictating Physician: STACEY BRANCH MD Electronically Signed by: STACEY BRANCH MD Dic Date/Time: 12/20/18 1148 Sign date/Time: 12/20/18 1149 Procedure Note Stacey Branch - 06/20/2022 [facility] Diagnostic Imaging Department [address] [place] [address] Patient: ANAHIMORGAN Prakash D.O.B./Age/Sex: 1945 - 73 - F Unit#: [id number] Location/Status: [facility] Mnemonic/[facility]ing [facility] Ordering Physician: ZACHARIAH ALVARADO MD, PHD Sage Dexa Axial Skeleton [...] density of the femurs bilaterally is 0.75 gm/cg8pqgrq is 78% of that of young normals and 92% of that of age matched controls.This yields a T-score of -1.8 and a Z-score of -0.6 which is diagnostic of osteopenia. IMPRESSION: 1. Osteopenia. 2. FRAX analysis yields a 10-year probability of major osteoporoticfracture of 17.0% and a 10-year probability of hip fracture of 5.4%. Code 79948 Dictating Physician: STACEY BRANCH MD Electronically Signed by: STACEY BRANCH MD Dic Date/Time: 12/20/18 1148 Sign date/Time: 12/20/18 1149 Zachariah Alvarado MD IMG BI PROCEDURES Final R esult from Last 3 Months or Most Recently Relevant to Health Maintenance Insurance [employer] - [place] MEDICARE ADVANTAGE Care Teams Data Visualization Developer Relationship Specialty Start Date End Date Della Ellison MD [address] [place] [address] PCP - General Internal Medicine 03/31/25
--- OUTSIDE RECORDS SUMMARY | 2025-04-14 09:41 | XMS_ITS | Encounter Summary ---
Author Organization [facility] Address [address] [place] [address] Care Team Providers Care Angle Dozer Operator Name Role Phone Della Ellison MD Primary Care Provider Benjamín Devries MD Unavailable [phone] Benjamín Devries MD Unavailable [phone] Reason for Visit * Reason Onset Date Comments Samples 10/24/2024 Encounter Details Date Type Department Care Team (Late st Contact Info) Description 10/24/2024 Telephone [facility] Cardiology [address] [place] [address] Benjamín Devries MD [address] [place] [address] [place] [id number] Samples Social History Tobacco Use Types Packs/Day Years [...] encounter Miscellaneous Notes * Telephone Encounter - Ofelia Albarran - 04/09/2025 11:05 AM EDT . documented in this encounter Plan of Treatment Upcoming Encounters Date Type Department Care Team (Late st Contact Info) Description 11/06/2025 2:00 PM EDT Office Visit [facility] Cardiology [place] [address] [facility] [address] [place] [address] Benjamín Devries MD [address] [place] [address] documented as of this encounter Visit Diagnoses Diagnosis PAF (paroxysmal atrial fibrillation) (03/25 identified on ILR history of retinal artery embolization) Atrial fibrillation documented in this encounter Care Teams Angle Dozer Operator Relationship Specialty Start Date End Date Della Ellison MD [address] [place] [address] PCP - General 03/21/21 Benjamín Devries MD [address] [place] [address] Cardiovascular Disease 03/14/22 Benjamín Devries MD [address] [place] [address] Primary Warehouse Handler Cardiovascular Disease 08/23/23 documented as of this encounter
--- OUTSIDE RECORDS SUMMARY | 2025-04-14 09:41 | XMS_ITS | Clinical Summary ---
Author Organization [facility] Address [address] [place] [address] Care Team Providers Care Associate Professor Of Pathology Name Role Phone Rachel Brunoth Sophie AMATO Primary Care Provider [phone] Allergies Active Allergy Reactions Criticality Noted Date [...] age to complete this topic Care Teams Associate Professor Of Pathology Relationship Specialty Start Date End Date Beti Bruno DO PCP - General Family Medicine 11/21/17
--- OUTSIDE RECORDS SUMMARY | 2025-04-14 09:41 | XMS_ITS | Encounter Summary ---
Author Organization [facility] Address [address] [place] [address] Care Team Providers Care Livestock Agent Name Role Phone Della Ellison MD Primary Care Provider [phone] Benjamín Devries MD Unavailable [phone] Benjamín Devries MD Unavailable [phone] Encounter Details Date Type Department Care Team (Late st Contact Info) Description 03/26/2024 Scanned Document [facility] Cardiology [address] [place] [phone] Benjamín Devries MD [address] [place] [address] [place] [phone] Social History Tobacco Use Types Packs/Day Years [...] Description 11/06/2025 2:00 PM EDT Office Visit [facility] Cardiology [place] [address] [facility] [address] [place] [address] Benjamín Devries MD [address] [place] [address] documented as of this encounter Visit Diagnoses Not on filedocumented in this encounter Care Teams Livestock Agent Relationship Specialty Start Date End Date Della Ellison MD [address] [place] [address] PCP - General 03/21/21 Benjamín Devries MD [address] [place] [address] Cardiovascular Disease 03/14/22 Benjamín Devries MD [address] [place] [address] Primary Tube Test Technician Cardiovascular Disease 08/23/23 documented as of this encounter
--- OUTSIDE RECORDS SUMMARY | 2025-04-14 09:41 | XMS_ITS | Encounter Summary ---
Author Organization [facility] Address [address] [place] [address] Care Team Providers Care Woods Rider Name Role Phone Della Ellison MD Primary Care Provider Benjamín Devries MD Unavailable [phone] Benjamín Devries MD Unavailable [phone] Encounter Details Date Type Department Care Team (Late st Contact Info) Description 10/20/2022 Scanned Document [facility] PRIMARY CARE SCAN Primary Care, Scan Social History Tobacco Use Types Packs/Day Years [...] Description 11/06/2025 2:00 PM EDT Office Visit [facility] Cardiology [address] [place] [phone] Benjamín Devries MD [address] [facility] [address] [place] [address] documented as of this encounter Visit Diagnoses Not on filedocumented in this encounter Care Teams Woods Rider Relationship Specialty Start Date End Date Della Ellison MD [address] [place] [address] PCP - General 03/21/21 Benjamín Devries MD [address] [place], [place] [id number] Cardiovascular Disease 03/14/22 Benjamín Devries MD [address] [place], [place] [phone] Primary Core Filer Cardiovascular Disease 08/23/23 documented as of this encounter
--- OUTSIDE RECORDS SUMMARY | 2025-04-14 09:41 | XMS_ITS | Encounter Summary ---
Author Organization [facility] Address [address] [place] [address] Care Team Providers Care Flatwork Washer Name Role Phone Della Ellison MD Primary Care Provider [phone] Benjamín Devries MD Unavailable [phone] Benjamín Devries MD Unavailable [phone] Reason for Visit * Reason Comments Other samples Encounter Details Date Type Department Care Team (Late st Contact Info) Description 04/15/2024 Telephone [facility] Cardiology [address] [place] [phone] Benjamín Devries MD [address] [place] [address] [place] [phone] Other (samples) Social History Tobacco Use Types Packs/Day Years [...] EDT Office Visit [facility] Cardiology [address] [place] [address] Benjamín Devries MD [address] [place] [address] documented as of this encounter Visit Diagnoses Diagnosis PAF (paroxysmal atrial fibrillation) (03/25 identified on ILR history of retinal artery embolization) Atrial fibrillation documented in this encounter Care Teams Flatwork Washer Relationship Specialty Start Date End Date Della Ellison MD [address] [place] [address] PCP - General 03/21/21 Benjamín Devries MD [address] [place] [address] Cardiovascular Disease 03/14/22 Benjamín Devries MD [address] [place] [address] Primary Full Stack Software Engineer Cardiovascular Disease 08/23/23 documented as of this encounter
--- OUTSIDE RECORDS SUMMARY | 2025-04-14 09:41 | XMS_ITS | Encounter Summary ---
Author Organization [facility] Address [address] [place] [address] Care Team Providers Care Rehab Trainer Name Role Phone Della Ellison MD Primary Care Provider [phone] Benjamín Devries MD Unavailable [phone] Benajmín Devries MD Unavailable [phone] Encounter Details Date Type Department Care Team (Late st Contact Info) Description 03/25/2024 Scanned Document [facility] Cardiology [address] [place] [phone] Benjamín Devries MD [address] [place] [address] [place] [phone] Social History Tobacco Use Types Packs/Day Years [...] Description 11/06/2025 2:00 PM EDT Office Visit [facility] Cardiology [place] [address] [facility] [place] [address] Benjamín Devries MD [address] [place] [address] documented as of this encounter Visit Diagnoses Not on filedocumented in this encounter Care Teams Rehab Trainer Relationship Specialty Start Date End Date Della Ellison MD [address] [place] [address] PCP - General 03/21/21 Benjamín Devries MD [address] [place] [address] Cardiovascular Disease 03/14/22 Benjamín Devries MD [address] [place] [address] Primary Neurology Physician Cardiovascular Disease 08/23/23 documented as of this encounter
--- OUTSIDE RECORDS SUMMARY | 2025-04-14 09:41 | XMS_ITS | Patient Health Record ---
Author Organization [facility] Address [address] [place] [address] Care Team Providers Care Outside Contractor Sales Name Role Phone Della Ellison MD Primary Care Provider Lavell Landeros [phone] Allergies Allergen (clinical drug ingredient) Drug/Non Drug [...] MG 1 capsule Orally Onc e a day; Duration: 90 days 11/07/2016 Not-Takin g CeleBREX Active traZODone HCl 50 MG 1 tablet at bedtime as needed Orally Once a day; Duration: 30 day(s) Active Telmisartan Active Multi Vitamin/Minerals Active Turmeric 800 mg 1 tablet Orally once a day Active Atorvastatin Calcium Active Gabapentin 300 MG 1 tablet Orally twic e a day Active Immunizations Vaccine Route Administration Date Status Comme nts Influenza Unknown 03/02/2020 Administered Problems Problem Type SNOMED Code ICD Code Onset Dates Problem Status W/U Status Risk Notes Problem Epigastric pain (87606946) Epigastric abdominal pain (R10.13) Active confirmed Problem Screening for malignant neoplasm of colon (347737861) Encounter for screening for malignant neoplasm of colon (Z12.11) Active confirmed Problem Celiac disease (966729346) Celiac disease (K90.0) Active confirmed Problem Gastroesophageal reflux disease without esophagitis (472578450) Gastroesophageal reflux disease without esophagitis (K21.9) Active confirmed Problem Judd's esophagus (216207076) Barretts esophagus without dysplasia (K22.70) Active confirmed Problem Esophageal reflux finding (244009340) Gastroesophageal reflux (K21.9) Active confirmed Problem Diverticulosis of sigmoid colon (568582805) Diverticulosis of sigmoid colon (K57.30) Active confirmed [...] Insured Coverage Start Date Coverage End Date [facility] [address] [place], [place] [id number] [phone] [id number] MORGAN CHRISTIAN Self - patient is the insured MEDICARE OF [place] [address] [place] [address] [id number] MORGAN CHRISTIAN Self - patient is the insured Medical (General) History Medical History History ICD Code CELIAC DISEASE-Dx'd in 2009- -neg labs in 06/2013; normal duodenal biopsies in 2016 COLONOSCOPY WAS NEGATIVE IN January and in 2002 JUDD'S ESOPHAGUS-Dx'd in 2009 ARTHRITIS/Fibromyalgia Denies [place],DM,CVA,Lung disease,renal dise ase Hypercholesterolemia Upper endoscopy 07-14-13--sma [...] 4 back surgeries--03/2019-10/01 020--Lumbar spine-Dr. Saldana in [place], [place]--[facility] [place] [place] Hospitalization History Reason Date(Month/Year) 4 back surgeries [id number]
--- OUTSIDE RECORDS SUMMARY | 2025-04-14 09:41 | XMS_ITS | Clinical Summary ---
Author Organization [facility] Address [address] [place] [address] Care Team Providers Care Telephoto Installer Name Role Phone Della Ellison MD Primary Care Provider [phone] Benjamín Devries MD Unavailable [phone] Benjamín Devries MD Unavailable [phone] Allergies Active Allergy Reactions Criticality Noted Date Comments Gluten Unknown/Patient and Family Unable to Define Medium 11/13/2018 Tramadol GI Intolerance/Nause a/Vomiting,Nausea Only Low 01/29/2019 Medications traZODone (DESYREL) 50 MG tablet Take 1 tablet (50 mg total) by mouth nightly. Active rosuvastatin (CRESTOR) 40 MG tablet Take 1 tablet (40 mg total) by mouth daily. 08/31/19 24 Active metoPROLOL SUCCINATE (TOPROL-XL) 25 MG 24 hr tabletIndications: PAF (paroxysmal atrial fibrillation) (HCC) Take 1 tablet (25 mg total) by mouth every evening. 90 tablet 3 03/27/20 24 Active telmisartan (MICARDIS) 20 MG tabletIndications: Essential hypertension Take 1 tablet (20 mg total) by mouth nightly. 90 tablet 3 08/01/19 25 Active ezetimibe (ZeTIA) 10 MG tabletIndications: Mixed hyperlipidemia Take 1 tablet by mouth once daily 90 tablet 3 09/02/19 25 Active Eliquis 5 MG tabletIndications: PAF (paroxysmal atrial fibrillation) (HCC) Take 1 tablet by mouth twice daily 180 tablet 3 03/31/20 Active apixaban (ELIQUIS) 5 MG tabletIndications: PAF (paroxysmal atrial fibrillation) (HCC) Take 1 tablet (5 mg total) by mouth 2 (two) times a day. 180 tablet 3 03/05/20 25 025 Discontinued Active Problems Problem Noted Date Diagnosed Date PAF (paroxysmal atrial fibri llation) (03/25 identified on ILR history of retinal artery embolization) 03/25/2024 Farooq's esophagus 11/28/2022 11/28/2022 Diverticulosis of sigmoid colon 11/28/2022 11/28/2022 Dupuytren's contracture of right hand 11/28/2022 11/28/2022 Hyperparathyroidism 11/28/2022 11/28/2022 Osteopenia 11/28/2022 11/28/2022 Celiac disease 06/17/2021 GERD (gastroesophageal reflux disease) Hiatal hernia 06/17/2021 Idiopathic peripheral neuropathy 06/17/2021 Status post placement of implantable loop record er 06/02/2021 Overview (06/02/2021): 06/02/2021 Dr. Mederos Essential hypertension 03/21/2021 Carotid artery stenosis, asymptomatic, bilateral 03/21/2021 Overview (10/31/2023): 02/17 BICA<50%, 06/22 no change Assessment & Plan (10/30/2024 3:05 PM EDT): 02/17 BICA<50%, 06/22 no change Assessment & Plan (03/21/2021 7:03 AM EDT): 02/17 BICA<50% AAA (abdominal aortic aneurysm) without rupture 03/21/2021 Overview (10/31/2023): Abdominal aortic imagin06/11/2020 AAA 3.3 cm, Iliacs NWS, 06/21 no change, 06/22 no change Assessment & Plan (10/30/2024 3:05 PM EDT): Abdominal aortic imagin06/11/2020 AAA 3.3 cm, Iliacs NWS, 06/21 no change, 06/22 no change Assessment & Plan (10/31/2023 7:01 AM EDT): Abdominal aortic imagin06/11/2020 AAA 3.3 cm, Iliacs NWS, 06/21 no change, 06/22 no change Assessment & Plan (06/20/2021 2:04 PM EST): Abdominal aortic imagin06/11/2020 AAA 3.3 cm, Iliacs NWS, 06/21 no change Assessment & Plan (03/21/2021 7:03 AM EDT): 09/[address] lumbar spine 32 mm, 06/20 33 mm Mixed hyperlipidemia 03/21/2021 Asymptomatic varicose veins of both lower extrem ities 03/21/2021 Migraine without aura 03/21/2021 History of amaurosis fugax 03/21/2021 Overview (12/13/2021): Admit 11/19 [facility] R eye amaurosis fugax. Negative head CT and MRI. Discharge on asa and statin. 06/02/2021 ILR monitor placed Assessment & Plan (11/28/2022 10:04 AM EDT): Admit 11/19 [facility] R eye amaurosis fugax. Negative head CT and MRI. Discharge on asa and statin. 06/02/2021 ILR monitor placed Assessment & Plan (12/13/2021 6:56 AM EDT): Admit 11/19 [facility] R eye amaurosis fugax. Negative head CT and MRI. Discharge on asa and statin. 06/02/2021 ILR monitor placed Assessment & Plan (06/17/2021 2:42 PM EST): Admit 11/19 [facility] R eye amaurosis fugax. Negative head CT and MRI. Discharge on asa and statin. Assessment & Plan (03/21/2021 7:06 AM EDT): Right eye [place] 11/19 Ex-smoker 02/05/2019 Varicose veins of both lower extremities 018 11/28/2022 Encounters Date Type Department Care Team Description 03/28/[address] [phone] Benjamín Devries MD Medication Refill 03/23/2025 10:35 AM EDT Ancillary Procedure [facility] [address] [place] [address], [place] [address] Benjamín Devries MD Cryptogenic stroke (HCC) 03/04/[address] [place] [phone] Benjamín Devries MD Samples 02/20/2025 8:10 AM EDT Ancillary Procedure [address] [place] [address], [place] [address] Benjamín Devries MD Cryptogenic stroke (HCC) 02/13/[address] [phone] Benjamín Devries MD 01/21/2025 9:15 AM EDT Ancillary Procedure [address] [place] [phone] Benjamín Devries MD Cryptogenic stroke (HCC) from Last 3 Months Social History Tobacco Use Types Packs/Day Years Used Date Smoking Tobacco: Former Smokeless Tobacco: Never Tobacco Cessation:Counseling Given: Not Answered Alcohol Use Standard Drinks/Week Comments Yes 1 [...] Orientation Heterosexual (straight) 04/17 9:08 PM EDT Last Filed Vital Signs Vital Sign Reading Time Taken Comments Blood Pressure 130/84 10/31/2024 12:59 PM EDT Pulse 64 10/31/2024 12:59 PM EDT Temperature 36.9 C (98.4 F) 12/14/2021 12:49 PM EDT Respiratory Rate 18 12/04/2022 3:32 PM EDT Oxygen Saturation 99% 10/31/2024 12:59 PM EDT Inhaled Oxygen Concentration - - Weight 75.8 kg (167 lb) 10/31/2024 12:59 PM EDT Height 171.5 cm (5' 7.5 ) 10/31/2024 12:59 PM ED T Body Mass Index 25.77 10/31/2024 12:59 PM EDT Plan of Treatment Upcoming Encounters Date Type Department Care Team (Late st Contact Info) Description 11/06/2025 2:00 PM EDT Office Visit [facility] Cardiology [address] [place] [phone] Benjamín Devries MD [address] [facility] [address] [place] [address] Health Maintenance Due Date Last Done Comments Advance Care Planning 1945 Hepatitis C Virus Screening 1945 DTaP/Tdap/Td Vaccines (1 - Tdap) 1965 Pneumococcal Vaccines 50+ (1 of 1 - PCV) 1996 Zoster (Shingles) Vaccine (1 of 2) 1996 DXA Bone Density (Females,Ages 65 and older) 10/13/2011 RSV Vaccine 60 years and older and Patients (1 - 1-dose 75+ series) 2021 Influenza Vaccine 01/30/2025 03/18/2020, , 05/01/2018, Additional history exists COVID-19 Vaccine ( season) 2025 Hepatitis B Vaccines Aged Out No long er eligible based on patient's age to complete this topic Medical Devices Implanted Type Area Aircraft Stress Analyst Device Identifier Shelf Expiration Date Model / Serial / Lot [id number] Linq Ii Insertable Vest Tailor System - [id number] Implanted:Qty : 1 on 06/02/2021 by Eliel Fish MD at [facility] Implantable Loop Recorder Left: Chest [employer] MINIMALLY INVASIVE T [id number] 07/25/2022 [id number] / [id number] / Procedures Procedure Name Priority Date/Time Associated Diagnosis Comments IMPLANTABLE LOOP RECORDER REMOTE EVAL, 27913 G2066 Routine 03/23/2025 10:34 AM EDT Cryptogenic stroke (HCC) IMPLANTABLE LOOP RECORDER REMOTE EVAL, [id number] G2066 Routine 02/20/2025 7:59 AM EDT Cryptogenic stroke (HCC) IMPLANTABLE LOOP RECORDER REMOTE EVAL, [id number] G2066 Routine 01/21/2025 9:09 AM EDT Cryptogenic stroke (HCC) from Last 3 Months Results * IMPLANTABLE LOOP RECORDER REMOTE EVAL, 10962 G2066 (03/23/2025 10:34 AM EDT) Anatomical Region Laterality Modality Cardiac Device Narrative 03/26/2025 8:34 PM EDT No 30-day cardiac dysrhythmia Benjamín Devries MD [facility] ORDERABLES Final Result * IMPLANTABLE LOOP RECORDER REMOTE EVAL, 16405 G2066 (02/20/2025 7:59 AM EDT) Anatomical Region Laterality Modality Cardiac Device Narrative 03/26/2025 8:34 PM EDT No 30-day cardiac dysrhythmias Benjamín Devries MD [facility] ORDERABLES Final Result * IMPLANTABLE LOOP RECORDER REMOTE EVAL, 32868 G2066 (01/21/2025 9:09 AM EDT) Anatomical Region Laterality Modality Cardiac Device Narrative 02/18/2025 3:23 PM EDT No 30-day cardiac dysrhythmias Benjamín Devries MD [facility] ORDERABLES Final Result from Last 3 Months Insurance BLUE CROSS MGD MEDICARE OUT OF NETWORK Care Teams Telephoto Installer Relationship Specialty Start Date End Date Della Ellison MD [address] [place] [address] PCP - General 03/21/21 Benjamín Devries MD [address] [place] [address] Cardiovascular Disease 03/14/22 Benjamín Devries MD [address] [place] [address] Primary Cardiothoracic Surgeon Cardiovascular Disease 08/23/23
--- OUTSIDE RECORDS SUMMARY | 2025-04-14 09:41 | XMS_ITS | Patient Health Record ---
Author Organization [facility] Billing Info Address [address] [place] [address] Care Team Providers Care Technical Publications Manager Name Role Phone SHIVAMAGDIEL RAMÍREZ Primary Care Provider [phone] Allergies Allergen (clinical drug ingredient) Drug/Non Drug Allergy documented on EMR Reaction Allergy Type Onset Date Status GLUTEN Unknown Drug Allergy Active Reason For Referral No Information Medications Medication SIG (Take, Route, Frequency, Duration) Notes Start Date End Date Status Trazodone HCl 50 MG TAKE 1 TABLET BY MARIAM TH ONCE DAILY AT BEDTIME NEEDED for 30 Active Ezetimibe-Simvastatin 10-40 MG 1 tablet Orally Once a day for 30 day(s) Active Co Q 10 10 MG as directed Orally Not-Taking Celebrex 200 MG 1 capsule with food Orally Twice a day Active Vitamin E Not-Taking Furosemide 40 MG 1 tablet Orally Once a day Active Atorvastatin Calcium 20 MG 1 tablet Orally Once a day for 30 day(s) Not-Taking Fluticasone Propionate 50 MCG/ACT 1 spray in each nostril Nasally Once a day for 30 days 10/20/2022 Not-Taking Telmisartan 20 MG 1 tablet Orally Once a day Active Benzonatate 200 MG 1 capsule as needed Orally Three times a day for 30 days 10/20/2022 Not-Taking Gabapentin 300 MG 1 capsule Orally Onc e a day for 30 day(s) Active TURMERIC Not-Taking Vitamin B Complex - as directed Orally Active Multivitamin Not-New ing Latanoprost 0.005 % 1 drop into each eye in the evening Ophthalmic Once a day Not-Taking Biotin Active Azelastine HCl 0.15 % 2 sprays in each nostril Nasally Once a day for 7 day(s) 07/13/2022 Not-Taking Omeprazole 20 MG 1 capsule 30 minutes before morning meal Orally Once a day for 30 day(s) PRN Not-Taking Guaifenesin-Codeine 100-10 MG/5ML 10 mL as needed Orally every 6 hrs for 7 day(s) 09/07/2022 Not-Taking Aspirin 81 81 MG 1 tablet Orally Once a day for 30 day(s) Active Lutein 10 MG 1 tablet with a meal Orally Once a day for 30 day(s) Not-Taking Immunizations Vaccine Route Administration Date Status Comme nts zCOVID-19 (Pfizer-BioNTech P urple Cap Comirnaty) 12+yrs, NO PRES Unknown 07/21/2020 Administered zCOVID-19 (Pfizer-BioNTech P urple Cap Comirnaty) 12+yrs, NO PRES Unknown 08/11/2020 Administered Social History Tobacco Use: Social History Observation Description Date Details (start date - stop date) Former Smoker NA - NA Tobacco Status: Question Answer Notes Patient is a former smoker Section Notes: Lives with partner, fish , travels to [place] every 6 months. Lives with partner, fish , travels to [place] every 6 months. Lives with partner, fish , travels to [place] every 6 months. Lives with partner, fish , travels to [place] every 6 months. Lives with partner, fish , travels to [place] every 6 months. Lives with partner, fish , travels to [place] every 6 months. Lives with partner, fish , travels to [place] every 6 months. Encounters Encounter Location Date Provider Diagnosis [id number] [facility] [address] [phone] 05/27/2024 MAGDIEL VELASQUEZ Plan Of Treatment Pending Test Test Name Order Date EKG W/ INTERPRETATION (02702) INACTIVE 0 10/20/2022 CREATININE, 24 HOUR URINE (Q-381) 2023 SODIUM WITH CREATININE, 24 HOUR URINE (Q -838) 08/16/2023 COMPREHENSIVE METABOLIC PANEL (REFL) CUS MARY ([id number]) 08/16/2023 Insurance Providers Payer Name Payer Address Payer Phone Subscriber Number Group Number Insured Name Patient Relationship to Insured Coverage Start Date Coverage End Date [place] [address] JUMANA DRIVER [id number] Giovana Mishra Self - patient is the insured Medical (General) History Medical History History ICD Code L3-S1 fusion d/t spinal stenosis Hiatal hernia GERD HTN HLD Hyperparathyroidism- [place] 10.9 06/2021 Neuropathy in lower ext related to spine surgery TIA in 2020 Glaucoma Surgical History Surgery Date(Month/Year) back surgery 03/2014 back surgery 10/2019 Heart monitor Linq monitor 06/02/21 Hospitalization History Reason Date(Month/Year) TIA R eye 10/2020
--- OUTSIDE RECORDS SUMMARY | 2025-04-14 09:41 | XMS_ITS | Patient Health Record ---
Author Organization [facility], [facility] Address [address] [place] [address] [address] [place] [address] Care Team Providers Care Supervisor Beet End Name Role Phone Hal Barney M.D. Primary Care Provider Unav ailable ZUNILDA ARELLANO Unavailable [phone] Allergies Allergen (clinical drug ingredient) Drug/Non Drug Allergy documented on EMR Reaction Allergy Type Onset Date Status tramadol Tramadol HCl Unknown Drug Allergy Acti ve Reason For Referral No Information Medications Medication SIG (Take, Route, Frequency, Duration) Notes Start Date End Date Status Pravastatin Sodium 20 MG 1 tablet Orally Once a day Active Meloxicam 15 MG 1 tablet Orally Once a day Active Gabapentin 300 MG 1 capsule Orally Once a day Active Social History Tobacco Use: Social History Observation Description Date Details (start date - stop date) Former Smoker NA - NA Tobacco Use/Smoking Question Answer Notes Are you a former smoker How long has it been since you last smoked? > 10 years Additional Findings: Tobacco Non-User Current no n-smoker Alcohol Screen (Audit-C) Question Answer Notes Did you have a drink contain ing alcohol in the past year? Yes How often did you have a dri nk containing alcohol in the past year? Monthly or less (1 point) How many drinks did you have on a typical day when you were drinking in the past year? 1 or 2 drinks (0 point) How often did you have 6 or more drinks on one occasion in the past year? Never (0 point) Points 1 Interpretation Negative Problems Problem Type SNOMED Code ICD Code Onset Dates Problem Status W/U Status Risk Notes Problem Lumbosacral spondylosis without myelopathy (26670907) Other spondylosis with radiculopathy, lumbar region (M47.26) Active confirmed Problem Lumbosacral spondylosis without myelopathy (17291570) Other spondylosis with radiculopathy, lumbosacral region (M47.27) Active confirmed Problem Spinal stenosis of lumbar region (89417577) Spinal stenosis, lumbar region (M48.06) Active confirmed Problem Neuralgia (11817522) Neuralgia a nd neuritis, unspecified (M79.2) Active confirmed Problem Low back pain (026981177) Low back pain (M54.5) Active confirmed Problem Acquired spondylolisthesis (045062881) Spondylolisthes is, lumbosacral region (M43.17) Active confirmed Problem Acquired spondylolisthesis (622162693) Spondylolisthes is, lumbar region (M43.16) Active confirmed Problem Neurogenic claudication (141779394) Spinal stenosis, lumbar region with neurogenic claudication (M48.062) Active confirmed Plan Of Treatment No Information Insurance Providers Payer Name Payer Address Payer Phone Subscriber Number Group Number Insured Name Patient Relationship to Insured Coverage Start Date Coverage End Date BCBS MEDICARE ADV PPO [address] [place] [address] [phone] [id number] MORGAN CHRISTIAN Self - patient is the insured Atty Payment Medical Records MORGAN CHRISTIAN Self - patient is the insured Medical (General) History Medical History History ICD Code Fibromyalgia M79.7 Gastro-esophageal reflux disease without esophagitis K21.9 Other hyperlipidemia E78.4 Unspecified age-related cataract H25.9 Unspecified visual loss H54.7 Headache R51 Primary generalized (osteo)arthritis M15 .0 Disorder of thyroid, unspecified E07.9 Urinary tract infection, site not specif ied N39.0 Surgical History Surgery Date(Month/Year) abdomen 2016 bilateral knee surgery 2004 appendectomy 1970 Hospitalization History Reason Date(Month/Year) hospitalization surgeries
[2025-04-14 10:06] LABS: MANUAL DIFF FLAG NO
[2025-04-14 10:28] LABS: Hematocrit 41.1 % (37.0-47.0); Hemoglobin 13.5 g/dl (12.0-16.0); Imm Gran Abs Auto 0.03 X10*3/uL (0.00-0.03); Imm Gran Pct Auto 0.4 % (0.0-0.4); Lymphocytes Absolute Auto 1.9 X10*3/uL (1.2-4.9); Mean Corpuscular HGB Conc 32.8 g/dl (31.0-35.0); Mean Corpuscular Hemoglobin 31.2 pg (27.0-33.0); Mean Corpuscular Volume 94.9 fL (80.0-98.0); NRBC Abs Auto 0.000 X10*3/uL (0.0-0.012); NRBC Pct Auto 0.0 /100WBC (0.0-0.2); Platelet Count 192 X10*3/uL (160-400); Red Blood Count 4.33 X10*6/uL (4.20-5.50); White Blood Count 7.5 X10*3/uL (4.8-10.8)
[2025-04-14 11:20] LABS: Alanine Aminotransferase 31 U/L (0-31); Albumin Level 4.2 g/dL (3.5-5.0); Alkaline Phosphatase 58 U/L (39-117); Anion Gap 11 (12-20); Aspartate Amino Transferase 35 U/L (5-31); Blood Urea Nitrogen 16 mg/dL (9-16); Calcium 8.7 mg/dL (8.4-10.2); Carbon Dioxide 28 mmol/L (22-29); Chloride 109 mmol/L (96-108); Estimated Glomerular Filt Rate > 60; Iron 76 mcg/dL (30-160); Percent Iron Saturation 29 % (15-50); Potassium 4.0 mmol/L (3.3-5.1); Sodium 144 mmol/L (135-145); Total Iron Binding Capacity 259 mcg/dL (228-428); Total Protein 6.3 g/dL (6.5-8.0); Unsaturated Iron Binding 183 ug/dL
[2025-04-14 20:15] LABS: Leukocytes Stool Qualitative NEGATIVE (NEGATIVE)
[2025-04-15 13:11] LABS: E. coli EAEC Not Detected (Not Detect.); E. coli EPEC Not Detected (Not Detect.); E. coli ETEC Not Detected (Not Detect.); E. coli STEC Not Detected (Not Detect.); Shigella sp./EIEC Not Detected (Not Detect.)
== END 2025-04-14 09:03 | disposition home or self-care (01) ==
LOC: HO.HMGCLDS 09:02
PROVIDERS: PCP Internal Medicine; Visit Provider Internal Medicine
DX: R53.83 Other fatigue (principal); R19.7 Diarrhea, unspecified
CPT/HCPCS: 36415; 80053; 83540; 84443; 85025; 85652; 87507; 89055